=== PATIENT | female | born 1940 | race Caucasian/White ===

== ENCOUNTER 2018-05-29 12:13 | Inpatient (IN) | payer MEDICARE, BC ==
[2018-05-29] MEDS ORDERED: Zofran 4 MG/2 ML VIAL IV ONE (12:59)
[2018-05-29] MEDS ORDERED: Sodium Chloride 0.9% 1000 ML 1,000 ML IV SCH (13:00)
--- NOTE | 2018-05-29 13:06 | ERPHSYRPT ---
- History of Present Illness Time Seen by Provider: 05/29/18 12:59 Historian: patient Exam Limitations: no limitations Patient Subjective Stated Complaint: left lower abdominal pain x 1 1/2 weeks. hx diverticulitis vomiting x 2 yesterday. has had constipation but did have a small amount of stool today. Triage Nursing Assessment: alert and oriented. to BR prior to placemnt in room.. states pain in LLQ x 1 1/2 weeks../ seen at [facility] saturday and was told she had constipation and diverticulitis. abd tender on palpation to left lower abd. + BS but hypo. denies fever or urinary sx. Physician History: 77-year-old white female with history of diverticulitis, high blood pressure, back surgery and sciatica She arrives with complaint of pain in the left lower quadrant of her abdomen going on for 1-1/2 weeks. She was seen by a local nurse practitioner 2 days ago KUB was obtained and a CBC was obtained. Patient was apparently placed on Flagyl, amoxicillin, lactulose for constipation and apparent diverticulitis. Patient states she continues to have left lower quadrant pain she states she is now vomiting. She denies any fevers she does state she has had some frequent urination. Past medical history includes high blood pressure, diverticulitis, back surgery , sciatica, skin cancer Past surgical history includes back surgery, hysterectomy, appendectomy, bilateral ankle ORIF, left knee arthroscopically Social history patient denies tobacco alcohol or illicit drug use. Timing/Duration: week(s) (pain for 1-1/2 weeks vomiting for 2 days) Activities at Onset: none Quality: cramping Abdominal Pain Onset Location: LLQ Pain Radiation: no radiation Severity of Pain-Max: moderate Severity of Pain-Current: moderate Modifying Factors: Improves With: nothing Associated Symptoms: nausea, vomiting, No back, No chest pain, No diaphoresis, No diarrhea, No fever/chills, No fatigue, No headache, No heartburn, No loss of appetite, No neck pain, No rash, No shortness of breath, No syncope Previous symptoms: no prior history, recently seen (patient seen by local nurse practicioner 2 days ago) Allergies/Adverse Reactions: No Known Drug Allergies Allergy (Unverified 05/29/18 12:51) - Review of Systems Constitutional: No Fever, No Chills Eyes: No Symptoms Ears, Nose, & Throat: No Symptoms Respiratory: No Cough, No Dyspnea Cardiac: No Chest Pain, No Edema, No Syncope Abdominal/Gastrointestinal: Abdominal Pain (llq abdominal pain), Nausea, Vomiting Genitourinary Symptoms: Frequency, No Dysuria, No Hematuria, No Hesitancy, No Incontinence, No Urgency, No Urinary Retention, No Flank Pain, No Menorrhagia, No , No Vaginal Bleeding, No Vaginal Discharge, No Vaginal Itching Musculoskeletal: No Back Pain, No Neck Pain Skin: No Rash Neurological: No Dizziness, No Focal Weakness, No Sensory Changes Psychological: No Symptoms Endocrine: No Symptoms All Other Systems: Reviewed and Negative - Past Medical History Pertinent Past Medical History: Yes Neurological History: No Pertinent History Cardiac History: No Pertinent History Respiratory History: No Pertinent History Endocrine Medical History: No Pertinent History Musculoskeletal History: Arthritis, Degenerative Disk Disease GI Medical History: Diverticulitis, Diverticulosis - Past Surgical History Past Surgical History: No - Social History Smoking Status: Never smoker Exposure to second hand smoke: No Drug Use: none Patient Lives Alone: No - Female History Hx Now: No - Nursing Vital Signs Nursing Vital Signs: Initial Vital Signs Temperature 98.2 F 05/29/18 12:41 Pulse Rate 94 H 05/29/18 12:41 Respiratory Rate 18 05/29/18 12:41 Blood Pressure 171/95 05/29/18 12:41 O2 Sat by Pulse Oximetry 97 05/29/18 12:41 Pain Scale Pain Intensity 2 - Physical Exam General Appearance: mild distress Eye Exam: PERRL/EOMI, eyes nml inspection Ears, Nose, Throat Exam: normal ENT inspection, pharynx normal, moist mucous membranes Neck Exam: normal inspection, non-tender, supple, full range of motion Respiratory Exam: normal breath sounds, lungs clear, No respiratory distress Cardiovascular Exam: regular rate/rhythm, normal heart sounds, normal peripheral pulses Gastrointestinal/Abdomen Exam: soft, normal bowel sounds, tenderness (left lower quadrant tenderness), No distention, No mass, No guarding, No ecchymosis, No pulsatile mass, No rebound, No hernia, No hepatomegaly, No organomegaly Back Exam: normal inspection, normal range of motion, No CVA tenderness, No vertebral tenderness Extremity Exam: normal inspection, normal range of motion, pelvis stable Neurologic Exam: alert, oriented x 3, cooperative, preventive medicine officer II-XII nml as tested, normal mood/affect, nml cerebellar function, sensation nml, No motor deficits Skin Exam: normal color, warm, dry SpO2 Interpretation: normal (97%) SpO2: 97 Oxygen Delivery: Room Air - Course Nursing assessment & vital signs reviewed: Yes - CT Exams Abdomen/Pelvis CT Interpretation: Discussed w/radiologist (CT abdomen and pelvis: Impression: 1. Sigmoid diverticulitis. No free fluid/air. 2. Moderate fecal stasis. 3. Distended gallbladder without gallstones. Ultrasound may yield further information if clinically warranted. 4. Incidental hepatic cysts, benign appearing pelvic macro calcification, moderate hiatal hernia, multilevel degenerative spondylosis and grade 1-2 L4 spondylolisthesis with posterior fixation.) Ordered Tests: Active Orders 24 hr Category Date Time Status IV Insertion STAT Care 05/29/18 12:59 Active ABDOMEN AND PELVIS W/0 CONTRAS [CT] Stat Exams 05/29/18 14:03 Completed AMYLASE Stat Lab 05/29/18 13:25 Completed CBC W DIFF Stat Lab 05/29/18 13:25 Completed CMP Stat Lab 05/29/18 13:25 Completed CULTURE,URINE Stat Lab 05/29/18 13:26 Received LIPASE Stat Lab 05/29/18 13:25 Completed UA W/RFX UR CULTURE Stat Lab 05/29/18 13:26 Completed Medication Summary Generic Name Dose Route Start Last Admin Trade Name Freq PRN Reason Stop Dose Admin Sodium Chloride 1,000 mls @ 100 mls/hr 05/29/18 13:00 05/29/18 13:32 Sodium Chloride 0.9% 1000 Ml IV 06/28/18 12:59 100 mls/hr .Q10H JHON Administration Levofloxacin/Dextrose 500 mg in 100 mls @ 100 mls/hr 05/29/18 15:48 Levofloxacin 500mg/100ml D5w IV 05/29/18 16:47 STAT STA Discontinued Medications Generic Name Dose Route Start Last Admin Trade Name Freq PRN Reason Stop Dose Admin Morphine Sulfate 2 mg 05/29/18 14:57 05/29/18 15:11 Morphine Sulfate 2 Mg Inj IV 05/29/18 14:58 2 mg STAT ONE Administration Morphine Sulfate Confirm 05/29/18 15:08 Morphine Sulfate 2 Mg Inj Administered 05/29/18 15:09 Dose 2 mg .ROUTE .STK-MED ONE Ondansetron HCl 4 mg 05/29/18 12:59 05/29/18 13:32 Zofran 4 Mg/2 Ml Vial IV 05/29/18 13:00 4 mg STAT ONE Administration Ondansetron HCl Confirm 05/29/18 13:29 Zofran 4 Mg/2 Ml Vial Administered 05/29/18 13:30 Dose 4 mg .ROUTE .STK-MED ONE Lab/Rad Data: Laboratory Result Diagrams 05/29/18 13:25 05/29/18 13:25 Laboratory Results 05/29/18 05/29/18 05/29/18 Range/Units 13:26 13:25 13:25 WBC 10.7 H (4.0-10.5) K/mm3 RBC 3.75 L (4.1-5.4) M/mm3 Hgb 11.5 L (12.0-16.0) gm/dl Hct 36.0 (35-47) % MCV 96.0 (78-100) fl MCH 30.6 (26-32) pg MCHC 31.9 L (32-36) g/dl RDW 12.4 (11.5-14.0) % Plt Count 396 (150-450) K/mm3 MPV 9.1 (6-9.5) fl Gran % 80.5 H (36.0-66.0) % Eos # (Auto) 0.08 (0-0.5) Absolute Lymphs (auto) 1.00 (1.0-4.6) Absolute Monos (auto) 0.97 (0.0-1.3) Lymphocytes % 9.4 L (24.0-44.0) % Monocytes % 9.1 (0.0-12.0) % Eosinophils % 0.7 (0.00-5.0) % Basophils % 0.3 (0.0-0.4) % Absolute Granulocytes 8.60 H (1.4-6.9) Basophils # 0.03 (0-0.4) Sodium 140 (137-145) mmol/L Potassium 4.2 (3.5-5.1) mmol/L Chloride 103 (98-107) mmol/L Carbon Dioxide 24 (22-30) mmol/L Anion Gap 17.7 H (5-15) MEQ/L BUN 22 H (7-17) mg/dL Creatinine 1.03 (0.52-1.04) mg/dL Estimated GFR 55.1 ML/MIN Glucose 112 H (74-106) mg/dL Calcium 10.0 (8.4-10.2) mg/dL Total Bilirubin 0.70 (0.2-1.3) mg/dL AST 15 (14-36) U/L ALT 15 (0-35) U/L Alkaline Phosphatase 173 H (38-126) U/L Serum Total Protein 7.5 (6.3-8.2) g/dL Albumin 4.1 (3.5-5.0) g/dL Amylase 50 (30-110) U/L Lipase 58 (23-300) U/L Urine Color JEAN (YELLOW) Urine Appearance SLIGHTLY CLOUDY (CLEAR) Urine pH 5.0 (5-6) Ur Specific [place] 1.031 (1.005-1.025) Urine Protein NEGATIVE (Negative) Urine Ketones TRACE (NEGATIVE) Urine Blood NEGATIVE (0-5) Danilo/ul Urine Nitrite NEGATIVE (NEGATIVE) Urine Bilirubin NEGATIVE (NEGATIVE) Urine Urobilinogen NEGATIVE (0-1) mg/dL Ur Leukocyte Esterase TRACE (NEGATIVE) Urine WBC (Auto) 3-5 (0-5) /HPF Urine RBC (Auto) 3-5 (0-2) /HPF U Epithel Cells (Auto) FEW (FEW) /HPF Urine Bacteria (Auto) RARE (NEGATIVE) /HPF Calcium Oxalate Crystal 11-25 (NEGATIVE) /HPF Urine Mucus (Auto) SLIGHT (NEGATIVE) /HPF Urine Culture Reflexed YES (NO) Urine Glucose NEGATIVE (NEGATIVE) mg/dL - Progress Progress: improved Progress Note: 05/29/18 14:59 Patient has diverticulitis on CT abdomen also distended gallbladder. Patient vomiting at home with Flagyl and amoxicillin apparently taking lactulose as well. Will discuss case with Dr. Escalante. 05/29/18 15:[address] Escalante will place patient on observation provide IV Levaquin and Flagyl. We'll write for Phenergan for nausea and vomiting. Provide IV fluids - Departure Time of Disposition: 15:49 Departure Disposition: Observation Clinical Impression: Diverticulitis Abdominal pain Qualifiers: Abdominal location: left lower quadrant Qualified Code(s): R10.32 - Left lower quadrant pain Condition: Fair Critical Care Time: No Referrals: GUILLAUME ESCALANTE MD [Primary Care Provider] -
[2018-05-29 13:28] LABS: BASOPHIL % 0.3 % (0.0-0.4); Basophil (Absolute #) 0.03 (0-0.4); Eosinophil % 0.7 % (0.00-5.0); Eosinophil (Absolute #) 0.08 (0-0.5); Granulocytes % 80.5 % (36.0-66.0); Hemoglobin 11.5 gm/dl (12.0-16.0); Lymphocytes % 9.4 % (24.0-44.0); Mean Corpuscular Hgb Concent. 31.9 g/dl (32-36); Mean Platelet Volume 9.1 fl (6-9.5); Monocyte (Absolute #) 0.97 (0.0-1.3); Monocytes % 9.1 % (0.0-12.0); Platelet Count 396 K/mm3 (150-450); Red Blood Count 3.75 M/mm3 (4.1-5.4); Red Cell Distribution Width 12.4 % (11.5-14.0); White Blood Count 10.7 K/mm3 (4.0-10.5)
[2018-05-29] MEDS ORDERED: Zofran 4 MG/2 ML VIAL ONE (13:29)
[2018-05-29 13:34] LABS: Appearance SLIGHTLY CLOUDY (CLEAR); Bilirubin NEGATIVE (NEGATIVE); Blood NEGATIVE Ery/ul (0-5); Glucose NEGATIVE (NEGATIVE); Ketones TRACE (NEGATIVE); Leukocyte Esterase TRACE (NEGATIVE); Nitrite NEGATIVE (NEGATIVE); Protein,Urine Dip NEGATIVE (Negative); Specific Gravity 1.031 (1.005-1.025); Urobilinogen NEGATIVE mg/dL (0-1)
[2018-05-29 13:39] LABS: ALBUMIN 4.1 g/dL (3.5-5.0); ANION GAP 17.7 MEQ/L (5-15); BILIRUBIN,TOTAL 0.7 mg/dL (0.2-1.3); Creatinine 1 1.03 mg/dL (0.52-1.04); Potassium 4.2 mmol/L (3.5-5.1); Total Protein 7.5 g/dL (6.3-8.2)
[2018-05-29 14:00] LABS: Mean Corpuscular Hemoglobin 30.6 pg (26-32)
--- NOTE | 2018-05-29 14:52 | XRAY ---
Indication: Left lower quadrant pain. Constipation. Multiple contiguous axial images obtained through the abdomen and pelvis without contrast as ordered. Comparison: None Lung bases demonstrates mild fibrosis/scarring. No infiltrate or effusion. Heart is not enlarged. Moderate sized hiatal hernia with partial intrathoracic stomach. Noncontrasted stomach and bowel loops appear nonobstructed. Patient reports appendectomy and hysterectomy. There is moderate diffuse scattered colonic fecal debris throughout. Scattered sigmoid diverticulosis with mild wall thickening and stranding involving the mid to proximal segment favoring acute diverticulitis. No free fluid/air. There are 2 well-circumscribed benign-appearing pelvic macrocalcifications, largest 2.2 cm. Gallbladder is distended without gallstones. Liver demonstrates a few hepatic cysts, largest left lobe measuring 2.4 cm. Mild scattered vascular calcifications including both kidneys. No AAA. Remaining pancreas, spleen, adrenal glands, kidneys, ureters, and bladder appear unremarkable for noncontrast exam. Osseous structures demonstrates moderate multilevel thoracolumbar degenerative spondylosis. 8-9 mm L4 spondylolisthesis with posterior spinous process fixation hardware. No ventral or inguinal hernias. Impression: 1. Sigmoid diverticulitis. No free fluid/air. 2. Moderate fecal stasis. 3. Distended gallbladder without gallstones. Ultrasound may yield further information if clinically warranted. 4. Incidental hepatic cysts, benign appearing pelvic macrocalcifications, moderate hiatal hernia, multilevel degenerative spondylosis, and grade 1-2 L4 spondylolisthesis with posterior fixation hardware. CT DI 32.60
[2018-05-29] MEDS ORDERED: MORPHINE SULFATE 2 MG INJ IV ONE (14:57)
[2018-05-29] MEDS ORDERED: MORPHINE SULFATE 2 MG INJ ONE (15:08)
[2018-05-29] MEDS ORDERED: Levofloxacin 500MG/100ML D5W 500 MG/100 ML BAG IV STA (15:48)
[2018-05-29] MEDS ORDERED: Levofloxacin 500MG/100ML D5W 500 MG/100 ML BAG IV ONE (16:08)
[2018-05-29] MEDS: FLAGYL 500 MG IVPB 500 MG/100 ML BAG IV SCH (17:22)
[2018-05-29] MEDS: Phenergan 25 MG INJ IV PRN (18:58)
[2018-05-29] MEDS ORDERED: LACTULOSE 20 GM/30ML UD CUP ONE (20:44)
[2018-05-29] MEDS ORDERED: MAALOX ES 30 ML UNIT DOSE ONE (21:04)
[2018-05-29] MEDS: NEURONTIN 300 MG PO SCH (21:05)
[2018-05-29] MEDS: LACTULOSE 20 GM/30ML UD CUP PO SCH (21:05)
[2018-05-29] MEDS ORDERED: MAALOX ES 30 ML UNIT DOSE PO PRN (21:48)
[2018-05-29] MEDS: Zofran 4 MG/2 ML VIAL IV PRN (22:56)
[2018-05-29] MEDS: MORPHINE SULFATE 2 MG INJ IV PRN (22:56)
[2018-05-29] MEDS: Sodium Chloride 0.9% 1000 ML 1,000 ML IV SCH (23:07)
[2018-05-30] MEDS: FLAGYL 500 MG IVPB 500 MG/100 ML BAG IV SCH ×4 (00:52→18:11)
[2018-05-30] MEDS: Sodium Chloride 0.9% 1000 ML 1,000 ML IV SCH ×2 (02:23→14:45)
[2018-05-30 06:49] LABS: BASOPHIL % 0.4 % (0.0-0.4); Basophil (Absolute #) 0.03 (0-0.4); Eosinophil % 0.9 % (0.00-5.0); Eosinophil (Absolute #) 0.08 (0-0.5); Granulocyte Absolute (ANC) 6.54 (1.4-6.9); Granulocytes % 77.2 % (36.0-66.0); Hematocrit 35.5 % (35-47); Hemoglobin 11.1 gm/dl (12.0-16.0); Lymphocyte (Absolute #) 0.93 (1.0-4.6); Mean Cell Volume 97.5 fl (78-100); Mean Corpuscular Hgb Concent. 31.3 g/dl (32-36); Monocyte (Absolute #) 0.89 (0.0-1.3); Monocytes % 10.5 % (0.0-12.0); Platelet Count 413 K/mm3 (150-450); Red Blood Count 3.64 M/mm3 (4.1-5.4); Red Cell Distribution Width 12.7 % (11.5-14.0); White Blood Count 8.5 K/mm3 (4.0-10.5)
[2018-05-30 06:58] LABS: Mean Corpuscular Hemoglobin 30.4 pg (26-32)
[2018-05-30 07:20] LABS: ALBUMIN 3.6 g/dL (3.5-5.0); ALKALINE PHOSPHATASE 149 U/L (38-126); ANION GAP 17.6 MEQ/L (5-15); BLOOD UREA NITROGEN 18 mg/dL (7-17); CHLORIDE 105 mmol/L (98-107); Calcium 8.9 mg/dL (8.4-10.2); Carbon Dioxide 25 mmol/L (22-30); Creatinine 1 0.88 mg/dL (0.52-1.04); Glucose 120 mg/dL (74-106); Potassium 3.6 mmol/L (3.5-5.1); SGOT/AST 15 U/L (14-36); SGPT/ALT 13 U/L (0-35); SODIUM 144 mmol/L (137-145); Total Protein 6.6 g/dL (6.3-8.2)
[2018-05-30] MEDS: MORPHINE SULFATE 2 MG INJ IV PRN ×3 (08:32→20:12)
[2018-05-30] MEDS: Zofran 4 MG/2 ML VIAL IV PRN ×3 (08:32→20:12)
--- NOTE | 2018-05-30 08:45 | PCM.HP ---
History of Present Illness - Chief Complaint Chief Complaint: Diverticulities History of Present Illness: is a 77 year old female normally seen by Dr Paris who [facility] and treated for diverticulitis. She has worsened and been constipated, was put on augmentin. has a history of diverticulitis with microperforation in the past and did not require surgery, was under Dr José's care. she has had no fever, no rectal bleeding. - Review of Systems Constitutional: No Fever, No Chills Respiratory: No Cough, No Short Of Breath Cardiac: No Chest Pain, No Edema, No Syncope Abdominal/Gastrointestinal: Abdominal Pain, Nausea, Vomiting, Constipation Genitourinary Symptoms: No Dysuria Musculoskeletal: No Back Pain, No Neck Pain Skin: No Rash All Other Systems: Reviewed and Negative Medications & Allergies Home Medications: Home Medication List Amoxicillin/Potassium Clav [Augmentin 875-125 Tablet] 1 tablet PO BID 05/29/18 [ History Confirmed 05/29/18] Aspirin EC 81 mg [Ecotrin 81 mg] 81 mg PO DAILY 05/29/18 [History Confirmed 05/29/18] Calcium Carb, Citrate/Vit D3 [Calcium + D3 ER Tablet] 1 each PO DAILY 05/29/18 [ History Confirmed 05/29/18] Doxazosin Mesylate 1 mg PO DAILY 05/29/18 [History Confirmed 05/29/18] Gabapentin 300 mg PO HS 05/29/18 [History Confirmed 05/29/18] Ibuprofen 200 mg [Motrin 200 mg] 600 mg PO TID 05/29/18 [History Confirmed 05/29/18] L.acidoph,Paracasei, B.lactis [Probiotic] 1 each PO DAILY 05/29/18 [History Confirmed 05/29/18] Lactulose [Enulose] 15 gm PO BID 05/29/18 [History Confirmed 05/29/18] Metronidazole 500 mg [Flagyl 500 MG] 500 mg PO Q8H 05/29/18 [History Confirmed 05/29/18] Polyethylene Glycol 3350 17 gm [Miralax Powder 17GM PACKET] 17 gm PO DAILY [History Confirmed 05/29/18] Ranitidine HCl 300 mg PO DAILY 05/29/18 [History Confirmed 05/29/18] Solifenacin Succinate [Vesicare] 5 mg PO 3XW 05/29/18 [History Confirmed ] Spironolactone 25 mg [Aldactone 25 MG] 25 mg PO DAILY 05/29/18 [History Confirmed 05/29/18] Allergies/Adverse Reactions: Allergies Allergy/AdvReac Type Severity Reaction Status Date / Time No Known Drug Allergies Allergy Unverified 05/29/18 12:51 - Past Medical History Past Medical History: Yes Neurological History: No Pertinent History Cardiac History: No Pertinent History Respiratory History: No Pertinent History Endocrine Medical History: No Pertinent History Musculoskelatal History: Arthritis, Degenerative Disk Disease GI Medical History: Diverticulitis, Diverticulosis - Female History Are you now?: No - Past Surgical History Past Surgical History: Yes GI Surgical History: Appendectomy Musculskeletal Surgical Hx: Orthopedic Surgery Female Surgical History: Hysterectomy Other Surgical History: back surgery, bilateral ankle surgeries. left knee surgery. rhinoplasty. - Social History Smoking Status: Never smoker Exposure to second hand smoke: No Alcohol: None Drug Use: none - Physical Exam Vital Signs: Vital Signs - 24 hr Temp Pulse Resp BP Pulse Ox 05/30/18 07:53 98.4 F 110 H 20 136/67 92 L 05/30/18 07:05 93 L 05/30/18 04:00 98.0 F 111 H 16 141/71 92 L 05/30/18 00:00 99.0 F 108 H 19 154/79 95 05/29/18 20:00 97.9 F 103 H 20 138/66 96 05/29/18 17:00 94 L 05/29/18 16:50 97.9 F 100 H 20 156/73 96 05/29/18 16:47 97.9 F 100 H 20 156/73 96 05/29/18 16:07 97 05/29/18 16:01 102 H 16 143/90 98 05/29/18 15:20 80 18 96 05/29/18 14:45 93 H 16 155/93 96 05/29/18 12:41 98.2 F 94 H 18 171/95 97 General Appearance: no apparent distress, alert, obese Neurologic Exam: alert, oriented x 3 Eye Exam: PERRL/EOMI, eyes nml inspection Respiratory Exam: normal breath sounds, lungs clear, No respiratory distress Cardiovascular Exam: regular rate/rhythm, normal heart sounds, normal peripheral pulses Gastrointestinal/Abdomen Exam: tenderness (lower abdomen), No guarding, No rebound Back Exam: normal inspection, normal range of motion, No CVA tenderness, No vertebral tenderness Extremity Exam: normal inspection, normal range of motion, pelvis stable Skin Exam: normal color, warm, dry, No rash Results - Labs Lab/Micro Results: Lab Results-Last 24 Hours 05/29/18 05/29/18 05/29/18 Range/Units 13:25 13:25 13:26 WBC 10.7 H (4.0-10.5) K/mm3 RBC 3.75 L (4.1-5.4) M/mm3 Hgb 11.5 L (12.0-16.0) gm/dl Hct 36.0 (35-47) % MCV 96.0 (78-100) fl MCH 30.6 (26-32) pg MCHC 31.9 L (32-36) g/dl RDW 12.4 (11.5-14.0) % Plt Count 396 (150-450) K/mm3 MPV 9.1 (6-9.5) fl Gran % 80.5 H (36.0-66.0) % Eos # (Auto) 0.08 (0-0.5) Absolute Lymphs (auto) 1.00 (1.0-4.6) Absolute Monos (auto) 0.97 (0.0-1.3) Lymphocytes % 9.4 L (24.0-44.0) % Monocytes % 9.1 (0.0-12.0) % Eosinophils % 0.7 (0.00-5.0) % Basophils % 0.3 (0.0-0.4) % Absolute Granulocytes 8.60 H (1.4-6.9) Basophils # 0.03 (0-0.4) Sodium 140 (137-145) mmol/L Potassium 4.2 (3.5-5.1) mmol/L Chloride 103 (98-107) mmol/L Carbon Dioxide 24 (22-30) mmol/L Anion Gap 17.7 H (5-15) MEQ/L BUN 22 H (7-17) mg/dL Creatinine 1.03 (0.52-1.04) mg/dL Estimated GFR 55.1 ML/MIN Glucose 112 H (74-106) mg/dL Calcium 10.0 (8.4-10.2) mg/dL Total Bilirubin 0.70 (0.2-1.3) mg/dL AST 15 (14-36) U/L ALT 15 (0-35) U/L Alkaline Phosphatase 173 H (38-126) U/L Serum Total Protein 7.5 (6.3-8.2) g/dL Albumin 4.1 (3.5-5.0) g/dL Amylase 50 (30-110) U/L Lipase 58 (23-300) U/L Urine Color JEAN (YELLOW) Urine Appearance SLIGHTLY CLOUDY (CLEAR) Urine pH 5.0 (5-6) Ur Specific [place] 1.031 (1.005-1.025) Urine Protein NEGATIVE (Negative) Urine Ketones TRACE (NEGATIVE) Urine Blood NEGATIVE (0-5) Danilo/ul Urine Nitrite NEGATIVE (NEGATIVE) Urine Bilirubin NEGATIVE (NEGATIVE) Urine Urobilinogen NEGATIVE (0-1) mg/dL Ur Leukocyte Esterase TRACE (NEGATIVE) Urine WBC (Auto) 3-5 (0-5) /HPF Urine RBC (Auto) 3-5 (0-2) /HPF U Epithel Cells (Auto) FEW (FEW) /HPF Urine Bacteria (Auto) RARE (NEGATIVE) /HPF Calcium Oxalate Crystal 11-25 (NEGATIVE) /HPF Urine Mucus (Auto) SLIGHT (NEGATIVE) /HPF Urine Culture Reflexed YES (NO) Urine Glucose NEGATIVE (NEGATIVE) mg/dL 05/30/18 05/30/18 Range/Units 06:30 06:30 WBC 8.5 (4.0-10.5) K/mm3 RBC 3.64 L (4.1-5.4) M/mm3 Hgb 11.1 L (12.0-16.0) gm/dl Hct 35.5 (35-47) % MCV 97.5 (78-100) fl MCH 30.4 (26-32) pg MCHC 31.3 L (32-36) g/dl RDW 12.7 (11.5-14.0) % Plt Count 413 (150-450) K/mm3 MPV 9.0 (6-9.5) fl Gran % 77.2 H (36.0-66.0) % Eos # (Auto) 0.08 (0-0.5) Absolute Lymphs (auto) 0.93 L (1.0-4.6) Absolute Monos (auto) 0.89 (0.0-1.3) Lymphocytes % 11.0 L (24.0-44.0) % Monocytes % 10.5 (0.0-12.0) % Eosinophils % 0.9 (0.00-5.0) % Basophils % 0.4 (0.0-0.4) % Absolute Granulocytes 6.54 (1.4-6.9) Basophils # 0.03 (0-0.4) Sodium 144 (137-145) mmol/L Potassium 3.6 (3.5-5.1) mmol/L Chloride 105 (98-107) mmol/L Carbon Dioxide 25 (22-30) mmol/L Anion Gap 17.6 H (5-15) MEQ/L BUN 18 H (7-17) mg/dL Creatinine 0.88 (0.52-1.04) mg/dL Estimated GFR > 60.0 ML/MIN Glucose 120 H (74-106) mg/dL Calcium 8.9 (8.4-10.2) mg/dL Total Bilirubin 0.50 (0.2-1.3) mg/dL AST 15 (14-36) U/L ALT 13 (0-35) U/L Alkaline Phosphatase 149 H (38-126) U/L Serum Total Protein 6.6 (6.3-8.2) g/dL Albumin 3.6 (3.5-5.0) g/dL Amylase (30-110) U/L Lipase (23-300) U/L Urine Color (YELLOW) Urine Appearance (CLEAR) Urine pH (5-6) Ur Specific [place] (1.005-1.025) Urine Protein (Negative) Urine Ketones (NEGATIVE) Urine Blood (0-5) Danilo/ul Urine Nitrite (NEGATIVE) Urine Bilirubin (NEGATIVE) Urine Urobilinogen (0-1) mg/dL Ur Leukocyte Esterase (NEGATIVE) Urine WBC (Auto) (0-5) /HPF Urine RBC (Auto) (0-2) /HPF U Epithel Cells (Auto) (FEW) /HPF Urine Bacteria (Auto) (NEGATIVE) /HPF Calcium Oxalate Crystal (NEGATIVE) /HPF Urine Mucus (Auto) (NEGATIVE) /HPF Urine Culture Reflexed (NO) Urine Glucose (NEGATIVE) mg/dL Microbiology 05/29/18 13:26 Urine Culture - Preliminary Clean Catch Midstream NO GROWTH TO DATE - Radiology Impressions Radiology Exams & Impressions: Radiology Procedures Category Date Time Status ABDOMEN AND PELVIS W/0 CONTRAS [CT] Stat Exams 05/29/18 14:03 Completed Assessment/Plan (1) Diverticulitis Current Visit: Yes Status: Acute Assessment & Plan: continue levaquin and flagyl, currently on clear liquid diet Code(s): K57.92 - DVTRCLI OF INTEST, PART UNSP, W/O PERF OR ABSCESS W/O BLEED (2) Constipation Current Visit: Yes Status: Acute Assessment & Plan: will order mag citrate and dulcolax suppository Code(s): K59.00 - CONSTIPATION, UNSPECIFIED (3) Enlarged gallbladder Current Visit: Yes Status: Acute Assessment & Plan: order GB ulatrasound, no signs of biliary colic or cholecystitis at this time Code(s): K82.8 - OTHER SPECIFIED DISEASES OF GALLBLADDER
[2018-05-30] MEDS ORDERED: NON-FORMULARY ITEM (Solifenacin Succinate [Vesicare] 5 MG) PO SCH (09:30)
[2018-05-30] MEDS ORDERED: NON-FORMULARY ITEM (Doxazosin Mesylate [Doxazosin Mesylate] 1 MG) PO SCH (10:00)
[2018-05-30] MEDS ORDERED: NON-FORMULARY ITEM (Ranitidine Hcl [Ranitidine Hcl] 300 MG) PO SCH (10:00)
[2018-05-30] MEDS ORDERED: NON-FORMULARY ITEM (L.Acidoph,Paracasei, B.Lactis [Probiotic] 1 EACH) PO SCH (10:00)
[2018-05-30] MEDS: Acidophilus TABLET PO SCH (10:23)
[2018-05-30] MEDS: LACTULOSE 20 GM/30ML UD CUP PO SCH ×2 (10:24→21:16)
[2018-05-30] MEDS: Ditropan 5 MG PO SCH (10:27)
[2018-05-30] MEDS: Aldactone 25 MG PO SCH (10:27)
[2018-05-30] MEDS: Pepcid 20 MG PO SCH (10:28)
[2018-05-30] MEDS: ECOTRIN 81 MG PO SCH (10:30)
[2018-05-30] MEDS: CARDURA 2 MG PO SCH (10:30)
[2018-05-30] MEDS: ENOXAPARIN SODIUM SQ SCH (10:32)
[2018-05-30] MEDS: Levaquin 250MG/50ML D5W 250 MG/50 ML BAG IV SCH (10:32)
[2018-05-30] MEDS: Miralax Powder 17GM PACKET PO SCH (10:32)
--- NOTE | 2018-05-30 10:52 | XRAY ---
Indication: Distended gallbladder on recent CT. Two-dimensional gallbladder sonogram performed. Comparison: None Gallbladder is moderately distended without gallstones, wall thickening, or pericholecystic fluid. Common bile duct measures 4.5 mm. No intrahepatic biliary distention. 2.0 x 1.1 cm right lobe hepatic cyst adjacent to the gallbladder. Remaining visualized portions of the liver homogeneous. No ascites. Visualized pancreas and right kidney sonographically unremarkable. Right kidney measures 9.1 cm in length. Impression: 1. Distended gallbladder without cholelithiasis, cholecystitis, or biliary distention. 2. Incidental right lobe hepatic cyst corresponding to CT finding.
[2018-05-30] MEDS: NEURONTIN 300 MG PO SCH (21:15)
[2018-05-31] MEDS: FLAGYL 500 MG IVPB 500 MG/100 ML BAG IV SCH ×4 (01:11→18:09)
[2018-05-31] MEDS: Sodium Chloride 0.9% 1000 ML 1,000 ML IV SCH ×2 (01:12→15:24)
[2018-05-31] MEDS: Zofran 4 MG/2 ML VIAL IV PRN (03:18)
[2018-05-31] MEDS: MORPHINE SULFATE 2 MG INJ IV PRN ×3 (03:18→14:29)
[2018-05-31 06:20] LABS: BASOPHIL % 0.5 % (0.0-0.4); Basophil (Absolute #) 0.05 (0-0.4); Eosinophil (Absolute #) 0.19 (0-0.5); Granulocyte Absolute (ANC) 7.19 (1.4-6.9); Granulocytes % 75.3 % (36.0-66.0); Hematocrit 34.3 % (35-47); Hemoglobin 10.6 gm/dl (12.0-16.0); Lymphocytes % 11.5 % (24.0-44.0); Mean Cell Volume 97.4 fl (78-100); Mean Corpuscular Hemoglobin 30.1 pg (26-32); Mean Corpuscular Hgb Concent. 30.9 g/dl (32-36); Mean Platelet Volume 8.9 fl (6-9.5); Monocyte (Absolute #) 1.02 (0.0-1.3); Monocytes % 10.7 % (0.0-12.0); Platelet Count 407 K/mm3 (150-450); Red Blood Count 3.52 M/mm3 (4.1-5.4); Red Cell Distribution Width 12.4 % (11.5-14.0); White Blood Count 9.6 K/mm3 (4.0-10.5)
[2018-05-31 06:42] LABS: ALBUMIN 3.4 g/dL (3.5-5.0); ALKALINE PHOSPHATASE 128 U/L (38-126); ANION GAP 12.6 MEQ/L (5-15); BLOOD UREA NITROGEN 16 mg/dL (7-17); CHLORIDE 108 mmol/L (98-107); Calcium 8.7 mg/dL (8.4-10.2); Carbon Dioxide 24 mmol/L (22-30); Creatinine 1 0.77 mg/dL (0.52-1.04); Glucose 111 mg/dL (74-106); Potassium 3.7 mmol/L (3.5-5.1); SGOT/AST 13 U/L (14-36); SGPT/ALT 12 U/L (0-35); SODIUM 142 mmol/L (137-145); Total Protein 6.3 g/dL (6.3-8.2)
[2018-05-31 07:35] LABS: BAND 2 % (0.0-2.0); Basophil 1 % (0.0-1.0); Lymphocytes 11 % (24-44); Monocyte 12 % (0.0-12.0); Neutrophils 74 % (36.0-66.0); Platelet Estimate NORMAL (NORMAL); Total Cells Counted 100
[2018-05-31] MEDS: LACTULOSE 20 GM/30ML UD CUP PO SCH ×2 (08:47→21:47)
[2018-05-31] MEDS: Miralax Powder 17GM PACKET PO SCH (08:47)
[2018-05-31] MEDS: ENOXAPARIN SODIUM SQ SCH (08:48)
[2018-05-31] MEDS: ECOTRIN 81 MG PO SCH (08:48)
[2018-05-31] MEDS: CARDURA 2 MG PO SCH (08:48)
[2018-05-31] MEDS: Acidophilus TABLET PO SCH (08:48)
[2018-05-31] MEDS: Ditropan 5 MG PO SCH (08:49)
[2018-05-31] MEDS: Pepcid 20 MG PO SCH (08:49)
[2018-05-31] MEDS: Aldactone 25 MG PO SCH (08:49)
[2018-05-31] MEDS: Levaquin 250MG/50ML D5W 250 MG/50 ML BAG IV SCH (10:33)
[2018-05-31] MEDS: Colace 100 MG PO SCH ×2 (10:33→21:47)
[2018-05-31] MEDS ORDERED: Dulcolax 10 MG SUPP PR ONE (10:58)
--- NOTE | 2018-05-31 11:04 | PCM.NOTE ---
Date and Time: 05/31/18 1101 Subjective Assessment: she says the left lower quarant pain is improving but she feels like she needs to have a BM it has been 10 days since her last normal Bm she had a small one 3 days ago. She feels contractions of intermittent pain and nausea. She has had chronic difficulty with constipation. She has not had anything yet to help did not get the suppository yesterday. no fevers no chills no shortness of breath she is requesting to have the telemetry removed no chest pain no cardiac history per the patient. Objective Exam General Appearance: no apparent distress, alert, obese Neurologic Exam: alert, oriented x 3, cooperative, normal mood/affect, nml cerebellar function, sensation nml, No motor deficits Skin Exam: normal color, warm, dry Eye Exam: PERRL, EOMI, eyes nml inspection Ears, Nose, Throat Exam: normal ENT inspection, pharynx normal, moist mucous membranes Neck Exam: normal inspection, non-tender, supple, full range of motion Respiratory Exam: normal breath sounds, lungs clear, No respiratory distress Cardiovascular Exam: regular rate/rhythm, normal heart sounds Gastrointestinal/Abdomen Exam: soft, normal bowel sounds, tenderness (diffuse mild), No distention, No mass, No guarding, No rebound Extremity Exam: normal inspection, normal range of motion Back Exam: normal inspection, normal range of motion, No CVA tenderness, No vertebral tenderness Pelvic Exam: deferred Rectal Exam: deferred OBJECTIVE DATA Vital Signs: Vital Signs - 24 hr Temp Pulse Resp BP Pulse Ox 05/31/18 07:18 98 F 90 20 133/63 94 L 05/31/18 04:14 98.4 F 98 H 20 156/71 96 05/31/18 00:10 98.3 F 112 H 22 154/69 95 05/30/18 19:59 98.4 F 101 H 20 134/75 94 L 05/30/18 16:00 98.4 F 100 H 22 162/81 92 L 05/30/18 12:00 98.6 F 95 H 20 125/61 95 Pain Assessment - Last Documented Pain Intensity 8 Pain Scale Used 0-10 Pain Scale Intake and Output: Intake & Output 05/28/18 05/29/18 05/30/18 05/31/18 11:59 11:59 11:59 11:59 Intake Total 3486 4958 Output Total 340 340 Balance 2389 6770 Weight 96.9 kg 96.8 kg Lab Results: Lab Results-Last 24 Hours 05/31/18 05/31/18 Range/Units 05:55 05:55 WBC 9.6 (4.0-10.5) K/mm3 RBC 3.52 L (4.1-5.4) M/mm3 Hgb 10.6 L (12.0-16.0) gm/dl Hct 34.3 L (35-47) % MCV 97.4 (78-100) fl MCH 30.1 (26-32) pg MCHC 30.9 L (32-36) g/dl RDW 12.4 (11.5-14.0) % Plt Count 407 (150-450) K/mm3 MPV 8.9 (6-9.5) fl Gran % 75.3 H (36.0-66.0) % Eos # (Auto) 0.19 (0-0.5) Absolute Lymphs (auto) 1.10 (1.0-4.6) Absolute Monos (auto) 1.02 (0.0-1.3) Lymphocytes % 11.5 L (24.0-44.0) % Monocytes % 10.7 (0.0-12.0) % Eosinophils % 2.0 (0.00-5.0) % Basophils % 0.5 (0.0-0.4) % Absolute Granulocytes 7.19 H (1.4-6.9) Segmented Neutrophils 74 H (36.0-66.0) % Band Neutrophils 2 (0.0-2.0) % Lymphocytes (Manual) 11 L (24-44) % Monocytes (Manual) 12 (0.0-12.0) % Basophils (Manual) 1 (0.0-1.0) % Basophils # 0.05 (0-0.4) Platelet Estimate NORMAL (NORMAL) RBC Morphology NORMAL Sodium 142 (137-145) mmol/L Potassium 3.7 (3.5-5.1) mmol/L Chloride 108 H (98-107) mmol/L Carbon Dioxide 24 (22-30) mmol/L Anion Gap 12.6 (5-15) MEQ/L BUN 16 (7-17) mg/dL Creatinine 0.77 (0.52-1.04) mg/dL Estimated GFR > 60.0 ML/MIN Glucose 111 H (74-106) mg/dL Calcium 8.7 (8.4-10.2) mg/dL Total Bilirubin 0.40 (0.2-1.3) mg/dL AST 13 L (14-36) U/L ALT 12 (0-35) U/L Alkaline Phosphatase 128 H (38-126) U/L Serum Total Protein 6.3 (6.3-8.2) g/dL Albumin 3.4 L (3.5-5.0) g/dL Radiology Exams: Radiology Procedures Category Date Time Status ABDOMEN AND PELVIS W/0 CONTRAS [CT] Stat Exams 05/29/18 14:03 Completed GALLBLADDER [US] Routine Exams 05/30/18 10:17 Completed Assessment/Plan (1) Diverticulitis Current Visit: Yes Status: Acute Onset Date: ~05/29/18 Assessment & Plan: improving on flagyl + levaquin no BM will trial suppository continue miralax check repeat abdominal series if not improving no peritoneal signs on exam currently. ct without evidence of obstruction Code(s): K57.92 - DVTRCLI OF INTEST, PART UNSP, W/O PERF OR ABSCESS W/O BLEED (2) Constipation Current Visit: Yes Status: Acute Onset Date: ~05/29/18 Code(s): K59.00 - CONSTIPATION, UNSPECIFIED
[2018-05-31] MEDS: Phenergan 25 MG INJ IV PRN (13:58)
[2018-05-31] MEDS ORDERED: CITROMA 296 ML PO ONE (16:04)
[2018-05-31] MEDS: TYLENOL 325 MG PO PRN ×2 (16:26→20:38)
[2018-05-31] MEDS: NEURONTIN 300 MG PO SCH (21:47)
[2018-06-01] MEDS: FLAGYL 500 MG IVPB 500 MG/100 ML BAG IV SCH ×4 (00:03→17:09)
[2018-06-01] MEDS: TYLENOL 325 MG PO PRN (02:33)
[2018-06-01 06:08] LABS: BASOPHIL % 0.7 % (0.0-0.4); Basophil (Absolute #) 0.06 (0-0.4); Eosinophil % 3.7 % (0.00-5.0); Eosinophil (Absolute #) 0.32 (0-0.5); Granulocyte Absolute (ANC) 6.07 (1.4-6.9); Granulocytes % 69.4 % (36.0-66.0); Hematocrit 33.6 % (35-47); Hemoglobin 10.5 gm/dl (12.0-16.0); Lymphocyte (Absolute #) 1.34 (1.0-4.6); Lymphocytes % 15.3 % (24.0-44.0); Mean Cell Volume 97.7 fl (78-100); Mean Corpuscular Hemoglobin 30.5 pg (26-32); Mean Corpuscular Hgb Concent. 31.3 g/dl (32-36); Mean Platelet Volume 8.8 fl (6-9.5); Monocyte (Absolute #) 0.95 (0.0-1.3); Monocytes % 10.9 % (0.0-12.0); Platelet Count 427 K/mm3 (150-450); Red Blood Count 3.44 M/mm3 (4.1-5.4); Red Cell Distribution Width 12.5 % (11.5-14.0); White Blood Count 8.7 K/mm3 (4.0-10.5)
[2018-06-01 06:31] LABS: ALBUMIN 3.1 g/dL (3.5-5.0); ALKALINE PHOSPHATASE 131 U/L (38-126); ANION GAP 10.7 MEQ/L (5-15); BLOOD UREA NITROGEN 13 mg/dL (7-17); CHLORIDE 107 mmol/L (98-107); Calcium 8.8 mg/dL (8.4-10.2); Carbon Dioxide 25 mmol/L (22-30); Creatinine 1 0.75 mg/dL (0.52-1.04); Glucose 108 mg/dL (74-106); Potassium 3.5 mmol/L (3.5-5.1); SGOT/AST 14 U/L (14-36); SGPT/ALT 13 U/L (0-35); SODIUM 139 mmol/L (137-145); Total Protein 5.9 g/dL (6.3-8.2)
[2018-06-01] MEDS: ECOTRIN 81 MG PO SCH (10:26)
[2018-06-01] MEDS: CARDURA 2 MG PO SCH (10:26)
[2018-06-01] MEDS: Acidophilus TABLET PO SCH (10:26)
[2018-06-01] MEDS: Colace 100 MG PO SCH ×2 (10:26→21:40)
[2018-06-01] MEDS: Pepcid 20 MG PO SCH (10:26)
[2018-06-01] MEDS: Aldactone 25 MG PO SCH (10:27)
[2018-06-01] MEDS: Miralax Powder 17GM PACKET PO SCH (10:28)
[2018-06-01] MEDS: LACTULOSE 20 GM/30ML UD CUP PO SCH ×2 (10:29→21:41)
[2018-06-01] MEDS: ENOXAPARIN SODIUM SQ SCH (10:31)
[2018-06-01] MEDS: Levaquin 250MG/50ML D5W 250 MG/50 ML BAG IV SCH (10:33)
--- NOTE | 2018-06-01 12:09 | PCM.NOTE ---
Date and Time: 06/01/18 1206 Subjective Assessment: she had small regular bm yesterday she still feels overall uncomfortable and is weak. no specific pain she just describes and aching in her abdomen. some nausea has not eaten much no vomiting. Objective Exam General Appearance: no apparent distress, obese Neurologic Exam: alert, oriented x 3, cooperative Skin Exam: warm, dry Eye Exam: No scleral icterus, No pale conjunctivae Ears, Nose, Throat Exam: moist mucous membranes Neck Exam: non-tender, supple Respiratory Exam: normal breath sounds, rhonchi Cardiovascular Exam: regular rate/rhythm, normal heart sounds Gastrointestinal/Abdomen Exam: soft, normal bowel sounds, tenderness (minimal in the bilateral lower quadrants), No distention, No guarding, No rebound Extremity Exam: normal inspection, No calf tenderness, No pedal edema OBJECTIVE DATA Vital Signs: Vital Signs - 24 hr Temp Pulse Resp BP Pulse Ox 06/01/18 07:09 97.7 F 86 20 140/65 97 06/01/18 04:00 98.2 F 100 H 22 156/74 96 05/31/18 23:58 98.0 F 100 H 20 122/64 93 L 05/31/18 20:00 98.4 F 95 H 20 136/67 95 05/31/18 16:19 97.5 F 92 H 20 125/70 97 05/31/18 12:31 98.1 F 86 20 124/70 95 Pain Assessment - Last Documented Pain Intensity 2 Pain Scale Used 0-10 Pain Scale Intake and Output: Intake & Output 05/30/18 05/31/18 06/01/18 06/02/18 11:59 11:59 11:59 11:59 Intake Total 3486 4958 3405 Output Total 510 942 9150 Balance 3146 4618 2205 Weight 96.9 kg 96.8 kg 95.4 kg Lab Results: Lab Results-Last 24 Hours 06/01/18 06/01/18 Range/Units 05:45 05:45 WBC 8.7 (4.0-10.5) K/mm3 RBC 3.44 L (4.1-5.4) M/mm3 Hgb 10.5 L (12.0-16.0) gm/dl Hct 33.6 L (35-47) % MCV 97.7 (78-100) fl MCH 30.5 (26-32) pg MCHC 31.3 L (32-36) g/dl RDW 12.5 (11.5-14.0) % Plt Count 427 (150-450) K/mm3 MPV 8.8 (6-9.5) fl Gran % 69.4 H (36.0-66.0) % Eos # (Auto) 0.32 (0-0.5) Absolute Lymphs (auto) 1.34 (1.0-4.6) Absolute Monos (auto) 0.95 (0.0-1.3) Lymphocytes % 15.3 L (24.0-44.0) % Monocytes % 10.9 (0.0-12.0) % Eosinophils % 3.7 (0.00-5.0) % Basophils % 0.7 (0.0-0.4) % Absolute Granulocytes 6.07 (1.4-6.9) Basophils # 0.06 (0-0.4) Sodium 139 (137-145) mmol/L Potassium 3.5 (3.5-5.1) mmol/L Chloride 107 (98-107) mmol/L Carbon Dioxide 25 (22-30) mmol/L Anion Gap 10.7 (5-15) MEQ/L BUN 13 (7-17) mg/dL Creatinine 0.75 (0.52-1.04) mg/dL Estimated GFR > 60.0 ML/MIN Glucose 108 H (74-106) mg/dL Calcium 8.8 (8.4-10.2) mg/dL Total Bilirubin 0.40 (0.2-1.3) mg/dL AST 14 (14-36) U/L ALT 13 (0-35) U/L Alkaline Phosphatase 131 H (38-126) U/L Serum Total Protein 5.9 L (6.3-8.2) g/dL Albumin 3.1 L (3.5-5.0) g/dL Multi-Disciplinary Progress Notes: Multi-Disciplinary Progress Notes 06/01/18 11:00 (created 06/01/18 11:19) Case Management Note by Nissa Banks VISITED WITH PT AND REVIEWED DISCHARGE PLAN, CONTINUES TO PLAN TO RETURN HOME WITH ON DISCHARGE. DENIES NEEDS. INDEPENDENT WITH ALL ADL'S. WILL FOLLOW. Initialized on 06/01/18 11:19 - END OF NOTE Assessment/Plan (1) Diverticulitis Current Visit: Yes Status: Acute Onset Date: ~05/29/18 Assessment & Plan: she is improving from an infection stand point but very weak appearing still and unstable gait it is her and her at home she is still very nauseated as well and not eating or drinking well try to improve constipation and ambulation possibly home tomorrow Code(s): K57.92 - DVTRCLI OF INTEST, PART UNSP, W/O PERF OR ABSCESS W/O BLEED (2) Constipation Current Visit: Yes Status: Acute Onset Date: ~05/29/18 Assessment & Plan: at home since her previous episode of diverticulitis treated at [facility] by Dr. José 3 years ago she has taken 3 colace a day with a miralax daily and a senna at night she is currnetly getting laculose and colace she had a responce to the suppository will add senna back now as she uses this at home. Code(s): K59.00 - CONSTIPATION, UNSPECIFIED
[2018-06-01] MEDS: NEURONTIN 300 MG PO SCH (21:41)
[2018-06-01] MEDS: SENOKOT 8.6 MG PO SCH (21:41)
[2018-06-02] MEDS: FLAGYL 500 MG IVPB 500 MG/100 ML BAG IV SCH ×2 (01:03→06:01)
[2018-06-02 08:33] VITALS: O2SAT 92
[2018-06-02] MEDS: CARDURA 2 MG PO SCH (09:23)
[2018-06-02] MEDS: SENOKOT 8.6 MG PO SCH (09:24)
[2018-06-02] MEDS: Acidophilus TABLET PO SCH (09:25)
[2018-06-02] MEDS: ECOTRIN 81 MG PO SCH (09:25)
[2018-06-02] MEDS: Colace 100 MG PO SCH (09:26)
[2018-06-02] MEDS: Pepcid 20 MG PO SCH (09:26)
[2018-06-02] MEDS: Aldactone 25 MG PO SCH (09:26)
[2018-06-02] MEDS: LACTULOSE 20 GM/30ML UD CUP PO SCH (09:27)
[2018-06-02] MEDS: Miralax Powder 17GM PACKET PO SCH (09:28)
[2018-06-02] MEDS: ENOXAPARIN SODIUM SQ SCH (09:28)
[2018-06-02] MEDS: Levaquin 250MG/50ML D5W 250 MG/50 ML BAG IV SCH (09:32)
--- NOTE | 2018-06-02 11:07 | PCM.DS ---
Discharge Summary Date of Admission: 05/30/18 08:39 Admitting Physician: GUILLAUME ESCALANTE Primary Care Provider: GUILLAUME ESCALANTE Allergies Allergies No Known Drug Allergies Allergy (Unverified 05/29/18 12:51) Hospital Summary - Hospital Course Hospital Course: Pt is [address] Paris, transferring to Dr. Escalante, who was admitted through ER with abd pain and found to have diverticulitis. She had been seen by [facility] 2d prior to admission. She has been on levaquin 250mg IV daily and flagyl 500mg IV q6h (day #5 today). She was feeling better yesterday but was still quite weak. Has been up to the bathroom and done some walking since then and is doing quite well. Charbel increasing amounts of po without issues. Would like to d/c home today. On admission, CT abd/pelvis wiht sigmoid diverticulitis, mod fecal stasis, distended GB without cholelithiasis. Also had incidental hepatic cysts, mod hiatal hernia, benign looking pelvic microcalcifications, and degen disease of the spine. F/u with gb u/s showed distended gallbladder, no cholelithiasis or cholecystitis, no biliary distension. incidental R lobe hepatic cyst. - Vitals & Intake/Output Vital Signs: Vital Signs Temperature 98.5 F 06/02/18 08:00 Pulse Rate 90 06/02/18 08:00 Respiratory Rate 20 06/02/18 08:00 Blood Pressure 138/71 06/02/18 08:00 O2 Sat by Pulse Oximetry 92 L 06/02/18 08:00 Intake & Output: Intake & Output 05/30/18 05/31/18 06/01/18 06/02/18 11:59 11:59 11:59 11:59 Intake Total 3486 4958 3405 2462 Output Total 575 189 2232 700 Balance 3146 4618 2205 1762 Weight 96.9 kg 96.8 kg 95.4 kg 100.1 kg - Lab Result Diagrams: 06/01/18 05:45 06/01/18 05:45 Micro Results-Entire Visit: Microbiology 05/29/18 13:26 Urine Culture - Final Clean Catch Midstream NO GROWTH Discharge Exam General Appearance: no apparent distress, alert Neurologic Exam: oriented x 3, cooperative Skin Exam: normal color, warm, dry, No rash Respiratory Exam: normal breath sounds, lungs clear, No crackles/rales, No rhonchi, No wheezing Cardiovascular Exam: regular rate/rhythm, normal heart sounds, No murmur Gastrointestinal/Abdomen Exam: soft, normal bowel sounds, No tenderness, No distention, No mass, No guarding, No rebound Extremity Exam: normal inspection, No pedal edema, No swelling Back Exam: normal inspection, No rash Final Diagnosis/Problem List - Final Discharge Diagnosis/Problem (1) Diverticulitis Current Visit: Yes Status: Acute Onset Date: ~05/29/18 Assessment & Plan: Doing much better, home on po levaquin and flagyl to finish 10d today (today is day #5). F/u op with Dr. Escalante. (2) Enlarged gallbladder Current Visit: Yes Status: Acute Onset Date: ~05/29/18 Assessment & Plan: F/u outpatient as needed. - Discharge Disposition: Home, Self-Care Condition: Good Prescriptions: New Docusate Sodium 100 mg [Colace 100 MG] 100 mg PO BID PRN #30 capsule PRN Reason: Constipation Levofloxacin [Levaquin] 250 mg PO DAILY #5 tablet Continue Aspirin EC 81 mg [Ecotrin 81 mg] 81 mg PO DAILY Polyethylene Glycol 3350 17 gm [Miralax Powder 17GM PACKET] 17 gm PO DAILY Spironolactone 25 mg [Aldactone 25 MG] 25 mg PO DAILY Solifenacin Succinate [Vesicare] 5 mg PO 3XW Ranitidine HCl 300 mg PO DAILY Metronidazole 500 mg [Flagyl 500 MG] 500 mg PO Q8H Lactulose [Enulose] 15 gm PO BID L.acidoph,Paracasei, B.lactis [Probiotic] 1 each PO DAILY Gabapentin 300 mg PO HS Doxazosin Mesylate 1 mg PO DAILY Calcium Carb, Citrate/Vit D3 [Calcium + D3 ER Tablet] 1 each PO DAILY Discontinued Ibuprofen 200 mg [Motrin 200 mg] 600 mg PO TID Amoxicillin/Potassium Clav [Augmentin 875-125 Tablet] 1 tablet PO BID Additional Instructions: Hold ibuprofen until discussed with Dr. Escalante in office. Always take ibuprofen with food. Follow up with: GUILLAUME ESCALANTE MD [Primary Care Provider] - 1 Week
[2018-06-02 13:47] VITALS: BP 146/80; PULSE 100
== END 2018-06-02 13:30 | disposition home or self-care (01) | DRG 392 ==
LOC: ED 12:13 → MED SURG 16:23 → OBSVTOIN 05-30 08:39
PROVIDERS: ADMIT Family Medicine; ATTEND Family Medicine
DX: K57.92 Diverticulitis of intestine, part unspecified, without perforation or abscess without bleeding (principal); K82.8 Other specified diseases of gallbladder; M19.90 Unspecified osteoarthritis, unspecified site; K59.00 Constipation, unspecified; R10.31 Right lower quadrant pain; Z85.828 Personal history of other malignant neoplasm of skin
CPT/HCPCS: 36000; 36415; 74176; 76705; 80053; 81001; 82150; 83690; 85025; 87086; 93268; 94760; 96360; 96361; 96365; 96374; 96375; 99285; G0378; J1650; J1956; J2270; J2405; J2550; A9270-GY

== ENCOUNTER 2018-06-27 19:51 | Inpatient (IN) | payer MEDICARE, BC ==
--- NOTE | 2018-06-27 20:32 | ERPHSYRPT ---
- History of Present Illness Time Seen by Provider: 06/27/18 20:20 Historian: patient, family, japanese interpreter Patient Subjective Stated Complaint: pt is alert and oriented. pt is ambulatory with a steady gait. pt comes in with c/o n/v and abd pain. pt went to [facility] and was put on Levaquin today and then later began vomiting. pt states she has vomited 3x since 1600. pt denies diarrhea. bowel sounds present x4. pt states her last bm was today at 1800. Triage Nursing Assessment: see above Physician History: The patient is a 77-year-old female with her complaining of lower abdominal pain and vomiting that began today. She was seen in [facility] today. She has a recent history of diverticulitis and was hospitalized for this ailment. She was discharged from this hospital on [facility]. [facility] prescribed Levaquin today. Says the Levaquin, she has vomited. She is lightheaded. She denies diarrhea. Her past medical history is significant for HTN, GERD, and diverticulitis. Timing/Duration: today Activities at Onset: none Quality: aching Abdominal Pain Onset Location: LLQ Pain Radiation: no radiation Severity of Pain-Max: moderate Severity of Pain-Current: moderate Modifying Factors: Improves With: other (levaquin) Associated Symptoms: nausea, vomiting, No diarrhea Previous symptoms: same symptoms as today, recently seen, recent hospitalization , recently treated Allergies/Adverse Reactions: No Known Drug Allergies Allergy (Unverified 05/29/18 12:51) Home Medications: Aspirin EC 81 mg [Ecotrin 81 mg] 81 mg PO DAILY 05/29/18 [History] Calcium Carb, Citrate/Vit D3 [Calcium + D3 ER Tablet] 1 each PO DAILY 05/29/18 [ History] Doxazosin Mesylate 1 mg PO DAILY 05/29/18 [History] Gabapentin 300 mg PO HS 05/29/18 [History] L.acidoph,Paracasei, B.lactis [Probiotic] 1 each PO DAILY 05/29/18 [History] Lactulose [Enulose] 15 gm PO BID 05/29/18 [History] Metronidazole 500 mg [Flagyl 500 MG] 500 mg PO Q8H 05/29/18 [History] Polyethylene Glycol 3350 17 gm [Miralax Powder 17GM PACKET] 17 gm PO DAILY [History] Ranitidine HCl 300 mg PO DAILY 05/29/18 [History] Solifenacin Succinate [Vesicare] 5 mg PO 3XW 05/29/18 [History] Spironolactone 25 mg [Aldactone 25 MG] 25 mg PO DAILY 05/29/18 [History] Hx Influenza Vaccination/Date Given: No Immunizations Up to Date: Yes - Review of Systems Constitutional: No Fever, No Chills Eyes: No Symptoms Ears, Nose, & Throat: No Symptoms Respiratory: No Cough, No Dyspnea Cardiac: No Chest Pain, No Edema, No Syncope Abdominal/Gastrointestinal: Abdominal Pain, Nausea, Vomiting, No Diarrhea Genitourinary Symptoms: No Dysuria Musculoskeletal: No Back Pain, No Neck Pain Skin: No Rash Neurological: No Dizziness, No Focal Weakness, No Sensory Changes Psychological: No Symptoms Endocrine: No Symptoms Hematologic/Lymphatic: No Symptoms Immunological/Allergic: No Symptoms All Other Systems: Reviewed and Negative - Past Medical History Pertinent Past Medical History: Yes Neurological History: No Pertinent History ENT History: No Pertinent History Cardiac History: No Pertinent History Respiratory History: No Pertinent History Endocrine Medical History: No Pertinent History Musculoskeletal History: Arthritis, Degenerative Disk Disease GI Medical History: Diverticulitis, Diverticulosis History: No Pertinent History Psycho-Social History: No Pertinent History Female Reproductive Disorders: No Pertinent History - Past Surgical History Past Surgical History: Yes Gastrointestinal: Appendectomy Musculoskeletal: Orthopedic Surgery Female Surgical History: Hysterectomy Other Surgical History: back surgery, bilateral ankle surgeries. left knee surgery. rhinoplasty. - Social History Smoking Status: Never smoker Exposure to second hand smoke: No Drug Use: none Patient Lives Alone: No - Female History Hx Now: No - Nursing Vital Signs Nursing Vital Signs: Initial Vital Signs Pulse Rate 131 H 06/27/18 20:00 Respiratory Rate 18 06/27/18 20:00 Blood Pressure 143/102 06/27/18 20:00 O2 Sat by Pulse Oximetry 96 06/27/18 20:00 Pain Scale Pain Intensity 4 - Physical Exam General Appearance: no apparent distress, alert Eye Exam: PERRL/EOMI, eyes nml inspection Ears, Nose, Throat Exam: normal ENT inspection, pharynx normal, moist mucous membranes Neck Exam: normal inspection, non-tender, supple, full range of motion Respiratory Exam: normal breath sounds, lungs clear, No respiratory distress Cardiovascular Exam: normal heart sounds, tachycardia Gastrointestinal/Abdomen Exam: tenderness (LLQ) Pelvic Exam: not done Rectal Exam: not done Back Exam: normal inspection, normal range of motion, No CVA tenderness, No vertebral tenderness Extremity Exam: normal inspection, normal range of motion, pelvis stable Neurologic Exam: alert, oriented x 3, cooperative, normal mood/affect, nml cerebellar function, sensation nml, No motor deficits Skin Exam: normal color, warm, dry SpO2 Interpretation: normal SpO2: 96 O2 Delivery: Room Air - CT Exams Abdomen/Pelvis CT Interpretation: Tele-radiologist Report (per Dr Chacon), diverticulitis, Other ( sigmoid mass cannot be excluded. ) Ordered Tests: Active Orders 24 hr Category Date Time Status IV Insertion STAT Care 06/27/18 20:12 Active Oxygen-ED Only Nasal Cannula 2 lpm Care 06/27/18 21:25 Active ABDOMEN AND PELVIS W/0 CONTRAS [CT] Stat Exams 06/27/18 20:36 Taken AMYLASE Stat Lab 06/27/18 20:00 Completed CBC W DIFF Stat Lab 06/27/18 20:00 Completed CMP Stat Lab 06/27/18 20:00 Completed LIPASE Stat Lab 06/27/18 20:00 Completed Lactic Acid Stat Lab 06/27/18 20:35 Results Manual Differential NC Stat Lab 06/27/18 20:00 Completed UA W/RFX UR CULTURE Stat Lab 06/27/18 20:52 Completed Medication Summary Discontinued Medications Generic Name Dose Route Start Last Admin Trade Name Freq PRN Reason Stop Dose Admin Sodium Chloride 1,000 mls @ 999 mls/hr 06/27/18 20:35 06/27/18 21:46 Sodium Chloride 0.9% 1000 Ml IV 06/27/18 21:35 Infused .Q1H1M STA Infusion Sodium Chloride Confirm 06/27/18 20:39 Sodium Chloride 0.9% 1000 Ml Administered 06/27/18 20:40 Dose 1,000 mls @ ud .ROUTE .STK-MED ONE Morphine Sulfate 4 mg 06/27/18 20:35 06/27/18 20:44 Morphine Sulfate 4 Mg Inj IV 06/27/18 20:36 4 mg STAT ONE Administration Morphine Sulfate Confirm 06/27/18 20:39 Morphine Sulfate 4 Mg Inj Administered 06/27/18 20:40 Dose 4 mg .ROUTE .STK-MED ONE Ondansetron HCl 4 mg 06/27/18 20:35 06/27/18 20:44 Zofran 4 Mg/2 Ml Vial IV 06/27/18 20:36 4 mg STAT ONE Administration Ondansetron HCl Confirm 06/27/18 20:39 Zofran 4 Mg/2 Ml Vial Administered 06/27/18 20:40 Dose 4 mg .ROUTE .STK-MED ONE Lab/Rad Data: Laboratory Result Diagrams 06/27/18 20:00 06/27/18 20:00 Laboratory Results 06/27/18 06/27/18 06/27/18 Range/Units 20:52 20:35 20:00 WBC (4.0-10.5) K/mm3 RBC (4.1-5.4) M/mm3 Hgb (12.0-16.0) gm/dl Hct (35-47) % MCV (78-100) fl MCH (26-32) pg MCHC (32-36) g/dl RDW (11.5-14.0) % Plt Count (150-450) K/mm3 MPV (6-9.5) fl Absolute Granulocytes (1.4-6.9) Sodium 137 (137-145) mmol/L Potassium 4.3 (3.5-5.1) mmol/L Chloride 101 (98-107) mmol/L Carbon Dioxide 22 (22-30) mmol/L Anion Gap 17.6 H (5-15) MEQ/L BUN 25 H (7-17) mg/dL Creatinine 1.10 H (0.52-1.04) mg/dL Estimated GFR 51.1 ML/MIN Glucose 125 H (74-106) mg/dL Lactic Acid 2.1 H (0.4-2.0) Calcium 10.4 H (8.4-10.2) mg/dL Total Bilirubin 1.30 (0.2-1.3) mg/dL AST 15 (14-36) U/L ALT 14 (0-35) U/L Alkaline Phosphatase 222 H (38-126) U/L Serum Total Protein 7.6 (6.3-8.2) g/dL Albumin 4.0 (3.5-5.0) g/dL Amylase 50 (30-110) U/L Lipase 105 (23-300) U/L Urine Color JEAN (YELLOW) Urine Appearance SLIGHTLY CLOUDY (CLEAR) Urine pH 5.0 (5-6) Ur Specific [place] 1.036 (1.005-1.025) Urine Protein 100 (Negative) Urine Ketones TRACE (NEGATIVE) Urine Blood NEGATIVE (0-5) Danilo/ul Urine Nitrite NEGATIVE (NEGATIVE) Urine Bilirubin SMALL (NEGATIVE) Urine Urobilinogen 2 (0-1) mg/dL Ur Leukocyte Esterase NEGATIVE (NEGATIVE) Urine WBC (Auto) 3-5 (0-5) /HPF Urine RBC (Auto) 3-5 (0-2) /HPF U Epithel Cells (Auto) NONE (FEW) /HPF Urine Bacteria (Auto) NONE (NEGATIVE) /HPF Urine Culture Reflexed NO (NO) Urine Glucose NEGATIVE (NEGATIVE) mg/dL 06/27/18 Range/Units 20:00 WBC 8.4 (4.0-10.5) K/mm3 RBC 3.67 L (4.1-5.4) M/mm3 Hgb 10.9 L (12.0-16.0) gm/dl Hct 34.7 L (35-47) % MCV 94.6 (78-100) fl MCH 29.7 (26-32) pg MCHC 31.4 L (32-36) g/dl RDW 13.4 (11.5-14.0) % Plt Count 340 (150-450) K/mm3 MPV 9.9 H (6-9.5) fl Absolute Granulocytes 6.17 (1.4-6.9) Sodium (137-145) mmol/L Potassium (3.5-5.1) mmol/L Chloride (98-107) mmol/L Carbon Dioxide (22-30) mmol/L Anion Gap (5-15) MEQ/L BUN (7-17) mg/dL Creatinine (0.52-1.04) mg/dL Estimated GFR ML/MIN Glucose (74-106) mg/dL Lactic Acid (0.4-2.0) Calcium (8.4-10.2) mg/dL Total Bilirubin (0.2-1.3) mg/dL AST (14-36) U/L ALT (0-35) U/L Alkaline Phosphatase (38-126) U/L Serum Total Protein (6.3-8.2) g/dL Albumin (3.5-5.0) g/dL Amylase (30-110) U/L Lipase (23-300) U/L Urine Color (YELLOW) Urine Appearance (CLEAR) Urine pH (5-6) Ur Specific [place] (1.005-1.025) Urine Protein (Negative) Urine Ketones (NEGATIVE) Urine Blood (0-5) Danilo/ul Urine Nitrite (NEGATIVE) Urine Bilirubin (NEGATIVE) Urine Urobilinogen (0-1) mg/dL Ur Leukocyte Esterase (NEGATIVE) Urine WBC (Auto) (0-5) /HPF Urine RBC (Auto) (0-2) /HPF U Epithel Cells (Auto) (FEW) /HPF Urine Bacteria (Auto) (NEGATIVE) /HPF Urine Culture Reflexed (NO) Urine Glucose (NEGATIVE) mg/dL - Progress Progress: improved Progress Note: 06/27/18 21:25 A neighbor of the patient arrives. She confronts me stating that she wants to patient admitted. She states that the Patient has an IV so therefore she can be admitted. She states that she can be admitted for 72 hours. I politely told her that I just started the examination. I told her I would be back and talked with her when I have more information. Discussed with : Pradeep Will see patient in: hospital (full admit) Counseled pt/family regarding: lab results, diagnosis, rad results - Departure Time of Disposition: 22:32 Departure Disposition: In-patient Admission (pe Dr Escalante) Clinical Impression: Diverticulitis large intestine Condition: Stable Critical Care Time: No Referrals: GUILLAUME ESCALANTE MD [Primary Care Provider] -
[2018-06-27] MEDS ORDERED: Sodium Chloride 0.9% 1000 ML 1,000 ML IV STA (20:35)
[2018-06-27] MEDS ORDERED: MORPHINE SULFATE 4 MG INJ IV ONE (20:35)
[2018-06-27] MEDS ORDERED: Zofran 4 MG/2 ML VIAL IV ONE (20:35)
[2018-06-27] MEDS ORDERED: Sodium Chloride 0.9% 1000 ML 1,000 ML ONE (20:39)
[2018-06-27] MEDS ORDERED: MORPHINE SULFATE 4 MG INJ ONE (20:39)
[2018-06-27] MEDS ORDERED: Zofran 4 MG/2 ML VIAL ONE (20:39)
[2018-06-27 20:43] LABS: Lactic Acid 2.1 (0.4-2.0)
[2018-06-27 20:46] LABS: ANION GAP 17.6 MEQ/L (5-15); BILIRUBIN,TOTAL 1.3 mg/dL (0.2-1.3); Calcium 10.4 mg/dL (8.4-10.2); Creatinine 1 1.1 mg/dL (0.52-1.04); Potassium 4.3 mmol/L (3.5-5.1); Total Protein 7.6 g/dL (6.3-8.2)
[2018-06-27 20:51] LABS: Hematocrit 34.7 % (35-47); Hemoglobin 10.9 gm/dl (12.0-16.0); Mean Cell Volume 94.6 fl (78-100); Mean Corpuscular Hemoglobin 29.7 pg (26-32); Mean Corpuscular Hgb Concent. 31.4 g/dl (32-36); Mean Platelet Volume 9.9 fl (6-9.5); Platelet Count 340 K/mm3 (150-450); Red Blood Count 3.67 M/mm3 (4.1-5.4); Red Cell Distribution Width 13.4 % (11.5-14.0); White Blood Count 8.4 K/mm3 (4.0-10.5)
[2018-06-27 21:09] LABS: Appearance SLIGHTLY CLOUDY (CLEAR); Bilirubin SMALL (NEGATIVE); Blood NEGATIVE Ery/ul (0-5); Glucose NEGATIVE (NEGATIVE); Ketones TRACE (NEGATIVE); Leukocyte Esterase NEGATIVE (NEGATIVE); Nitrite NEGATIVE (NEGATIVE); Protein,Urine Dip 100 (Negative); Specific Gravity 1.036 (1.005-1.025); Urobilinogen 2 mg/dL (0-1)
[2018-06-27] MEDS ORDERED: ROCEPHIN 1 Gm-D5w 50 ml Bag** 1 G/50 ML IVPB IV STA (22:32)
[2018-06-27] MEDS ORDERED: ROCEPHIN 1 Gm-D5w 50 ml Bag** 0 G/0 ML IVPB IV ONE (22:33)
[2018-06-27] MEDS ORDERED: LEVOFLOXACIN 750MG/150ML D5W 750 MG/150 ML BAG IV STA (22:40)
[2018-06-27] MEDS ORDERED: LEVOFLOXACIN 750MG/150ML D5W 750 MG/150 ML BAG IV ONE (22:42)
[2018-06-27] MEDS ORDERED: TYLENOL 325 MG PO PRN (23:16)
[2018-06-27] MEDS ORDERED: MORPHINE SULFATE 4 MG INJ IV PRN (23:16)
[2018-06-28 00:52] LABS: BAND 6 % (0.0-2.0); Eosinophil 2 % (0.00-3.0); Lymphocytes 12 % (24-44); Monocyte 17 % (0.0-12.0); Neutrophils 63 % (36.0-66.0); Platelet Estimate NORMAL (NORMAL); Total Cells Counted 100
[2018-06-28] MEDS: FLAGYL 500 MG IVPB 500 MG/100 ML BAG IV SCH ×5 (00:56→23:09)
[2018-06-28] MEDS: Sodium Chloride 0.9% 1000 ML 1,000 ML IV SCH ×3 (00:57→22:02)
[2018-06-28 05:54] LABS: Hematocrit 29.6 % (35-47); Hemoglobin 9.1 gm/dl (12.0-16.0); Mean Cell Volume 95.5 fl (78-100); Mean Corpuscular Hgb Concent. 30.7 g/dl (32-36); Mean Platelet Volume 9.1 fl (6-9.5); Platelet Count 309 K/mm3 (150-450); Red Cell Distribution Width 13.3 % (11.5-14.0)
[2018-06-28 05:55] LABS: Mean Corpuscular Hemoglobin 29.3 pg (26-32)
[2018-06-28 06:16] LABS: ANION GAP 14.8 MEQ/L (5-15); BLOOD UREA NITROGEN 18 mg/dL (7-17); CHLORIDE 103 mmol/L (98-107); Calcium 9.3 mg/dL (8.4-10.2); Carbon Dioxide 23 mmol/L (22-30); Creatinine 1 0.87 mg/dL (0.52-1.04); Glucose 96 mg/dL (74-106); Potassium 4.2 mmol/L (3.5-5.1); SODIUM 136 mmol/L (137-145)
[2018-06-28 07:04] LABS: BAND 8 % (0.0-2.0); Basophil 1 % (0.0-1.0); Lymphocytes 15 % (24-44); Monocyte 15 % (0.0-12.0); Neutrophils 61 % (36.0-66.0); Total Cells Counted 100
[2018-06-28 07:05] LABS: Platelet Estimate NORMAL (NORMAL)
--- NOTE | 2018-06-28 09:10 | XRAY ---
Indication: Lower abdominal pain. Emesis. History diverticulitis. Multiple contiguous axial images obtained through the abdomen and pelvis without contrast as ordered. Comparison: May 29, 2018. Lung bases again demonstrates scattered fibrosis/scarring. No infiltrate or effusion. Heart is not enlarged. Stable moderate-sized hiatal hernia with partial intrathoracic stomach. Noncontrasted stomach and bowel loops appear nonobstructed. Stable small descending duodenal diverticulum. Again previous reported appendectomy and hysterectomy. Sigmoid colon again demonstrates diverticulosis with wall thickening and stranding favoring diverticulitis. Small free fluid but no walled off fluid collection or free air. Sigmoid mass not completely excluded. Stable pelvic macrocalcifications. Elsewhere stable hepatic cysts and nonobstructing bilateral renal micro-calculus. Remaining liver, gallbladder, pancreas, spleen, adrenal glands, kidneys, ureters, and bladder appear unremarkable for noncontrast exam. Again scattered aortoiliac calcifications without AAA. Bone windows again demonstrates moderate multilevel degenerative spondylosis, grade 1-2 L4 spondylolisthesis, and posterior L4-L5 spinous process fixation hardware. Impression: 1. Again abnormal sigmoid colon as detailed favoring diverticulitis with tiny free fluid. Underlying mass not completely excluded. 2. Stable hiatal hernia, duodenal diverticulum, hepatic cysts, nonobstructing bilateral renal micro-calculus, pelvic macrocalcifications, multilevel degenerative spondylosis, and L4 spondylolisthesis. CTDI 23.31
--- NOTE | 2018-06-28 09:56 | PCM.HP ---
History of Present Illness - Chief Complaint Chief Complaint: diverticulitis History of Present Illness: is a 77 year old female who presented to the ER with recurrent LLQ pain, had diverticulitis last month, symptoms returned and was seen at [facility] but pain worsened and has had nausea and vomiting. - Review of Systems Constitutional: No Fever, No Chills Abdominal/Gastrointestinal: Abdominal Pain, Nausea, Vomiting Genitourinary Symptoms: No Dysuria Skin: No Rash All Other Systems: Reviewed and Negative Medications & Allergies Home Medications: Home Medication List Aspirin EC 81 mg [Ecotrin 81 mg] 81 mg PO DAILY 05/29/18 [History Confirmed 06/27/18] Calcium Carb, Citrate/Vit D3 [Calcium + D3 ER Tablet] 1 each PO DAILY 05/29/18 [ History Confirmed 06/27/18] Doxazosin Mesylate 1 mg PO DAILY 05/29/18 [History Confirmed 06/27/18] Gabapentin 300 mg PO HS 05/29/18 [History Confirmed 06/27/18] L.acidoph,Paracasei, B.lactis [Probiotic] 1 each PO DAILY 05/29/18 [History Confirmed 06/27/18] Lactulose [Enulose] 15 gm PO BID 05/29/18 [History Confirmed 06/27/18] Metronidazole 500 mg [Flagyl 500 MG] 500 mg PO Q8H 05/29/18 [History Confirmed 06/27/18] Polyethylene Glycol 3350 17 gm [Miralax Powder 17GM PACKET] 17 gm PO DAILY [History Confirmed 06/27/18] Ranitidine HCl 300 mg PO DAILY 05/29/18 [History Confirmed 06/27/18] Solifenacin Succinate [Vesicare] 5 mg PO 3XW 05/29/18 [History Confirmed ] Spironolactone 25 mg [Aldactone 25 MG] 25 mg PO DAILY 05/29/18 [History Confirmed 06/27/18] Docusate Sodium 100 mg [Colace 100 MG] 100 mg PO BID PRN #30 capsule 06/02 [Rx Confirmed 06/27/18] Levofloxacin [Levaquin] 250 mg PO DAILY #5 tablet 06/02/18 [Rx Confirmed ] Allergies/Adverse Reactions: Allergies Allergy/AdvReac Type Severity Reaction Status Date / Time No Known Drug Allergies Allergy Unverified 05/29/18 12:51 - Past Medical History Past Medical History: Yes Neurological History: No Pertinent History, TIA ENT History: No Pertinent History, Cataracts Cardiac History: High Cholesterol, Hypertension Respiratory History: No Pertinent History Endocrine Medical History: No Pertinent History Musculoskelatal History: Arthritis, Degenerative Disk Disease GI Medical History: Diverticulitis, Diverticulosis History: No Pertinent History Pyscho-Social History: No Pertinent History Reproductive Disorders: No Pertinent History Comment: skin cancer face - Female History Are you now?: No - Past Surgical History Past Surgical History: Yes Neuro Surgical History: No Pertinent History Cardiac History: No Pertinent History Respiratory Surgery: No Pertinent History GI Surgical History: Appendectomy Genitourinary Surgical Hx: No Pertinent History Musculskeletal Surgical Hx: Orthopedic Surgery Female Surgical History: Hysterectomy Other Surgical History: back surgery, bilateral ankle surgeries. left knee surgery. rhinoplasty. - Social History Smoking Status: Never smoker Exposure to second hand smoke: No Alcohol: None Drug Use: none - Physical Exam Vital Signs: Vital Signs - 24 hr Temp Pulse Resp BP Pulse Ox 06/28/18 08:04 112 H 18 92 L 06/28/18 07:20 98.8 F 108 H 18 123/67 94 L 06/28/18 03:53 99.3 F 108 H 22 134/68 96 06/28/18 00:00 99.6 F 111 H 21 134/72 96 06/27/18 23:58 99.6 F 111 H 22 134/72 96 06/27/18 23:46 96 06/27/18 22:44 96 06/27/18 22:11 116 H 16 125/76 96 06/27/18 21:24 108 H 16 145/77 97 06/27/18 20:47 116 H 18 149/82 95 06/27/18 20:00 131 H 18 143/102 96 Oxygen-Last 24 hours O2 Percentage 2 Liters = 28% O2 Percentage 2 Liters = 28% General Appearance: no apparent distress, alert, obese Respiratory Exam: normal breath sounds, lungs clear, No respiratory distress Cardiovascular Exam: regular rate/rhythm, normal heart sounds, normal peripheral pulses Gastrointestinal/Abdomen Exam: soft, normal bowel sounds, tenderness (mild LLQ) , No mass Extremity Exam: normal inspection, normal range of motion, pelvis stable Results - Labs Lab/Micro Results: Lab Results-Last 24 Hours 06/27/18 06/27/18 06/27/18 Range/Units 20:00 20:00 20:35 WBC 8.4 (4.0-10.5) K/mm3 RBC 3.67 L (4.1-5.4) M/mm3 Hgb 10.9 L (12.0-16.0) gm/dl Hct 34.7 L (35-47) % MCV 94.6 (78-100) fl MCH 29.7 (26-32) pg MCHC 31.4 L (32-36) g/dl RDW 13.4 (11.5-14.0) % Plt Count 340 (150-450) K/mm3 MPV 9.9 H (6-9.5) fl Absolute Granulocytes 6.17 (1.4-6.9) Segmented Neutrophils 63 (36.0-66.0) % Band Neutrophils 6 H (0.0-2.0) % Lymphocytes (Manual) 12 L (24-44) % Monocytes (Manual) 17 H (0.0-12.0) % Eosinophils (Manual) 2 (0.00-3.0) % Basophils (Manual) (0.0-1.0) % Platelet Estimate NORMAL (NORMAL) RBC Morphology NORMAL Sodium 137 (137-145) mmol/L Potassium 4.3 (3.5-5.1) mmol/L Chloride 101 (98-107) mmol/L Carbon Dioxide 22 (22-30) mmol/L Anion Gap 17.6 H (5-15) MEQ/L BUN 25 H (7-17) mg/dL Creatinine 1.10 H (0.52-1.04) mg/dL Estimated GFR 51.1 ML/MIN Glucose 125 H (74-106) mg/dL Lactic Acid 2.1 H (0.4-2.0) Calcium 10.4 H (8.4-10.2) mg/dL Total Bilirubin 1.30 (0.2-1.3) mg/dL AST 15 (14-36) U/L ALT 14 (0-35) U/L Alkaline Phosphatase 222 H (38-126) U/L Serum Total Protein 7.6 (6.3-8.2) g/dL Albumin 4.0 (3.5-5.0) g/dL Amylase 50 (30-110) U/L Lipase 105 (23-300) U/L Urine Color (YELLOW) Urine Appearance (CLEAR) Urine pH (5-6) Ur Specific [place] (1.005-1.025) Urine Protein (Negative) Urine Ketones (NEGATIVE) Urine Blood (0-5) Danilo/ul Urine Nitrite (NEGATIVE) Urine Bilirubin (NEGATIVE) Urine Urobilinogen (0-1) mg/dL Ur Leukocyte Esterase (NEGATIVE) Urine WBC (Auto) (0-5) /HPF Urine RBC (Auto) (0-2) /HPF U Epithel Cells (Auto) (FEW) /HPF Urine Bacteria (Auto) (NEGATIVE) /HPF Urine Culture Reflexed (NO) Urine Glucose (NEGATIVE) mg/dL 06/27/18 06/27/18 06/28/18 Range/Units 20:52 22:51 05:20 WBC 8.0 (4.0-10.5) K/mm3 RBC 3.10 L (4.1-5.4) M/mm3 Hgb 9.1 L (12.0-16.0) gm/dl Hct 29.6 L (35-47) % MCV 95.5 (78-100) fl MCH 29.3 (26-32) pg MCHC 30.7 L (32-36) g/dl RDW 13.3 (11.5-14.0) % Plt Count 309 (150-450) K/mm3 MPV 9.1 (6-9.5) fl Absolute Granulocytes 5.39 (1.4-6.9) Segmented Neutrophils 61 (36.0-66.0) % Band Neutrophils 8 H (0.0-2.0) % Lymphocytes (Manual) 15 L (24-44) % Monocytes (Manual) 15 H (0.0-12.0) % Eosinophils (Manual) (0.00-3.0) % Basophils (Manual) 1 (0.0-1.0) % Platelet Estimate NORMAL (NORMAL) RBC Morphology NORMAL Sodium (137-145) mmol/L Potassium (3.5-5.1) mmol/L Chloride (98-107) mmol/L Carbon Dioxide (22-30) mmol/L Anion Gap (5-15) MEQ/L BUN (7-17) mg/dL Creatinine (0.52-1.04) mg/dL Estimated GFR ML/MIN Glucose (74-106) mg/dL Lactic Acid 0.6 (0.4-2.0) Calcium (8.4-10.2) mg/dL Total Bilirubin (0.2-1.3) mg/dL AST (14-36) U/L ALT (0-35) U/L Alkaline Phosphatase (38-126) U/L Serum Total Protein (6.3-8.2) g/dL Albumin (3.5-5.0) g/dL Amylase (30-110) U/L Lipase (23-300) U/L Urine Color JEAN (YELLOW) Urine Appearance SLIGHTLY CLOUDY (CLEAR) Urine pH 5.0 (5-6) Ur Specific [place] 1.036 (1.005-1.025) Urine Protein 100 (Negative) Urine Ketones TRACE (NEGATIVE) Urine Blood NEGATIVE (0-5) Danilo/ul Urine Nitrite NEGATIVE (NEGATIVE) Urine Bilirubin SMALL (NEGATIVE) Urine Urobilinogen 2 (0-1) mg/dL Ur Leukocyte Esterase NEGATIVE (NEGATIVE) Urine WBC (Auto) 3-5 (0-5) /HPF Urine RBC (Auto) 3-5 (0-2) /HPF U Epithel Cells (Auto) NONE (FEW) /HPF Urine Bacteria (Auto) NONE (NEGATIVE) /HPF Urine Culture Reflexed NO (NO) Urine Glucose NEGATIVE (NEGATIVE) mg/dL 06/28/18 Range/Units 05:20 WBC (4.0-10.5) K/mm3 RBC (4.1-5.4) M/mm3 Hgb (12.0-16.0) gm/dl Hct (35-47) % MCV (78-100) fl MCH (26-32) pg MCHC (32-36) g/dl RDW (11.5-14.0) % Plt Count (150-450) K/mm3 MPV (6-9.5) fl Absolute Granulocytes (1.4-6.9) Segmented Neutrophils (36.0-66.0) % Band Neutrophils (0.0-2.0) % Lymphocytes (Manual) (24-44) % Monocytes (Manual) (0.0-12.0) % Eosinophils (Manual) (0.00-3.0) % Basophils (Manual) (0.0-1.0) % Platelet Estimate (NORMAL) RBC Morphology Sodium 136 L (137-145) mmol/L Potassium 4.2 (3.5-5.1) mmol/L Chloride 103 (98-107) mmol/L Carbon Dioxide 23 (22-30) mmol/L Anion Gap 14.8 (5-15) MEQ/L BUN 18 H (7-17) mg/dL Creatinine 0.87 (0.52-1.04) mg/dL Estimated GFR > 60.0 ML/MIN Glucose 96 (74-106) mg/dL Lactic Acid (0.4-2.0) Calcium 9.3 (8.4-10.2) mg/dL Total Bilirubin (0.2-1.3) mg/dL AST (14-36) U/L ALT (0-35) U/L Alkaline Phosphatase (38-126) U/L Serum Total Protein (6.3-8.2) g/dL Albumin (3.5-5.0) g/dL Amylase (30-110) U/L Lipase (23-300) U/L Urine Color (YELLOW) Urine Appearance (CLEAR) Urine pH (5-6) Ur Specific [place] (1.005-1.025) Urine Protein (Negative) Urine Ketones (NEGATIVE) Urine Blood (0-5) Danilo/ul Urine Nitrite (NEGATIVE) Urine Bilirubin (NEGATIVE) Urine Urobilinogen (0-1) mg/dL Ur Leukocyte Esterase (NEGATIVE) Urine WBC (Auto) (0-5) /HPF Urine RBC (Auto) (0-2) /HPF U Epithel Cells (Auto) (FEW) /HPF Urine Bacteria (Auto) (NEGATIVE) /HPF Urine Culture Reflexed (NO) Urine Glucose (NEGATIVE) mg/dL - Radiology Impressions Radiology Exams & Impressions: Radiology Procedures Category Date Time Status ABDOMEN AND PELVIS W/0 CONTRAS [CT] Stat Exams 06/27/18 20:36 Completed - Other Procedures and Tests Respiratory Therapy 06/27/18 23:16 Oxygen Nasal Cannula 2 lpm 06/27/18 23:45 Respiratory Therapy Assessment DAILY Assessment/Plan (1) Diverticulitis large intestine Current Visit: Yes Status: Acute Assessment & Plan: recurrent, failed outpatient therapy. discussed will treat and will need colonoscopy when resolved to r/o mass or underlying pathology. continue levaquin and flagyl at this time. Code(s): K57.32 - DVTRCLI OF LG INT W/O PERFORATION OR ABSCESS W/O BLEEDING (2) Abdominal pain Current Visit: No Status: Acute Onset Date: ~05/29/18 Code(s): R10.9 - UNSPECIFIED ABDOMINAL PAIN
[2018-06-28] MEDS: Zofran 4 MG/2 ML VIAL IV PRN ×2 (10:13→23:09)
[2018-06-28] MEDS ORDERED: Colace 100 MG PO PRN (11:18)
[2018-06-28] MEDS: Aldactone 25 MG PO SCH (11:33)
[2018-06-28] MEDS: CARDURA 2 MG PO SCH (11:33)
[2018-06-28] MEDS: Miralax Powder 17GM PACKET PO SCH (11:41)
[2018-06-28] MEDS: LACTULOSE 20 GM/30ML UD CUP PO SCH ×2 (11:41→22:00)
[2018-06-28] MEDS: Pepcid 20 MG PO SCH (11:43)
[2018-06-28] MEDS ORDERED: LEVOFLOXACIN 750MG/150ML D5W 750 MG/150 ML BAG IV SCH (22:00)
[2018-06-28] MEDS ORDERED: Enulose 10 GM/15 ML PO SCH (22:00)
[2018-06-28] MEDS ORDERED: NEURONTIN 300 MG PO SCH (22:00)
[2018-06-29] MEDS: FLAGYL 500 MG IVPB 500 MG/100 ML BAG IV SCH (06:17)
[2018-06-29 06:19] LABS: Hematocrit 30.8 % (35-47); Hemoglobin 9.5 gm/dl (12.0-16.0); Mean Cell Volume 95.4 fl (78-100); Mean Corpuscular Hemoglobin 29.4 pg (26-32); Mean Corpuscular Hgb Concent. 30.8 g/dl (32-36); Mean Platelet Volume 9.3 fl (6-9.5); Platelet Count 348 K/mm3 (150-450); Red Blood Count 3.23 M/mm3 (4.1-5.4); Red Cell Distribution Width 13.6 % (11.5-14.0); White Blood Count 9.1 K/mm3 (4.0-10.5)
[2018-06-29 06:40] LABS: ALBUMIN 3.4 g/dL (3.5-5.0); ALKALINE PHOSPHATASE 185 U/L (38-126); ANION GAP 14.6 MEQ/L (5-15); BLOOD UREA NITROGEN 13 mg/dL (7-17); CHLORIDE 102 mmol/L (98-107); Carbon Dioxide 23 mmol/L (22-30); Creatinine 1 0.83 mg/dL (0.52-1.04); Glucose 107 mg/dL (74-106); Potassium 3.6 mmol/L (3.5-5.1); SGOT/AST 12 U/L (14-36); SGPT/ALT 11 U/L (0-35); SODIUM 136 mmol/L (137-145); Total Protein 6.7 g/dL (6.3-8.2)
[2018-06-29] MEDS: Aldactone 25 MG PO SCH (09:49)
[2018-06-29] MEDS: Miralax Powder 17GM PACKET PO SCH (09:50)
[2018-06-29] MEDS: CARDURA 2 MG PO SCH (09:50)
[2018-06-29] MEDS: LACTULOSE 20 GM/30ML UD CUP PO SCH (09:50)
[2018-06-29] MEDS: Pepcid 20 MG PO SCH (09:51)
--- NOTE | 2018-06-29 09:56 | PCM.DS ---
Discharge Summary Date of Admission: 06/27/18 23:13 Admitting Physician: GUILLAUME ESCALANTE Primary Care Provider: GUILLAUME ESCALANTE Allergies Allergies No Known Drug Allergies Allergy (Unverified 05/29/18 12:51) Hospital Summary - Hospital Course Hospital Course: patient was admitted with recurrent diverticulitis, LLQ pain and nausea/ vomiting. she is tolerating regular diet and pain has resolved. she feels well at the time of discharge. - Vitals & Intake/Output Vital Signs: Vital Signs Temperature 98.2 F 06/29/18 07:08 Pulse Rate 105 H 06/29/18 08:35 Respiratory Rate 18 06/29/18 08:35 Blood Pressure 135/63 06/29/18 07:08 O2 Sat by Pulse Oximetry 93 L 06/29/18 08:35 Oxygen-Last Documented O2 Percentage 2 Liters = 28% Intake & Output: Intake & Output 06/26/18 06/27/18 06/28/18 06/29/18 11:59 11:59 11:59 11:59 Intake Total 545 3572 Output Total 1050 1050 Balance -505 2522 Weight 91.6 kg - Lab Result Diagrams: 06/29/18 05:35 06/29/18 05:35 Lab Results-Last 24 Hrs: Lab Results-Last 24 Hours 06/29/18 06/29/18 Range/Units 05:35 05:35 WBC 9.1 (4.0-10.5) K/mm3 RBC 3.23 L (4.1-5.4) M/mm3 Hgb 9.5 L (12.0-16.0) gm/dl Hct 30.8 L (35-47) % MCV 95.4 (78-100) fl MCH 29.4 (26-32) pg MCHC 30.8 L (32-36) g/dl RDW 13.6 (11.5-14.0) % Plt Count 348 (150-450) K/mm3 MPV 9.3 (6-9.5) fl Sodium 136 L (137-145) mmol/L Potassium 3.6 (3.5-5.1) mmol/L Chloride 102 (98-107) mmol/L Carbon Dioxide 23 (22-30) mmol/L Anion Gap 14.6 (5-15) MEQ/L BUN 13 (7-17) mg/dL Creatinine 0.83 (0.52-1.04) mg/dL Estimated GFR > 60.0 ML/MIN Glucose 107 H (74-106) mg/dL Calcium 9.0 (8.4-10.2) mg/dL Total Bilirubin 1.00 (0.2-1.3) mg/dL AST 12 L (14-36) U/L ALT 11 (0-35) U/L Alkaline Phosphatase 185 H (38-126) U/L Serum Total Protein 6.7 (6.3-8.2) g/dL Albumin 3.4 L (3.5-5.0) g/dL - Radiology Exams Ordered Rad Exams-Entire Visit: Radiology Procedures Category Date Time Status ABDOMEN AND PELVIS W/0 CONTRAS [CT] Stat Exams 06/27/18 20:36 Completed - Procedures and Test Procedures and Tests throughout Hospitalization: Therapy Orders & Screens 06/27/18 23:16 Oxygen Nasal Cannula 2 lpm Comment: 06/27/18 23:45 Respiratory Therapy Assessment DAILY Comment: Diagnosis: diverticvulitis Discharge Exam General Appearance: no apparent distress, alert, obese Skin Exam: normal color, warm, dry Respiratory Exam: normal breath sounds, lungs clear, No respiratory distress Cardiovascular Exam: regular rate/rhythm, normal heart sounds Gastrointestinal/Abdomen Exam: soft, No tenderness, No mass Extremity Exam: normal inspection, normal range of motion Final Diagnosis/Problem List - Final Discharge Diagnosis/Problem (1) Diverticulitis large intestine Current Visit: Yes Status: Acute Assessment & Plan: home on po levaquin and flagyl, needs colonoscopy in 4-6 weeks as outpatient (2) Abdominal pain Current Visit: No Status: Acute Onset Date: ~05/29/18 - Discharge Disposition: Home, Self-Care Condition: Stable Prescriptions: Continue Aspirin EC 81 mg [Ecotrin 81 mg] 81 mg PO DAILY Polyethylene Glycol 3350 17 gm [Miralax Powder 17GM PACKET] 17 gm PO DAILY Spironolactone 25 mg [Aldactone 25 MG] 25 mg PO DAILY Solifenacin Succinate [Vesicare] 5 mg PO 3XW Ranitidine HCl 300 mg PO DAILY Lactulose [Enulose] 15 gm PO BID L.acidoph,Paracasei, B.lactis [Probiotic] 1 each PO DAILY Gabapentin 300 mg PO HS Doxazosin Mesylate 1 mg PO DAILY Calcium Carb, Citrate/Vit D3 [Calcium + D3 ER Tablet] 1 each PO DAILY Docusate Sodium 100 mg [Colace 100 MG] 100 mg PO BID PRN #30 capsule PRN Reason: Constipation Metronidazole 500 mg [Flagyl 500 MG] 500 mg PO Q8H #21 tablet Levofloxacin [Levaquin] 250 mg PO DAILY #7 tablet Follow up with: GUILLAUME ESCALANTE MD [Primary Care Provider] - 1 Week
[2018-06-29] MEDS ORDERED: NON-FORMULARY ITEM (Ranitidine Hcl [Ranitidine Hcl] 300 MG) PO SCH (10:00)
[2018-06-29] MEDS ORDERED: NON-FORMULARY ITEM (Doxazosin Mesylate [Doxazosin Mesylate] 1 MG) PO SCH (10:00)
[2018-06-29 10:49] LABS: BAND 3 % (0.0-2.0); Basophil 1 % (0.0-1.0); Lymphocytes 25 % (24-44); Monocyte 16 % (0.0-12.0); Neutrophils 55 % (36.0-66.0); Platelet Estimate NORMAL (NORMAL); Total Cells Counted 100
[2018-06-29 11:04] VITALS: BP 140/74; PULSE 90; O2SAT 96
[2018-06-29] MEDS ORDERED: LEVOFLOXACIN 750MG/150ML D5W 750 MG/150 ML BAG IV SCH (22:00)
== END 2018-06-29 12:45 | disposition home or self-care (01) | DRG 392 ==
LOC: ED 19:51 → MED SURG 23:13
PROVIDERS: ADMIT Family Medicine; ATTEND Family Medicine
DX: K57.32 Diverticulitis of large intestine without perforation or abscess without bleeding (principal); R42 Dizziness and giddiness; I10 Essential (primary) hypertension; R10.32 Left lower quadrant pain; R11.2 Nausea with vomiting, unspecified; Z79.899 Other long term (current) drug therapy
CPT/HCPCS: 36000; 36415; 74176; 80048; 80053; 81001; 82150; 83605; 83690; 85025; 94762; 96360; 96365; 96374; 96375; 99285; G0008; 90662; J0696; J1956; J2270; J2405; A9270-GY

== ENCOUNTER 2018-06-30 07:57 | Inpatient (IN) | payer MEDICARE, BC ==
[2018-06-30] MEDS ORDERED: Zofran 4 MG/2 ML VIAL IV ONE (08:19)
[2018-06-30] MEDS ORDERED: MORPHINE SULFATE 2 MG INJ IV ONE (08:19)
[2018-06-30] MEDS ORDERED: FLAGYL 500 MG IVPB 500 MG/100 ML BAG IV STA (08:22)
[2018-06-30] MEDS ORDERED: LEVOFLOXACIN 750MG/150ML D5W 750 MG/150 ML BAG IV ONE ×2 (08:23→09:38)
--- NOTE | 2018-06-30 08:29 | ERPHSYRPT ---
- History of Present Illness Time Seen by Provider: 06/30/18 08:00 Historian: patient, family, old records Exam Limitations: no limitations Physician History: patient presents with lower abdominal pain 8/10 since 4 pm yesterday; she was released from the hospital yesterday am after being admitted Saturday with same complaints and diagnosed with acute exacerbation of diverticulitis. She denies any fever but woke up after a nap yesterday soaked and with chills. She has no appetite and has n&V and unable to keep popcycles or water down since being home. Pain and n&V getting worse; had 6-7 loose soft BMs without blood or melena after getting home yesterday and took an Immodium. No other complaints or changes. went to pharmacy and was given rx for Flagyl - tried taking and pain, N&V worse. Didnt get rx for levoquin filled. will give IV now. Patient with past hx of colon perforation from diverticulitis per family. Timing/Duration: today (increased pain and N&V), yesterday (onset 4pm), constant (pain and nausea), intermittent (emesis) Activities at Onset: rest Quality: cramping Abdominal Pain Onset Location: RLQ, LLQ, suprapubic Pain Radiation: no radiation Severity of Pain-Max: severe (8/10) Severity of Pain-Current: severe (8/10) Modifying Factors: Improves With: eating (exacerbates), palpation, vomiting Associated Symptoms: diarrhea (multiple frequent soft loose stools when got home yesterday), fever/chills (chills), loss of appetite, nausea, vomiting Previous symptoms: same symptoms as today, recently seen, recent hospitalization , recently treated Allergies/Adverse Reactions: No Known Drug Allergies Allergy (Verified 06/30/18 08:29) Home Medications: Aspirin EC 81 mg [Ecotrin 81 mg] 81 mg PO DAILY 05/29/18 [History] Calcium Carb, Citrate/Vit D3 [Calcium + D3 ER Tablet] 1 each PO DAILY 05/29/18 [ History] Doxazosin Mesylate 1 mg PO DAILY 05/29/18 [History] Gabapentin 300 mg PO HS 05/29/18 [History] L.acidoph,Paracasei, B.lactis [Probiotic] 1 each PO DAILY 05/29/18 [History] Lactulose [Enulose] 15 gm PO BID 05/29/18 [History] Polyethylene Glycol 3350 17 gm [Miralax Powder 17GM PACKET] 17 gm PO DAILY [History] Ranitidine HCl 300 mg PO DAILY 05/29/18 [History] Solifenacin Succinate [Vesicare] 5 mg PO 3XW 05/29/18 [History] Spironolactone 25 mg [Aldactone 25 MG] 25 mg PO DAILY 05/29/18 [History] Hx Influenza Vaccination/Date Given: No - Review of Systems Constitutional: Chills, Night Sweats Eyes: No Symptoms Ears, Nose, & Throat: No Symptoms Respiratory: No Cough, No Dyspnea, No Wheezing Cardiac: No Chest Pain, No Palpitations, No Syncope Abdominal/Gastrointestinal: Abdominal Pain, Nausea, Vomiting, Diarrhea ( multiple soft loose stools), No Constipation, No Hematemesis, No Hematochezia, No Melena Genitourinary Symptoms: No Symptoms Musculoskeletal: No Symptoms Skin: No Symptoms Neurological: No Symptoms Psychological: Depression, No Alcohol Abuse, No Drug Abuse, No Suicidal Ideations, No Homicidal Ideations Endocrine: No Symptoms Hematologic/Lymphatic: No Symptoms Immunological/Allergic: No Symptoms - Past Medical History Pertinent Past Medical History: Yes Neurological History: No Pertinent History, TIA ENT History: No Pertinent History, Cataracts Cardiac History: High Cholesterol, Hypertension Respiratory History: No Pertinent History Endocrine Medical History: No Pertinent History Musculoskeletal History: Arthritis, Degenerative Disk Disease GI Medical History: Diverticulitis, Diverticulosis History: No Pertinent History Psycho-Social History: No Pertinent History Female Reproductive Disorders: No Pertinent History Other Medical History: skin cancer face - Past Surgical History Past Surgical History: Yes Neuro Surgical History: No Pertinent History Cardiac: No Pertinent History Respiratory: No Pertinent History Gastrointestinal: Appendectomy Genitourinary: No Pertinent History Musculoskeletal: Orthopedic Surgery Female Surgical History: Hysterectomy Other Surgical History: back surgery, bilateral ankle surgeries. left knee surgery. rhinoplasty. - Social History Smoking Status: Never smoker Exposure to second hand smoke: No Alcohol Use: None Drug Use: none Patient Lives Alone: No Significant Family History: no pertinent family hx - Nursing Vital Signs Nursing Vital Signs: Initial Vital Signs Temperature 100.0 F 06/30/18 08:07 Pulse Rate 102 H 06/30/18 08:07 Blood Pressure 113/60 06/30/18 08:07 O2 Sat by Pulse Oximetry 96 06/30/18 08:07 Pain Scale Pain Intensity 3 - Physical Exam General Appearance: severe distress, alert, anxiety, obese (mild) Eye Exam: PERRL/EOMI, eyes nml inspection Ears, Nose, Throat Exam: normal ENT inspection, TMs normal, pharynx normal, dry mucous membranes, No pharyngeal erythema, No tonsillar exudate Neck Exam: normal inspection, non-tender, supple, full range of motion, No meningismus, No carotid bruit, No JVD Respiratory Exam: normal breath sounds, lungs clear, airway intact, No chest tenderness, No respiratory distress, No crackles/rales, No rhonchi, No wheezing Cardiovascular Exam: regular rate/rhythm, normal heart sounds, normal peripheral pulses, tachycardia (104), capillary refill 2-3 sec, edema (trace non -pitting), No murmur Gastrointestinal/Abdomen Exam: soft, tenderness (diffuse lower abdomen), guarding (minimal active - no passive), No normal bowel sounds (deminished), No distention, No mass, No pulsatile mass, No rebound, No hernia, No organomegaly Pelvic Exam: deferred Rectal Exam: normal exam, normal rectal tone, hemorrhoids (external not bleeding ), other (small amount light brown stool; no shelf sign; no mass detected), No mass, No black stool, No blood Back Exam: normal inspection, normal range of motion, No CVA tenderness, No vertebral tenderness, No rash Extremity Exam: normal inspection, normal range of motion, pedal edema (trace non-pitting), No tammy's sign Neurologic Exam: alert, oriented x 3, cooperative, chief program officer II-XII nml as tested, sensation nml Skin Exam: normal color, warm, dry, No rash, No petechiae, No jaundice, No cyanosis Lymphatic Exam: No adenopathy SpO2 Interpretation: normal SpO2: 97 O2 Delivery: Room Air - Course Nursing assessment & vital signs reviewed: Yes - CT Exams Abdomen/Pelvis CT Interpretation: Discussed w/radiologist, Tele-radiologist Report, diverticulitis, Other (underlying sigmoid mass not excluded; no change from 06/27) Ordered Tests: Active Orders 24 hr Category Date Time Status Bedrest with BRP/BSC ROUTINE Activity 06/30/18 11:53 Ordered Call Admit Doctor for Orders ON ADMISSION Care 06/30/18 11:52 Ordered Code Status Order ROUTINE Care 06/30/18 11:51 Ordered Fall Protocol ROUTINE Care 06/30/18 11:53 Ordered IV Care Q6H Care 06/30/18 11:51 Ordered IV Insertion STAT Care 06/30/18 08:19 Active NPO (ED) STAT Care 06/30/18 08:[address] in Observation ROUTINE Care 06/30/18 11:51 Ordered Re-Check Vital Signs STAT Care 06/30/18 08:19 Active Jacky Bradshaw, Apply ROUTINE Care 06/30/18 11:51 Ordered Weight,Daily 0600 Care 06/30/18 11:51 Ordered Clear Liquid Diet 06/30/18 Dinner Ordered ABDOMEN AND PELVIS W/0 CONTRAS [CT] Stat Exams 06/30/18 08:52 Completed AMYLASE Stat Lab 06/30/18 08:52 Completed BLOOD CULTURE Stat Lab 06/30/18 08:52 Received CBC W DIFF Stat Lab 06/30/18 08:52 Completed CMP Stat Lab 06/30/18 08:52 Completed CULTURE,URINE Stat Lab 06/30/18 08:30 Received LIPASE Stat Lab 06/30/18 08:52 Completed Lactic Acid Stat Lab 06/30/18 08:33 Completed Lactic Acid Stat Lab 06/30/18 10:37 Completed Manual Differential NC Stat Lab 06/30/18 08:52 Completed Occult Blood,Stool Other Stat Lab 06/30/18 08:30 Completed UA W/RFX UR CULTURE Stat Lab 06/30/18 08:30 Completed Transfer Order Routine Transfer 06/30/18 Ordered Medication Summary Generic Name Dose Route Start Last Admin Trade Name Freq PRN Reason Stop Dose Admin Sodium Chloride 1,000 mls @ 100 mls/hr 06/30/18 08:30 06/30/18 09:46 Sodium Chloride 0.9% 1000 Ml IV 07/30/18 08:29 100 mls/hr .Q10H JHON Infusion Sodium Chloride 1,000 mls @ 250 mls/hr 06/30/18 08:43 06/30/18 10:03 Sodium Chloride 0.9% 1000 Ml IV 06/30/18 12:42 Not Given .Q4H STA Discontinued Medications Generic Name Dose Route Start Last Admin Trade Name Freq PRN Reason Stop Dose Admin Metronidazole 500 mg in 100 mls @ 200 mls/hr 06/30/18 08:22 06/30/18 09:46 Flagyl 500 Mg Ivpb IV 06/30/18 08:51 Infused STAT STA Infusion Levofloxacin/Dextrose 750 mg in 150 mls @ 100 mls/hr 06/30/18 08:23 06/30/18 09:42 Levofloxacin 750mg/150ml D5w IV 06/30/18 09:52 100 mls/hr STAT ONE Administration Metronidazole Confirm 06/30/18 08:33 Flagyl 500 Mg Ivpb Administered 06/30/18 08:34 Dose 500 mg in 100 mls @ ud IV .STK-MED ONE Levofloxacin/Dextrose Confirm 06/30/18 09:38 Levofloxacin 750mg/150ml D5w Administered 06/30/18 09:39 Dose 750 mg in 150 mls @ ud IV .STK-MED ONE Morphine Sulfate 2 mg 06/30/18 08:19 06/30/18 08:37 Morphine Sulfate 2 Mg Inj IV 06/30/18 08:20 2 mg STAT ONE Administration Morphine Sulfate Confirm 06/30/18 08:32 Morphine Sulfate 2 Mg Inj Administered 06/30/18 08:33 Dose 2 mg .ROUTE .STK-MED ONE Ondansetron HCl 4 mg 06/30/18 08:19 06/30/18 08:36 Zofran 4 Mg/2 Ml Vial IV 06/30/18 08:20 4 mg STAT ONE Administration Ondansetron HCl Confirm 06/30/18 08:32 Zofran 4 Mg/2 Ml Vial Administered 06/30/18 08:33 Dose 4 mg .ROUTE .STK-MED ONE Promethazine HCl 12.5 mg 06/30/18 10:26 06/30/18 10:32 Phenergan 25 Mg Inj IV 06/30/18 10:27 12.5 mg STAT ONE Administration Promethazine HCl Confirm 06/30/18 10:30 Phenergan 25 Mg Inj Administered 06/30/18 10:31 Dose 25 mg .ROUTE .STK-MED ONE Lab/Rad Data: Laboratory Result Diagrams 06/30/18 08:52 06/30/18 08:52 Laboratory Results 06/30/18 06/30/18 06/30/18 Range/Units 10:37 08:52 08:52 WBC 12.2 H (4.0-10.5) K/mm3 RBC 3.37 L (4.1-5.4) M/mm3 Hgb 9.9 L (12.0-16.0) gm/dl Hct 31.6 L (35-47) % MCV 93.8 (78-100) fl MCH 29.3 (26-32) pg MCHC 31.3 L (32-36) g/dl RDW 13.5 (11.5-14.0) % Plt Count 400 (150-450) K/mm3 MPV 9.0 (6-9.5) fl Segmented Neutrophils 82 H (36.0-66.0) % Band Neutrophils 3 H (0.0-2.0) % Lymphocytes (Manual) 6 L (24-44) % Monocytes (Manual) 9 (0.0-12.0) % Platelet Estimate NORMAL (NORMAL) RBC Morphology NORMAL Sodium 139 (137-145) mmol/L Potassium 3.4 L (3.5-5.1) mmol/L Chloride 104 (98-107) mmol/L Carbon Dioxide 23 (22-30) mmol/L Anion Gap 15.5 H (5-15) MEQ/L BUN 12 (7-17) mg/dL Creatinine 0.85 (0.52-1.04) mg/dL Estimated GFR > 60.0 ML/MIN Glucose 121 H (74-106) mg/dL Lactic Acid 0.9 (0.4-2.0) Calcium 9.7 (8.4-10.2) mg/dL Total Bilirubin 1.30 (0.2-1.3) mg/dL AST 13 L (14-36) U/L ALT 15 (0-35) U/L Alkaline Phosphatase 177 H (38-126) U/L Serum Total Protein 7.1 (6.3-8.2) g/dL Albumin 3.5 (3.5-5.0) g/dL Amylase 34 (30-110) U/L Lipase 45 (23-300) U/L Urine Color (YELLOW) Urine Appearance (CLEAR) Urine pH (5-6) Ur Specific [place] (1.005-1.025) Urine Protein (Negative) Urine Ketones (NEGATIVE) Urine Blood (0-5) Danilo/ul Urine Nitrite (NEGATIVE) Urine Bilirubin (NEGATIVE) Urine Urobilinogen (0-1) mg/dL Ur Leukocyte Esterase (NEGATIVE) Urine WBC (Auto) (0-5) /HPF Urine RBC (Auto) (0-2) /HPF U Epithel Cells (Auto) (FEW) /HPF Urine Bacteria (Auto) (NEGATIVE) /HPF Urine Culture Reflexed (NO) Urine Glucose (NEGATIVE) mg/dL Stool Occult Blood (Negative) 06/30/18 06/30/18 06/30/18 Range/Units 08:33 08:30 08:30 WBC (4.0-10.5) K/mm3 RBC (4.1-5.4) M/mm3 Hgb (12.0-16.0) gm/dl Hct (35-47) % MCV (78-100) fl MCH (26-32) pg MCHC (32-36) g/dl RDW (11.5-14.0) % Plt Count (150-450) K/mm3 MPV (6-9.5) fl Segmented Neutrophils (36.0-66.0) % Band Neutrophils (0.0-2.0) % Lymphocytes (Manual) (24-44) % Monocytes (Manual) (0.0-12.0) % Platelet Estimate (NORMAL) RBC Morphology Sodium (137-145) mmol/L Potassium (3.5-5.1) mmol/L Chloride (98-107) mmol/L Carbon Dioxide (22-30) mmol/L Anion Gap (5-15) MEQ/L BUN (7-17) mg/dL Creatinine (0.52-1.04) mg/dL Estimated GFR ML/MIN Glucose (74-106) mg/dL Lactic Acid 2.2 H (0.4-2.0) Calcium (8.4-10.2) mg/dL Total Bilirubin (0.2-1.3) mg/dL AST (14-36) U/L ALT (0-35) U/L Alkaline Phosphatase (38-126) U/L Serum Total Protein (6.3-8.2) g/dL Albumin (3.5-5.0) g/dL Amylase (30-110) U/L Lipase (23-300) U/L Urine Color JEAN (YELLOW) Urine Appearance CLEAR (CLEAR) Urine pH 5.0 (5-6) Ur Specific [place] 1.021 (1.005-1.025) Urine Protein 100 (Negative) Urine Ketones SMALL (NEGATIVE) Urine Blood SMALL (0-5) Danilo/ul Urine Nitrite NEGATIVE (NEGATIVE) Urine Bilirubin NEGATIVE (NEGATIVE) Urine Urobilinogen NEGATIVE (0-1) mg/dL Ur Leukocyte Esterase TRACE (NEGATIVE) Urine WBC (Auto) 16-25 (0-5) /HPF Urine RBC (Auto) 26-50 (0-2) /HPF U Epithel Cells (Auto) RARE (FEW) /HPF Urine Bacteria (Auto) FEW (NEGATIVE) /HPF Urine Culture Reflexed NO (NO) Urine Glucose NEGATIVE (NEGATIVE) mg/dL Stool Occult Blood NEGATIVE (Negative) reviewed - Progress Progress: improved (after meds), pain not gone completely, re-examined (after meds amd IV fluids) Progress Note: 06/30/18 08:39 family at bedside; patient restless and uncomfortable with N&V and lower abd pain 8/10; rectal temp 100; will get labs and cultures; start an IV and give bolus of fluid with pain meds and anti-emetics; will review recent admission and monitor and recheck 06/30/18 08:44 lactate was 2.2; fluid bolus running; will review CT with Radiologist 06/30/18 08:53 rechecked patient ; N&V resolving; pain reduced to 5/10; discussed recent CT with Radiologist and clinical findings and recommended repeat cT for mass andor possible perforation which she has a past hx of; will repeat CT 06/30/18 09:[address]; pain improved now 4/10; no N&V; results pending; family placed at bedside; CMP show glu and renal fx ok; lytes ok slight low K+ 3.4; and mild elevation lever enz; ua pending; will monitor and recheck 06/30/18 09:56 cT results back and diverticulitis changes; still can't r/o mass sigmoid; small amount free fluid; ; ua pending; family at bedside 06/30/18 10:11 cbc elevated wbc 12.2 ; left shift; anemia h/h = 9.9/31.6; ua pending pain now 3 /10 and family at bedside 06/30/18 10:58 recheck and pain still 3/10 but nausea returning; stool neg for blood; ua sows trace leuk, sm ket; ms blood and 16-25 wbc and few bact on cath ua; ATBs were given; family at bedside; will consult LMD for disposition 06/30/18 11:46 Dr Escalante consulted and will admit; patient and family informed; bed requested Discussed with .: Pradeep (consulted and will admit) Will see patient in: hospital (observation) Counseled pt/family regarding: lab results, diagnosis, need for follow-up, rad results - Departure Time of Disposition: 11:47 Departure Disposition: Observation Clinical Impression: exacerbation diverticulitis, Hypokalemia, UTI (urinary tract infection), elevted lactic 2.2, Diverticulitis large intestine Condition: Fair Critical Care Time: No Referrals: GUILLAUME ESCALANTE MD [Primary Care Provider] -
[2018-06-30] MEDS ORDERED: Sodium Chloride 0.9% 1000 ML 1,000 ML IV SCH (08:30)
[2018-06-30] MEDS ORDERED: MORPHINE SULFATE 2 MG INJ ONE (08:32)
[2018-06-30] MEDS ORDERED: Zofran 4 MG/2 ML VIAL ONE (08:32)
[2018-06-30] MEDS ORDERED: FLAGYL 500 MG IVPB 500 MG/100 ML BAG IV ONE (08:33)
[2018-06-30] MEDS ORDERED: Sodium Chloride 0.9% 1000 ML 1,000 ML ONE (08:33)
[2018-06-30 08:38] LABS: Lactic Acid 2.2 (0.4-2.0)
[2018-06-30 09:02] LABS: Hematocrit 31.6 % (35-47); Hemoglobin 9.9 gm/dl (12.0-16.0); Mean Cell Volume 93.8 fl (78-100); Mean Corpuscular Hgb Concent. 31.3 g/dl (32-36); Platelet Count 400 K/mm3 (150-450); Red Blood Count 3.37 M/mm3 (4.1-5.4); Red Cell Distribution Width 13.5 % (11.5-14.0); White Blood Count 12.2 K/mm3 (4.0-10.5)
[2018-06-30 09:07] LABS: Mean Corpuscular Hemoglobin 29.3 pg (26-32)
[2018-06-30 09:20] LABS: ALBUMIN 3.5 g/dL (3.5-5.0); ALKALINE PHOSPHATASE 177 U/L (38-126); AMYLASE 34 U/L (30-110); ANION GAP 15.5 MEQ/L (5-15); BLOOD UREA NITROGEN 12 mg/dL (7-17); CHLORIDE 104 mmol/L (98-107); Calcium 9.7 mg/dL (8.4-10.2); Carbon Dioxide 23 mmol/L (22-30); Creatinine 1 0.85 mg/dL (0.52-1.04); Glucose 121 mg/dL (74-106); LIPASE 45 U/L (23-300); Potassium 3.4 mmol/L (3.5-5.1); SGOT/AST 13 U/L (14-36); SGPT/ALT 15 U/L (0-35); SODIUM 139 mmol/L (137-145); Total Protein 7.1 g/dL (6.3-8.2)
--- NOTE | 2018-06-30 09:49 | XRAY ---
Indication: Continued lower abdomen/pelvic pain with nausea and vomiting. Diverticulitis. Multiple contiguous axial images obtained through the abdomen and pelvis without contrast. Comparison: June 27, 2018. Lung bases demonstrates stable scattered fibrosis/scarring and moderate size hiatal hernia. Heart is not enlarged. Noncontrasted stomach and bowel loops remain nonobstructed with stable small descending duodenal diverticulum. Stable appearing mid sigmoid bowel wall thickening and stranding with tiny free fluid again favoring diverticulitis. Again a underlying sigmoid mass not completely excluded. No walled off fluid collection or free air. Stable appendectomy, hysterectomy, hepatic cysts, nonobstructing bilateral renal micro-calculus, pelvic macrocalcifications, and aortoiliac calcifications. Remaining liver, gallbladder, pancreas, spleen, adrenal glands, kidneys, ureters, and bladder are unremarkable for noncontrast exam. Osseous structures again demonstrates multilevel degenerative spondylosis, grade 1-2 L4 spondylolisthesis, and posterior L4-L5 spinous process fixation hardware. Impression: 1. Essentially stable CT findings favoring sigmoid diverticulitis with tiny free fluid. Once again a underlying sigmoid mass not completely excluded. 2. Stable hiatal hernia, duodenal diverticulum, hepatic cysts, nonobstructing bilateral renal micro-calculus, pelvic macrocalcifications, and chronic bony spinal findings. CTDI 23.13
[2018-06-30 09:57] LABS: BAND 3 % (0.0-2.0); Lymphocytes 6 % (24-44); Monocyte 9 % (0.0-12.0); Neutrophils 82 % (36.0-66.0); Total Cells Counted 100
[2018-06-30 09:58] LABS: Platelet Estimate NORMAL (NORMAL)
[2018-06-30] MEDS: Sodium Chloride 0.9% 1000 ML 1,000 ML IV STA ×2 (10:03→12:39)
[2018-06-30 10:20] LABS: Appearance CLEAR (CLEAR); Bacteria FEW /HPF (NEGATIVE); Bilirubin NEGATIVE (NEGATIVE); Blood SMALL Ery/ul (0-5); Epithelial Cells RARE /HPF (FEW); Glucose NEGATIVE (NEGATIVE); Ketones SMALL (NEGATIVE); Leukocyte Esterase TRACE (NEGATIVE); Nitrite NEGATIVE (NEGATIVE); Protein,Urine Dip 100 (Negative); RBC 26-50 /HPF (0-2); Specific Gravity 1.021 (1.005-1.025); Urobilinogen NEGATIVE mg/dL (0-1)
[2018-06-30] MEDS ORDERED: Phenergan 25 MG INJ IV ONE (10:26)
[2018-06-30] MEDS ORDERED: Phenergan 25 MG INJ ONE (10:30)
[2018-06-30] MEDS ORDERED: Colace 100 MG PO PRN (14:12)
[2018-06-30] MEDS ORDERED: NON-FORMULARY ITEM (Solifenacin Succinate [Vesicare] 5 MG) PO SCH (14:15)
[2018-06-30] MEDS: CARDURA 2 MG PO SCH (15:05)
[2018-06-30] MEDS: Ditropan 5 MG PO SCH (15:05)
[2018-06-30] MEDS: Aldactone 25 MG PO SCH (15:05)
[2018-06-30] MEDS: Pepcid 20 MG PO SCH (15:06)
[2018-06-30] MEDS: Miralax Powder 17GM PACKET PO SCH (15:06)
[2018-06-30] MEDS ORDERED: MORPHINE SULFATE 4 MG INJ IV PRN (17:23)
[2018-06-30] MEDS ORDERED: Zofran 4 MG/2 ML VIAL IV PRN (17:23)
[2018-06-30] MEDS: FLAGYL 500 MG IVPB 500 MG/100 ML BAG IV SCH ×2 (17:54→23:35)
[2018-06-30] MEDS: NEURONTIN 300 MG PO SCH (21:32)
[2018-06-30] MEDS: LACTULOSE 20 GM/30ML UD CUP PO SCH (21:32)
[2018-07-01] MEDS: FLAGYL 500 MG IVPB 500 MG/100 ML BAG IV SCH ×4 (05:25→23:39)
--- NOTE | 2018-07-01 08:54 | PCM.HP ---
History of Present Illness - Chief Complaint Chief Complaint: Diverticulitis History of Present Illness: is a 77 year old female pt of Dr. 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 She was discharged to home 2d ago and could not tolerate po. She had recurrent abdominal pain to 8/10 in suprapubic area and LLQ. Woke up in a sweat. She had a CT of the abd pelvis with diverticulitis, mass not completely excluded. She was restarted on IV flagyl and levaquin. This morning she is denying abd pain and would like her diet advanced as she is hungry. She has had 3 liquid stools that she could not control this morning. - Review of Systems Constitutional: Fever Abdominal/Gastrointestinal: Abdominal Pain, Nausea, Vomiting, Diarrhea Musculoskeletal: Arthralgias All Other Systems: Reviewed and Negative Medications & Allergies Home Medications: Home Medication List Aspirin EC 81 mg [Ecotrin 81 mg] 81 mg PO DAILY 05/29/18 [History Confirmed 06/30/18] Calcium Carb, Citrate/Vit D3 [Calcium + D3 ER Tablet] 1 each PO DAILY 05/29/18 [ History Confirmed 06/30/18] Doxazosin Mesylate 1 mg PO DAILY 05/29/18 [History Confirmed 06/30/18] Gabapentin 300 mg PO HS 05/29/18 [History Confirmed 06/30/18] L.acidoph,Paracasei, B.lactis [Probiotic] 1 each PO DAILY 05/29/18 [History Confirmed 06/30/18] Lactulose [Enulose] 15 gm PO BID 05/29/18 [History Confirmed 06/30/18] Polyethylene Glycol 3350 17 gm [Miralax Powder 17GM PACKET] 17 gm PO DAILY [History Confirmed 06/30/18] Ranitidine HCl 300 mg PO DAILY 05/29/18 [History Confirmed 06/30/18] Solifenacin Succinate [Vesicare] 5 mg PO 3XW 05/29/18 [History Confirmed ] Spironolactone 25 mg [Aldactone 25 MG] 25 mg PO DAILY 12/20/18 [History Confirmed 06/30/18] Docusate Sodium 100 mg [Colace 100 MG] 100 mg PO BID PRN #30 capsule 06/02 [Rx Confirmed 06/30/18] Levofloxacin [Levaquin] 250 mg PO DAILY #7 tablet 06/29/18 [Rx Confirmed ] Metronidazole 500 mg [Flagyl 500 MG] 500 mg PO Q8H #21 tablet 06/29/18 [ Rx Confirmed 06/30/18] Allergies/Adverse Reactions: Allergies Allergy/AdvReac Type Severity Reaction Status Date / Time No Known Drug Allergies Allergy Verified 06/30/18 12:21 - Past Medical History Past Medical History: Yes Neurological History: No Pertinent History, TIA ENT History: No Pertinent History, Cataracts Cardiac History: High Cholesterol, Hypertension Respiratory History: No Pertinent History Endocrine Medical History: No Pertinent History Musculoskelatal History: Arthritis, Degenerative Disk Disease GI Medical History: Diverticulitis, Diverticulosis History: No Pertinent History Pyscho-Social History: No Pertinent History Reproductive Disorders: No Pertinent History Comment: skin cancer face - Female History Are you now?: No - Past Surgical History Past Surgical History: Yes Neuro Surgical History: No Pertinent History Cardiac History: No Pertinent History Respiratory Surgery: No Pertinent History GI Surgical History: Appendectomy Genitourinary Surgical Hx: No Pertinent History Musculskeletal Surgical Hx: Orthopedic Surgery Female Surgical History: Hysterectomy Other Surgical History: back surgery, bilateral ankle surgeries. left knee surgery. rhinoplasty. - Social History Smoking Status: Never smoker Exposure to second hand smoke: No Alcohol: None Drug Use: none Significant Family History: no pertinent family hx - Physical Exam Vital Signs: Vital Signs - 24 hr Temp Pulse Resp BP Pulse Ox 07/01/18 07:12 98.2 F 88 20 144/69 96 07/01/18 04:00 100 F 89 24 140/70 94 L 06/30/18 23:56 98.6 F 98 H 20 169/79 95 06/30/18 20:00 99.2 F 100 H 20 144/66 94 L 06/30/18 16:00 98.7 F 98 H 18 133/61 96 06/30/18 12:24 99.7 F 108 H 18 159/70 96 06/30/18 12:20 99.3 F 98 H 20 150/77 97 06/30/18 11:53 97 06/30/18 11:26 112 H 16 163/83 99 06/30/18 10:12 101 H 16 141/83 96 Oxygen-Last 24 hours O2 Percentage 4 Liters = 36% General Appearance: no apparent distress, alert, obese Neurologic Exam: oriented x 3, cooperative Eye Exam: eyes nml inspection Ears, Nose, Throat Exam: moist mucous membranes Neck Exam: normal inspection Respiratory Exam: normal breath sounds, lungs clear, No crackles/rales, No rhonchi, No wheezing Cardiovascular Exam: regular rate/rhythm, normal heart sounds, No murmur Gastrointestinal/Abdomen Exam: soft, normal bowel sounds, No tenderness, No distention, No mass, No guarding, No rebound Back Exam: normal inspection, No rash Extremity Exam: normal inspection, No pedal edema, No swelling Skin Exam: normal color, warm, dry, No rash Results - Labs Lab/Micro Results: Lab Results-Last 24 Hours 06/30/18 06/30/18 06/30/18 Range/Units 08:30 08:30 08:52 WBC 12.2 H (4.0-10.5) K/mm3 RBC 3.37 L (4.1-5.4) M/mm3 Hgb 9.9 L (12.0-16.0) gm/dl Hct 31.6 L (35-47) % MCV 93.8 (78-100) fl MCH 29.3 (26-32) pg MCHC 31.3 L (32-36) g/dl RDW 13.5 (11.5-14.0) % Plt Count 400 (150-450) K/mm3 MPV 9.0 (6-9.5) fl Segmented Neutrophils 82 H (36.0-66.0) % Band Neutrophils 3 H (0.0-2.0) % Lymphocytes (Manual) 6 L (24-44) % Monocytes (Manual) 9 (0.0-12.0) % Platelet Estimate NORMAL (NORMAL) RBC Morphology NORMAL Sodium (137-145) mmol/L Potassium (3.5-5.1) mmol/L Chloride (98-107) mmol/L Carbon Dioxide (22-30) mmol/L Anion Gap (5-15) MEQ/L BUN (7-17) mg/dL Creatinine (0.52-1.04) mg/dL Estimated GFR ML/MIN Glucose (74-106) mg/dL Lactic Acid (0.4-2.0) Calcium (8.4-10.2) mg/dL Total Bilirubin (0.2-1.3) mg/dL AST (14-36) U/L ALT (0-35) U/L Alkaline Phosphatase (38-126) U/L Serum Total Protein (6.3-8.2) g/dL Albumin (3.5-5.0) g/dL Amylase (30-110) U/L Lipase (23-300) U/L Urine Color JEAN (YELLOW) Urine Appearance CLEAR (CLEAR) Urine pH 5.0 (5-6) Ur Specific [place] 1.021 (1.005-1.025) Urine Protein 100 (Negative) Urine Ketones SMALL (NEGATIVE) Urine Blood SMALL (0-5) Danilo/ul Urine Nitrite NEGATIVE (NEGATIVE) Urine Bilirubin NEGATIVE (NEGATIVE) Urine Urobilinogen NEGATIVE (0-1) mg/dL Ur Leukocyte Esterase TRACE (NEGATIVE) Urine WBC (Auto) 16-25 (0-5) /HPF Urine RBC (Auto) 26-50 (0-2) /HPF U Epithel Cells (Auto) RARE (FEW) /HPF Urine Bacteria (Auto) FEW (NEGATIVE) /HPF Urine Culture Reflexed NO (NO) Urine Glucose NEGATIVE (NEGATIVE) mg/dL Stool Occult Blood NEGATIVE (Negative) 06/30/18 06/30/18 Range/Units 08:52 10:37 WBC (4.0-10.5) K/mm3 RBC (4.1-5.4) M/mm3 Hgb (12.0-16.0) gm/dl Hct (35-47) % MCV (78-100) fl MCH (26-32) pg MCHC (32-36) g/dl RDW (11.5-14.0) % Plt Count (150-450) K/mm3 MPV (6-9.5) fl Segmented Neutrophils (36.0-66.0) % Band Neutrophils (0.0-2.0) % Lymphocytes (Manual) (24-44) % Monocytes (Manual) (0.0-12.0) % Platelet Estimate (NORMAL) RBC Morphology Sodium 139 (137-145) mmol/L Potassium 3.4 L (3.5-5.1) mmol/L Chloride 104 (98-107) mmol/L Carbon Dioxide 23 (22-30) mmol/L Anion Gap 15.5 H (5-15) MEQ/L BUN 12 (7-17) mg/dL Creatinine 0.85 (0.52-1.04) mg/dL Estimated GFR > 60.0 ML/MIN Glucose 121 H (74-106) mg/dL Lactic Acid 0.9 (0.4-2.0) Calcium 9.7 (8.4-10.2) mg/dL Total Bilirubin 1.30 (0.2-1.3) mg/dL AST 13 L (14-36) U/L ALT 15 (0-35) U/L Alkaline Phosphatase 177 H (38-126) U/L Serum Total Protein 7.1 (6.3-8.2) g/dL Albumin 3.5 (3.5-5.0) g/dL Amylase 34 (30-110) U/L Lipase 45 (23-300) U/L Urine Color (YELLOW) Urine Appearance (CLEAR) Urine pH (5-6) Ur Specific [place] (1.005-1.025) Urine Protein (Negative) Urine Ketones (NEGATIVE) Urine Blood (0-5) Danilo/ul Urine Nitrite (NEGATIVE) Urine Bilirubin (NEGATIVE) Urine Urobilinogen (0-1) mg/dL Ur Leukocyte Esterase (NEGATIVE) Urine WBC (Auto) (0-5) /HPF Urine RBC (Auto) (0-2) /HPF U Epithel Cells (Auto) (FEW) /HPF Urine Bacteria (Auto) (NEGATIVE) /HPF Urine Culture Reflexed (NO) Urine Glucose (NEGATIVE) mg/dL Stool Occult Blood (Negative) Microbiology 06/30/18 08:30 Urine Culture - Preliminary Catherized NO GROWTH TO DATE - Radiology Impressions Radiology Exams & Impressions: Radiology Procedures Category Date Time Status ABDOMEN AND PELVIS W/0 CONTRAS [CT] Stat Exams 06/30/18 08:52 Completed Assessment/Plan (1) Diverticulitis large intestine Current Visit: Yes Status: Acute Qualifiers: Diverticulitis bleeding: without bleeding Diverticulitis complication: without perforation or abscess Qualified Code(s): K57.32 - Diverticulitis of large intestine without perforation or abscess without bleeding Assessment & Plan: Continue IV flagly and levaquin. Advance diet. If tolerating well, may be able to d/c to home in the next day or two. Will need to f/u with colonoscopy after recovery due to question of mass; discussed with pt, she was already aware and had discussed with Dr. Fernández. Code(s): K57.32 - DVTRCLI OF LG INT W/O PERFORATION OR ABSCESS W/O BLEEDING (2) Hypokalemia Current Visit: Yes Status: Acute Assessment & Plan: will advance diet and I expect it will resolve (K+ 3.4 today). Code(s): E87.6 - HYPOKALEMIA
[2018-07-01] MEDS: Levofloxacin 500MG/100ML D5W 500 MG/100 ML BAG IV SCH (09:54)
[2018-07-01] MEDS ORDERED: NON-FORMULARY ITEM (Doxazosin Mesylate [Doxazosin Mesylate] 1 MG) PO SCH (10:00)
[2018-07-01] MEDS ORDERED: NON-FORMULARY ITEM (Ranitidine Hcl [Ranitidine Hcl] 300 MG) PO SCH (10:00)
[2018-07-01] MEDS: CARDURA 2 MG PO SCH (10:03)
[2018-07-01] MEDS: Aldactone 25 MG PO SCH (10:05)
[2018-07-01] MEDS: Pepcid 20 MG PO SCH (10:05)
[2018-07-01] MEDS: LACTULOSE 20 GM/30ML UD CUP PO SCH ×2 (10:06→21:05)
[2018-07-01] MEDS: Miralax Powder 17GM PACKET PO SCH ×2 (10:07→10:44)
[2018-07-01] MEDS: ENOXAPARIN SODIUM SQ SCH (10:44)
[2018-07-01] MEDS: TYLENOL 325 MG PO PRN (18:43)
[2018-07-01] MEDS: NEURONTIN 300 MG PO SCH (21:02)
[2018-07-02] MEDS: FLAGYL 500 MG IVPB 500 MG/100 ML BAG IV SCH ×4 (07:01→23:06)
--- NOTE | 2018-07-02 07:53 | PCM.NOTE ---
Date and Time: 07/02/18 0751 Subjective Assessment: patient reports her abdominal pain has completely resolved and she has no more nausea or vomiting, she is requesting a regular diet. sounds as though she couldn't tolerate her po flagyl at home so stopped her po antibiotics Objective Exam General Appearance: no apparent distress, obese Neurologic Exam: alert, oriented x 3 Skin Exam: normal color, warm, dry Respiratory Exam: normal breath sounds, lungs clear, No respiratory distress Cardiovascular Exam: regular rate/rhythm, normal heart sounds Gastrointestinal/Abdomen Exam: soft, normal bowel sounds, No tenderness, No mass Extremity Exam: normal inspection, normal range of motion OBJECTIVE DATA Vital Signs: Vital Signs - 24 hr Temp Pulse Resp BP Pulse Ox 07/02/18 04:20 98.0 F 86 20 140/65 96 07/02/18 00:21 98.9 F 85 20 115/59 96 07/01/18 19:24 98.5 F 103 H 20 149/74 96 07/01/18 16:36 98.1 F 80 20 126/66 98 07/01/18 11:21 98.1 F 80 20 133/63 96 Pain Assessment - Last Documented Pain Intensity 1 Pain Scale Used 0-10 Pain Scale Intake and Output: Intake & Output 06/29/18 06/30/18 07/01/18 07/02/18 11:59 11:59 11:59 11:59 Intake Total 2265 1400 Output Total 1600 650 Balance 665 750 Weight 90.718 kg 93.5 kg Radiology Exams: Radiology Procedures Category Date Time Status ABDOMEN AND PELVIS W/0 CONTRAS [CT] Stat Exams 06/30/18 08:52 Completed Assessment/Plan (1) Diverticulitis large intestine Current Visit: Yes Status: Acute Qualifiers: Diverticulitis bleeding: without bleeding Diverticulitis complication: without perforation or abscess Qualified Code(s): K57.32 - Diverticulitis of large intestine without perforation or abscess without bleeding Assessment & Plan: continue levaquin and flagyl, failed outpatient therapy, intolerance of po abx seems to be the issue. will advance diet. want resolution of symptoms, normal wbc etc prior to discharge due to readmission. Code(s): K57.32 - DVTRCLI OF LG INT W/O PERFORATION OR ABSCESS W/O BLEEDING
[2018-07-02] MEDS: Miralax Powder 17GM PACKET PO SCH (09:07)
[2018-07-02] MEDS: Levofloxacin 500MG/100ML D5W 500 MG/100 ML BAG IV SCH (09:07)
[2018-07-02] MEDS: Pepcid 20 MG PO SCH (09:08)
[2018-07-02] MEDS: Aldactone 25 MG PO SCH (09:08)
[2018-07-02] MEDS: Ditropan 5 MG PO SCH (09:08)
[2018-07-02] MEDS: CARDURA 2 MG PO SCH (09:08)
[2018-07-02] MEDS: ENOXAPARIN SODIUM SQ SCH (09:10)
[2018-07-02] MEDS: LACTULOSE 20 GM/30ML UD CUP PO SCH ×2 (09:15→21:55)
[2018-07-02] MEDS: NEURONTIN 300 MG PO SCH (21:53)
[2018-07-03] MEDS: TYLENOL 325 MG PO PRN (02:10)
[2018-07-03] MEDS: FLAGYL 500 MG IVPB 500 MG/100 ML BAG IV SCH (05:30)
[2018-07-03 05:32] LABS: Granulocyte Absolute (ANC) 5.01 (1.4-6.9); Hematocrit 28.5 % (35-47); Hemoglobin 8.6 gm/dl (12.0-16.0); Mean Cell Volume 95.6 fl (78-100); Mean Corpuscular Hgb Concent. 30.2 g/dl (32-36); Mean Platelet Volume 8.6 fl (6-9.5); Platelet Count 436 K/mm3 (150-450); Red Blood Count 2.98 M/mm3 (4.1-5.4); White Blood Count 7.9 K/mm3 (4.0-10.5)
[2018-07-03 05:41] LABS: Mean Corpuscular Hemoglobin 28.8 pg (26-32)
[2018-07-03 06:02] LABS: ANION GAP 8.9 MEQ/L (5-15); BLOOD UREA NITROGEN 18 mg/dL (7-17); CHLORIDE 106 mmol/L (98-107); Calcium 8.7 mg/dL (8.4-10.2); Carbon Dioxide 28 mmol/L (22-30); Creatinine 1 0.84 mg/dL (0.52-1.04); Glucose 103 mg/dL (74-106); Potassium 3.7 mmol/L (3.5-5.1); SODIUM 139 mmol/L (137-145)
--- NOTE | 2018-07-03 08:27 | PCM.DS ---
Discharge Summary Date of Admission: 06/30/18 14:30 Admitting Physician: GUILLAUME ESCALANTE Primary Care Provider: GUILLAUME ESCALANTE Allergies Allergies No Known Drug Allergies Allergy (Verified 06/30/18 12:21) Hospital Summary - Hospital Course Hospital Course: patient was readmitted with LLQ pain and nausea/vomiting, has had multiple CT scans with acute diverticulitis, last colonoscopy was with Dr José at [facility] 2 years ago following perforation from diverticulitis. she is tolerating po, pain and vomiting have resolved. - Vitals & Intake/Output Vital Signs: Vital Signs Temperature 97.8 F 07/03/18 07:27 Pulse Rate 82 07/03/18 07:27 Respiratory Rate 20 07/03/18 07:27 Blood Pressure 138/71 07/03/18 07:27 O2 Sat by Pulse Oximetry 97 07/03/18 07:27 Oxygen-Last Documented O2 Percentage 4 Liters = 36% Intake & Output: Intake & Output 06/30/18 07/01/18 07/02/18 07/03/18 11:59 11:59 11:59 11:59 Intake Total 2265 1900 2019 Output Total 1600 650 Balance 665 1250 2020 Weight 90.718 kg 93.5 kg 92.9 kg 93 kg - Lab Result Diagrams: 07/03/18 05:15 07/03/18 05:15 Lab Results-Last 24 Hrs: Lab Results-Last 24 Hours 07/03/18 07/03/18 Range/Units 05:15 05:15 WBC 7.9 (4.0-10.5) K/mm3 RBC 2.98 L (4.1-5.4) M/mm3 Hgb 8.6 L (12.0-16.0) gm/dl Hct 28.5 L (35-47) % MCV 95.6 (78-100) fl MCH 28.8 (26-32) pg MCHC 30.2 L (32-36) g/dl RDW 14.0 (11.5-14.0) % Plt Count 436 (150-450) K/mm3 MPV 8.6 (6-9.5) fl Absolute Granulocytes 5.01 (1.4-6.9) Sodium 139 (137-145) mmol/L Potassium 3.7 (3.5-5.1) mmol/L Chloride 106 (98-107) mmol/L Carbon Dioxide 28 (22-30) mmol/L Anion Gap 8.9 (5-15) MEQ/L BUN 18 H (7-17) mg/dL Creatinine 0.84 (0.52-1.04) mg/dL Estimated GFR > 60.0 ML/MIN Glucose 103 (74-106) mg/dL Calcium 8.7 (8.4-10.2) mg/dL Micro Results-Entire Visit: Microbiology 06/30/18 08:30 Urine Culture - Final Catherized NO GROWTH 06/30/18 08:52 Blood Culture - Preliminary Blood NO GROWTH TO DATE Discharge Exam General Appearance: no apparent distress, alert, obese Neurologic Exam: alert, oriented x 3 Skin Exam: normal color, warm, dry Respiratory Exam: normal breath sounds, lungs clear, No respiratory distress Cardiovascular Exam: regular rate/rhythm, normal heart sounds Gastrointestinal/Abdomen Exam: soft, normal bowel sounds, No tenderness, No distention, No guarding, No rebound Extremity Exam: normal inspection, normal range of motion Final Diagnosis/Problem List - Final Discharge Diagnosis/Problem (1) Diverticulitis large intestine Current Visit: Yes Status: Acute Assessment & Plan: doing well now, unable to tolerate flagyl at home. will send home on cirpo and give zofran and ultram prn - Discharge Disposition: Home, Self-Care Condition: Good Prescriptions: New Ciprofloxacin [Cipro 500 MG] 500 mg PO BID #14 tablet Tramadol HCl [Ultram] 50 mg PO Q6H PRN PRN #20 tablet PRN Reason: Pain Ondansetron ODT 4 MG [Zofran Odt 4 mg] 4 mg PO Q6H PRN PRN #10 tab.rapdis PRN Reason: Nausea Continue Aspirin EC 81 mg [Ecotrin 81 mg] 81 mg PO DAILY Polyethylene Glycol 3350 17 gm [Miralax Powder 17GM PACKET] 17 gm PO DAILY Spironolactone 25 mg [Aldactone 25 MG] 25 mg PO DAILY Solifenacin Succinate [Vesicare] 5 mg PO 3XW Ranitidine HCl 300 mg PO DAILY Lactulose [Enulose] 15 gm PO BID L.acidoph,Paracasei, B.lactis [Probiotic] 1 each PO DAILY Gabapentin 300 mg PO HS Doxazosin Mesylate 1 mg PO DAILY Calcium Carb, Citrate/Vit D3 [Calcium + D3 ER Tablet] 1 each PO DAILY Docusate Sodium 100 mg [Colace 100 MG] 100 mg PO BID PRN #30 capsule PRN Reason: Constipation Discontinued Metronidazole 500 mg [Flagyl 500 MG] 500 mg PO Q8H #21 tablet Levofloxacin [Levaquin] 250 mg PO DAILY #7 tablet Follow up with: GUILLAUME ESCALANTE MD [Primary Care Provider] - 1 Week
[2018-07-03] MEDS: Pepcid 20 MG PO SCH (09:58)
[2018-07-03] MEDS: Aldactone 25 MG PO SCH (09:58)
[2018-07-03] MEDS: CARDURA 2 MG PO SCH (09:58)
[2018-07-03] MEDS: Levofloxacin 500MG/100ML D5W 500 MG/100 ML BAG IV SCH (09:59)
[2018-07-03] MEDS: Miralax Powder 17GM PACKET PO SCH (09:59)
[2018-07-03] MEDS: ENOXAPARIN SODIUM SQ SCH (09:59)
[2018-07-03] MEDS: LACTULOSE 20 GM/30ML UD CUP PO SCH (09:59)
[2018-07-03 10:28] LABS: ANISOCYTOSIS 1+; Eosinophil 3 % (0.00-3.0); Lymphocytes 27 % (24-44); Monocyte 7 % (0.0-12.0); Neutrophils 63 % (36.0-66.0); Platelet Estimate NORMAL (NORMAL); Total Cells Counted 100
[2018-07-03 12:20] VITALS: BP 132/63; PULSE 80; O2SAT 96
== END 2018-07-03 12:15 | disposition home or self-care (01) | DRG 392 ==
LOC: ED 07:57 → MED SURG 12:04 → OBSVTOIN 14:30
PROVIDERS: ADMIT Family Medicine; ATTEND Family Medicine
DX: K57.32 Diverticulitis of large intestine without perforation or abscess without bleeding (principal); E87.6 Hypokalemia; R11.2 Nausea with vomiting, unspecified; N39.0 Urinary tract infection, site not specified; R19.7 Diarrhea, unspecified; R10.31 Right lower quadrant pain; R10.32 Left lower quadrant pain; R74.0 Nonspecific elevation of levels of transaminase and lactic acid dehydrogenase [LDH]; I10 Essential (primary) hypertension; Z79.899 Other long term (current) drug therapy
CPT/HCPCS: 36000; 36415; 74176; 80048; 80053; 81001; 82150; 82272; 83605; 83690; 85025; 87040; 87086; 96360; 96365; 96367; 96374; 96375; 99285; P9612; J1650; J1956; J2270; J2405; J2550; A9270-GY

== ENCOUNTER 2020-12-23 12:54 | Observation (INO) | payer MEDICARE, BC ==
[2020-12-23 13:25] LABS: Absolute Neutrophil Ct (ANC) 6.04 (1.4-6.9); BASOPHIL % 0.5 % (0.0-0.4); Basophil (Absolute #) 0.04 (0-0.4); Eosinophil % 1.2 % (0.00-5.0); Hemoglobin 13.3 gm/dl (12.0-16.0); Lymphocyte (Absolute #) 1.14 (1.0-4.6); Lymphocytes % 13.3 % (24.0-44.0); Mean Cell Volume 94.2 fl (78-100); Mean Corpuscular Hemoglobin 29.8 pg (26-32); Mean Corpuscular Hgb Concent. 31.7 g/dl (32-36); Monocyte (Absolute #) 1.22 (0.0-1.3); Monocytes % 14.3 % (0.0-12.0); Neutrophil % 70.7 % (36.0-66.0); Platelet Count 397 K/mm3 (150-450); Red Blood Count 4.46 M/mm3 (4.1-5.4); Red Cell Distribution Width 12.9 % (11.5-14.0); White Blood Count 8.5 K/mm3 (4.0-10.5)
[2020-12-23 13:32] LABS: ALKALINE PHOSPHATASE 128 U/L (38-126); AMYLASE 45 U/L (30-110); ANION GAP 18.6 MEQ/L (5-15); BLOOD UREA NITROGEN 18 mg/dL (7-17); CHLORIDE 101 mmol/L (98-107); Calcium 9.8 mg/dL (8.4-10.2); Carbon Dioxide 21 mmol/L (22-30); Creatinine 1 0.92 mg/dL (0.52-1.04); EST GLOMERULAR FILTRATION RATE > 60.0 ML/MIN; Glucose 115 mg/dL (74-106); LIPASE 75 U/L (23-300); Potassium 3.8 mmol/L (3.5-5.1); SGOT/AST 20 U/L (14-36); SGPT/ALT 12 U/L (0-35); SODIUM 137 mmol/L (137-145); Total Protein 7.3 g/dL (6.3-8.2)
[2020-12-23] MEDS ORDERED: SUBLIMAZE 100 MCG/2 ML IV ONE (13:54)
[2020-12-23] MEDS ORDERED: Zofran 4 MG/2 ML VIAL IV ONE (13:55)
[2020-12-23] MEDS ORDERED: Zofran 4 MG/2 ML VIAL ONE (13:59)
[2020-12-23] MEDS ORDERED: SUBLIMAZE 100 MCG/2 ML ONE (13:59)
--- NOTE | 2020-12-23 14:00 | ERPHSYRPT ---
- History of Present Illness Historian: patient Patient Subjective Stated Complaint: Pt has a hx of diverticulitis and has been hurting for approx 1 week and she went to [facility] care on 12/19 and was told that it was dicerticulitis and also has some infection and was given antibiotics, pt continues to have pain and is getting weaker Triage Nursing Assessment: Pt was brought to the ER by her , hypertensive, rates abdominal pain as 8/10, tender to palpate LLQ, pulses normal, last BM today, last intake at 1830 yesterday Physician History: 80 yo wf w LLQ pain x 1wk. Pt has had multiple episodes of diverticulitis and is currently taking Flagyl/Cipro per urgent care visit on 12/19/20. Pain is 7/10 on scale and better w lying flat. She has had diarrhea since 12/06/20 wo melena/hematochezia. She denies fever/dysuria/hematuria/chest pain/cough/dyspnea. Timing/Duration: other (1wk) Activities at Onset: rest Quality: other (Just pain) Pain Radiation: LLQ Severity of Pain-Max: severe Severity of Pain-Current: severe Modifying Factors: Improves With: lying down (Better lying down) Associated Symptoms: diarrhea, loss of appetite, nausea, weakness, No back, No chest pain, No diaphoresis, No fever/chills, No fatigue, No headache, No heartburn, No neck pain, No rash, No shortness of breath, No syncope, No vomiting Previous symptoms: same symptoms as today Allergies/Adverse Reactions: No Known Drug Allergies Allergy (Verified 12/23/20 13:13) Home Medications: Aspirin EC 81 mg [Ecotrin 81 mg] 81 mg PO DAILY 05/29/18 [History] Calcium Carb, Citrate/Vit D3 [Calcium + D3 ER Tablet] 1 each PO DAILY 05/29/18 [History] Doxazosin Mesylate 1 mg PO DAILY 05/29/18 [History] Gabapentin 300 mg PO HS 05/29/18 [History] Polyethylene Glycol 3350 17 gm [Miralax Powder 17GM PACKET] 17 gm PO DAILY 05/29/18 [History] Solifenacin Succinate [Vesicare] 5 mg PO HS 05/29/18 [History] Spironolactone 25 mg [Aldactone 25 MG] 25 mg PO DAILY 05/29/18 [History] Diphenhydramine HCl 25 mg [Benadryl 25 mg Capsule] 25 mg PO BID 12/23/20 [History] Famotidine [Pepcid] 40 mg PO DAILY 12/23/20 [History] Ibuprofen 200 mg [Motrin 200 mg] 200 mg PO DAILY 12/23/20 [History] Mecobalamin [B12 Active] 500 mcg PO DAILY 12/23/20 [History] Metronidazole 500 mg [Flagyl 500 MG] 500 mg PO QID 12/23/20 [History] Hx Influenza Vaccination/Date Given: No Travel Risk - International Travel Have you traveled outside of the country in past 3 weeks: No - Coronavirus Screening Are you exhibiting any of the following symptoms?: No Close contact with a COVID-19 positive Pt in past 14-21 Days: No - Vaccine Status Have you recieved a Covid-19 vaccination: Yes [employer]: [employer] - Vaccination Dates Date of 2cond Vaccination (if applicable): 09/16/2020 - Review of Systems Constitutional: No Symptoms Eyes: No Symptoms Ears, Nose, & Throat: No Symptoms Respiratory: No Symptoms Cardiac: No Symptoms Abdominal/Gastrointestinal: Abdominal Pain, Nausea, Diarrhea, Appetite Changes, No Vomiting, No Constipation, No Hematemesis, No Hematochezia, No Melena, No Dysphagia Genitourinary Symptoms: No Symptoms Musculoskeletal: No Symptoms Skin: No Symptoms Neurological: No Symptoms Psychological: No Symptoms Endocrine: No Symptoms Hematologic/Lymphatic: No Symptoms Immunological/Allergic: No Symptoms - Past Medical History Pertinent Past Medical History: Yes Neurological History: No Pertinent History, TIA ENT History: No Pertinent History, Cataracts Cardiac History: High Cholesterol, Hypertension Respiratory History: No Pertinent History Endocrine Medical History: No Pertinent History Musculoskeletal History: Arthritis, Degenerative Disk Disease GI Medical History: Diverticulitis, Diverticulosis History: No Pertinent History Psycho-Social History: No Pertinent History Female Reproductive Disorders: No Pertinent History Other Medical History: skin cancer face - Past Surgical History Past Surgical History: Yes Neuro Surgical History: No Pertinent History Cardiac: No Pertinent History Respiratory: No Pertinent History Gastrointestinal: Appendectomy Genitourinary: No Pertinent History Musculoskeletal: Orthopedic Surgery Female Surgical History: Hysterectomy Other Surgical History: back surgery, bilateral ankle surgeries. left knee surgery. rhinoplasty. - Social History Smoking Status: Never smoker Exposure to second hand smoke: No Alcohol Use: None Drug Use: none Patient Lives Alone: No Significant Family History: no pertinent family hx - Female History Hx Now: No - Nursing Vital Signs Nursing Vital Signs: Initial Vital Signs Temperature 97.2 F 12/23/20 13:02 Pulse Rate 91 H 12/23/20 13:02 Blood Pressure 172/98 12/23/20 13:02 O2 Sat by Pulse Oximetry 99 12/23/20 13:02 Pain Scale Pain Intensity [Left Lower 8 Abdomen] Pain Intensity 6 Hypertensive - Physical Exam General Appearance: no apparent distress Eye Exam: PERRL/EOMI, eyes nml inspection Ears, Nose, Throat Exam: normal ENT inspection, TMs normal, pharynx normal, moist mucous membranes Neck Exam: normal inspection, non-tender, supple, No meningismus, No mass, No Brudzinski, No Kernig's Respiratory Exam: normal breath sounds, lungs clear, airway intact, No respiratory distress Cardiovascular Exam: regular rate/rhythm, normal heart sounds, normal peripheral pulses, No murmur Gastrointestinal/Abdomen Exam: soft, tenderness (LLQ w guarding/No rebound) Back Exam: normal inspection, normal range of motion, No CVA tenderness Extremity Exam: normal inspection, normal range of motion Neurologic Exam: alert, oriented x 3, cooperative, roof tiler II-XII nml as tested, normal mood/affect, sensation nml Skin Exam: normal color, warm, dry Lymphatic Exam: No adenopathy SpO2 Interpretation: normal SpO2: 99 O2 Delivery: Room Air - Course Nursing assessment & vital signs reviewed: Yes - CT Exams Abdomen/Pelvis CT Interpretation: Discussed w/radiologist (Fecal stasis/urinary bladder intraluminal air/Distended gallbladder) Ordered Tests: Active Orders 24 hr Category Date Time Status EKG-ER Only STAT Care 12/23/20 13:08 Completed IV Insertion STAT Care 12/23/20 13:08 Completed Clear Liquid Diet 12/24/20 Breakfast Active ABDOMEN AND PELVIS W CONTRAST [CT] Stat Exams 12/23/20 14:43 Completed AMYLASE Stat Lab 12/23/20 13:19 Completed CBC W DIFF AM.LAB Lab 12/24/20 04:00 Ordered CBC W DIFF Stat Lab 12/23/20 13:19 Completed CMP AM.LAB Lab 12/24/20 04:00 Ordered CMP Stat Lab 12/23/20 13:19 Completed CULTURE,URINE Stat Lab 12/23/20 15:03 Received LIPASE Stat Lab 12/23/20 13:19 Completed Lactic Acid Stat Lab 12/23/20 13:19 Completed TROPONIN Q3H Lab 12/23/20 13:19 Completed TROPONIN Q3H Lab 12/23/20 16:20 Completed TROPONIN Q3H Lab 12/24/20 01:15 Ordered UA W/RFX UR CULTURE Stat Lab 12/23/20 15:03 Completed Transfer Order Routine Transfer 12/23/20 Completed Medication Summary Generic Name Dose Route Start Last Admin Trade Name Freq PRN Reason Stop Dose Admin Sodium Chloride 1,000 mls @ 100 mls/hr 12/23/20 17:45 12/23/20 17:54 Sodium Chloride 0.9% 1000 Ml IV 01/22/21 17:44 100 mls/hr .Q10H JHON Administration Ceftriaxone Sodium/Dextrose 1 g in 50 mls @ 100 mls/hr 12/24/20 10:00 Rocephin 1 Gm-D5w 50 Ml Bag IV 12/27/20 09:59 Q24H10 JHON Discontinued Medications Generic Name Dose Route Start Last Admin Trade Name Freq PRN Reason Stop Dose Admin Fentanyl Citrate 25 mcg 12/23/20 13:54 12/23/20 14:05 Sublimaze 100 Mcg/2 Ml IV 12/23/20 13:55 25 mcg STAT ONE Administration Fentanyl Citrate Confirm 12/23/20 13:59 Sublimaze 100 Mcg/2 Ml Administered 12/23/20 14:00 Dose 100 mcg .ROUTE .STK-MED ONE Ceftriaxone Sodium/Dextrose 1 g in 50 mls @ 100 mls/hr 12/23/20 17:50 12/23/20 18:26 Rocephin 1 Gm-D5w 50 Ml Bag IV 12/23/20 18:19 Infused STAT STA Infusion Ceftriaxone Sodium/Dextrose Confirm 12/23/20 17:52 Rocephin 1 Gm-D5w 50 Ml Bag Administered 12/23/20 17:53 Dose 1 g in 50 mls @ ud IV .STK-MED ONE Ondansetron HCl 4 mg 12/23/20 13:55 12/23/20 14:05 Zofran 4 Mg/2 Ml Vial IV 12/23/20 13:56 4 mg STAT ONE Administration Ondansetron HCl Confirm 12/23/20 13:59 Zofran 4 Mg/2 Ml Vial Administered 12/23/20 14:00 Dose 4 mg .ROUTE .STK-MED ONE Lab/Rad Data: Laboratory Result Diagrams 12/23/20 13:19 12/23/20 13:19 Laboratory Results 12/23/20 12/23/20 12/23/20 Range/Units 18:23 16:20 15:03 WBC (4.0-10.5) K/mm3 RBC (4.1-5.4) M/mm3 Hgb (12.0-16.0) gm/dl Hct (35-47) % MCV (78-100) fl MCH (26-32) pg MCHC (32-36) g/dl RDW (11.5-14.0) % Plt Count (150-450) K/mm3 MPV (7.5-11.0) fl Gran % (36.0-66.0) % Eos # (Auto) (0-0.5) Absolute Lymphs (auto) (1.0-4.6) Absolute Monos (auto) (0.0-1.3) Lymphocytes % (24.0-44.0) % Monocytes % (0.0-12.0) % Eosinophils % (0.00-5.0) % Basophils % (0.0-0.4) % Absolute Granulocytes (1.4-6.9) Basophils # (0-0.4) Sodium (137-145) mmol/L Potassium (3.5-5.1) mmol/L Chloride (98-107) mmol/L Carbon Dioxide (22-30) mmol/L Anion Gap (5-15) MEQ/L BUN (7-17) mg/dL Creatinine (0.52-1.04) mg/dL Estimated GFR ML/MIN Glucose (74-106) mg/dL Lactic Acid (0.4-2.0) Calcium (8.4-10.2) mg/dL Total Bilirubin (0.2-1.3) mg/dL AST (14-36) U/L ALT (0-35) U/L Alkaline Phosphatase (38-126) U/L Troponin I < 0.012 (0.000-0.034) ng/mL Serum Total Protein (6.3-8.2) g/dL Albumin (3.5-5.0) g/dL Amylase (30-110) U/L Lipase (23-300) U/L Urine Color JEAN (YELLOW) Urine Appearance CLOUDY (CLEAR) Urine pH 6.0 (5-6) Ur Specific Everly 1.020 (1.005-1.025) Urine Protein 100 (Negative) Urine Ketones MODERATE (NEGATIVE) Urine Blood MODERATE (0-5) Danilo/ul Urine Nitrite NEGATIVE (NEGATIVE) Urine Bilirubin NEGATIVE (NEGATIVE) Urine Urobilinogen 2 (0-1) mg/dL Ur Leukocyte Esterase MODERATE (NEGATIVE) Urine WBC (Auto) >100 (0-5) /HPF Urine RBC (Auto) 26-50 (0-2) /HPF U Epithel Cells (Auto) RARE (FEW) /HPF Urine Bacteria (Auto) MODERATE (NEGATIVE) /HPF Urine Mucus (Auto) SLIGHT (NEGATIVE) /HPF Urine Culture Reflexed YES (NO) Urine Glucose NEGATIVE (NEGATIVE) mg/dL SARS-CoV-2 (PCR) NEGATIVE (NEGATIVE) 12/23/20 12/23/20 12/23/20 Range/Units 13:19 13:19 13:19 WBC (4.0-10.5) K/mm3 RBC (4.1-5.4) M/mm3 Hgb (12.0-16.0) gm/dl Hct (35-47) % MCV (78-100) fl MCH (26-32) pg MCHC (32-36) g/dl RDW (11.5-14.0) % Plt Count (150-450) K/mm3 MPV (7.5-11.0) fl Gran % (36.0-66.0) % Eos # (Auto) (0-0.5) Absolute Lymphs (auto) (1.0-4.6) Absolute Monos (auto) (0.0-1.3) Lymphocytes % (24.0-44.0) % Monocytes % (0.0-12.0) % Eosinophils % (0.00-5.0) % Basophils % (0.0-0.4) % Absolute Granulocytes (1.4-6.9) Basophils # (0-0.4) Sodium 137 (137-145) mmol/L Potassium 3.8 (3.5-5.1) mmol/L Chloride 101 (98-107) mmol/L Carbon Dioxide 21 L (22-30) mmol/L Anion Gap 18.6 H (5-15) MEQ/L BUN 18 H (7-17) mg/dL Creatinine 0.92 (0.52-1.04) mg/dL Estimated GFR > 60.0 ML/MIN Glucose 115 H (74-106) mg/dL Lactic Acid 1.4 (0.4-2.0) Calcium 9.8 (8.4-10.2) mg/dL Total Bilirubin 0.40 (0.2-1.3) mg/dL AST 20 (14-36) U/L ALT 12 (0-35) U/L Alkaline Phosphatase 128 H (38-126) U/L Troponin I < 0.012 (0.000-0.034) ng/mL Serum Total Protein 7.3 (6.3-8.2) g/dL Albumin 4.0 (3.5-5.0) g/dL Amylase 45 (30-110) U/L Lipase 75 (23-300) U/L Urine Color (YELLOW) Urine Appearance (CLEAR) Urine pH (5-6) Ur Specific Everly (1.005-1.025) Urine Protein (Negative) Urine Ketones (NEGATIVE) Urine Blood (0-5) Danilo/ul Urine Nitrite (NEGATIVE) Urine Bilirubin (NEGATIVE) Urine Urobilinogen (0-1) mg/dL Ur Leukocyte Esterase (NEGATIVE) Urine WBC (Auto) (0-5) /HPF Urine RBC (Auto) (0-2) /HPF U Epithel Cells (Auto) (FEW) /HPF Urine Bacteria (Auto) (NEGATIVE) /HPF Urine Mucus (Auto) (NEGATIVE) /HPF Urine Culture Reflexed (NO) Urine Glucose (NEGATIVE) mg/dL SARS-CoV-2 (PCR) (NEGATIVE) 12/23/20 Range/Units 13:19 WBC 8.5 (4.0-10.5) K/mm3 RBC 4.46 (4.1-5.4) M/mm3 Hgb 13.3 (12.0-16.0) gm/dl Hct 42.0 (35-47) % MCV 94.2 (78-100) fl MCH 29.8 (26-32) pg MCHC 31.7 L (32-36) g/dl RDW 12.9 (11.5-14.0) % Plt Count 397 (150-450) K/mm3 MPV 9.0 (7.5-11.0) fl Gran % 70.7 H (36.0-66.0) % Eos # (Auto) 0.10 (0-0.5) Absolute Lymphs (auto) 1.14 (1.0-4.6) Absolute Monos (auto) 1.22 (0.0-1.3) Lymphocytes % 13.3 L (24.0-44.0) % Monocytes % 14.3 H (0.0-12.0) % Eosinophils % 1.2 (0.00-5.0) % Basophils % 0.5 (0.0-0.4) % Absolute Granulocytes 6.04 (1.4-6.9) Basophils # 0.04 (0-0.4) Sodium (137-145) mmol/L Potassium (3.5-5.1) mmol/L Chloride (98-107) mmol/L Carbon Dioxide (22-30) mmol/L Anion Gap (5-15) MEQ/L BUN (7-17) mg/dL Creatinine (0.52-1.04) mg/dL Estimated GFR ML/MIN Glucose (74-106) mg/dL Lactic Acid (0.4-2.0) Calcium (8.4-10.2) mg/dL Total Bilirubin (0.2-1.3) mg/dL AST (14-36) U/L ALT (0-35) U/L Alkaline Phosphatase (38-126) U/L Troponin I (0.000-0.034) ng/mL Serum Total Protein (6.3-8.2) g/dL Albumin (3.5-5.0) g/dL Amylase (30-110) U/L Lipase (23-300) U/L Urine Color (YELLOW) Urine Appearance (CLEAR) Urine pH (5-6) Ur Specific Everly (1.005-1.025) Urine Protein (Negative) Urine Ketones (NEGATIVE) Urine Blood (0-5) Danilo/ul Urine Nitrite (NEGATIVE) Urine Bilirubin (NEGATIVE) Urine Urobilinogen (0-1) mg/dL Ur Leukocyte Esterase (NEGATIVE) Urine WBC (Auto) (0-5) /HPF Urine RBC (Auto) (0-2) /HPF U Epithel Cells (Auto) (FEW) /HPF Urine Bacteria (Auto) (NEGATIVE) /HPF Urine Mucus (Auto) (NEGATIVE) /HPF Urine Culture Reflexed (NO) Urine Glucose (NEGATIVE) mg/dL SARS-CoV-2 (PCR) (NEGATIVE) - Progress Progress: improved Progress Note: 12/23/20 17:38 25umg IV Fentanyl/4mg IV Zofran w improvement 12/23/20 17:[address] Perera 12/23/20 21:43 1gm IV rocephin Discussed with : Fanny Counseled pt/family regarding: lab results, diagnosis, rad results - Departure Departure Disposition: Observation Clinical Impression: UTI (urinary tract infection), Diarrhea Condition: Stable Critical Care Time: No
[2020-12-23 15:47] LABS: Appearance CLOUDY (CLEAR); Bacteria MODERATE /HPF (NEGATIVE); Bilirubin NEGATIVE (NEGATIVE); Blood MODERATE Ery/ul (0-5); Epithelial Cells RARE /HPF (FEW); Glucose NEGATIVE (NEGATIVE); Ketones MODERATE (NEGATIVE); Leukocyte Esterase MODERATE (NEGATIVE); Mucus SLIGHT /HPF (NEGATIVE); Nitrite NEGATIVE (NEGATIVE); Protein,Urine Dip 100 (Negative); RBC 26-50 /HPF (0-2); Urobilinogen 2 mg/dL (0-1); WBC >100 /HPF (0-5)
--- NOTE | 2020-12-23 16:37 | XRAY ---
Indication: Left lower quadrant pain. Loose stools. History diverticulitis. Multiple contiguous axial images obtained through the abdomen and pelvis using 80 cc Isovue 370 contrast. Comparison: June 30, 2018. Lung bases again demonstrates scattered fibrosis/scarring without infiltrate or effusion. Heart not enlarged. Stable moderate sized hiatal hernia. Noncontrasted stomach and bowel loops remain nonobstructed. There is mild fecal debris predominantly left hemicolon and sigmoid colon with mild rectal impaction. Again scattered sigmoid diverticulosis with now dense radiopacities in diverticuli presumed ingested barium now producing beam artifact. Again appendectomy and hysterectomy. No free fluid/air. Urinary bladder demonstrates new intraluminal air either iatrogenic from recent catheterization versus gas-forming bacterial infection. Stable fatty liver, hepatic cysts, nonobstructing bilateral renal micro-calculus, and pelvic macrocalcification. Gallbladder is now moderately distended without gallstones or biliary distention. Remaining liver, pancreas, spleen, adrenal glands, kidneys, and ureters unremarkable. There remains mild scattered aortoiliac calcifications. No AAA or pathological retroperitoneal lymphadenopathy. Osseous structures again demonstrates osteopenia, multilevel degenerative spondylosis, grade 1-2 L4 spondylolisthesis, and posterior L4-L5 spinous process fixation hardware. Impression: 1. New mild fecal stasis with mild rectal impaction. 2. New urinary bladder intraluminal air either iatrogenic versus gas-forming bacterial infection. 3. Distended gallbladder better evaluated with sonogram if clinically warranted. 4. Again hiatal hernia, sigmoid diverticulosis, hepatic cysts, nonobstructing bilateral renal micro-calculus, pelvic macrocalcification, and chronic bony findings.
[2020-12-23] MEDS: ROCEPHIN 1 Gm-D5w 50 ml Bag** 1 G/50 ML IVPB IV SCH (17:48)
[2020-12-23] MEDS ORDERED: ROCEPHIN 1 Gm-D5w 50 ml Bag** 1 G/50 ML IVPB IV STA (17:50)
[2020-12-23] MEDS ORDERED: ROCEPHIN 1 Gm-D5w 50 ml Bag** 1 G/50 ML IVPB IV ONE (17:52)
[2020-12-23] MEDS: Sodium Chloride 0.9% 1000 ML 1,000 ML IV SCH (17:54)
[2020-12-23] MEDS ORDERED: BABY ASPIRIN 81 MG CHEW PO SCH (22:37)
[2020-12-23] MEDS ORDERED: Zofran 4 MG/2 ML VIAL IV PRN (22:41)
[2020-12-23] MEDS ORDERED: K-LYTE 25 MEQ PO ONE (22:41)
[2020-12-23] MEDS ORDERED: TYLENOL 325 MG PO PRN (22:41)
[2020-12-23] MEDS ORDERED: NORCO 5/325 MG PO PRN (22:41)
[2020-12-23] MEDS ORDERED: ECOTRIN 81 MG PO ONE (23:02)
[2020-12-23] MEDS: Pepcid 20 MG VIAL IV SCH (23:06)
[2020-12-23] MEDS: Aldactone 25 MG PO SCH (23:07)
[2020-12-23] MEDS: NEURONTIN 300 MG PO SCH (23:07)
[2020-12-23] MEDS: Calcium 500MG W/Vit D Tablet PO SCH (23:07)
[2020-12-23] MEDS: BENADRYL 25 MG CAPSULE PO SCH (23:07)
[2020-12-23 23:20] LABS: 027 TOX PROD PRESUMPTIVE NEGATIVE (NEGATIVE); TOXIGENIC C. DIFF ORG NEGATIVE (NEGATIVE)
[2020-12-24 01:52] LABS: Hematocrit 39.9 % (35-47); Hemoglobin 12.5 gm/dl (12.0-16.0); Mean Cell Volume 95.2 fl (78-100); Mean Corpuscular Hemoglobin 29.8 pg (26-32); Mean Corpuscular Hgb Concent. 31.3 g/dl (32-36); Mean Platelet Volume 9.4 fl (7.5-11.0); Platelet Count 428 K/mm3 (150-450); Red Blood Count 4.19 M/mm3 (4.1-5.4); White Blood Count 8.2 K/mm3 (4.0-10.5)
[2020-12-24 02:05] LABS: ALBUMIN 3.9 g/dL (3.5-5.0); ALKALINE PHOSPHATASE 126 U/L (38-126); ANION GAP 15.5 MEQ/L (5-15); BLOOD UREA NITROGEN 17 mg/dL (7-17); CHLORIDE 101 mmol/L (98-107); Calcium 9.6 mg/dL (8.4-10.2); Carbon Dioxide 24 mmol/L (22-30); Creatinine 1 0.88 mg/dL (0.52-1.04); EST GLOMERULAR FILTRATION RATE > 60.0 ML/MIN; Glucose 120 mg/dL (74-106); Potassium 4.6 mmol/L (3.5-5.1); SGOT/AST 30 U/L (14-36); SGPT/ALT 13 U/L (0-35); SODIUM 137 mmol/L (137-145); Total Protein 7.2 g/dL (6.3-8.2)
[2020-12-24 05:33] LABS: BAND 3 % (0.0-2.0); Basophil 1 % (0.0-1.0); Eosinophil 3 % (0.00-3.0); Lymphocytes 22 % (24-44); Monocyte 10 % (0.0-12.0); Neutrophils 61 % (36.0-66.0); Platelet Estimate NORMAL (NORMAL); Total Cells Counted 100
[2020-12-24] MEDS: Sodium Chloride 0.9% 1000 ML 1,000 ML IV SCH ×2 (09:38→19:57)
[2020-12-24] MEDS: ECOTRIN 81 MG PO SCH (09:38)
[2020-12-24] MEDS: BENADRYL 25 MG CAPSULE PO SCH ×2 (09:38→21:07)
[2020-12-24] MEDS: Aldactone 25 MG PO SCH (09:38)
[2020-12-24] MEDS: Calcium 500MG W/Vit D Tablet PO SCH (09:38)
[2020-12-24] MEDS: ROCEPHIN 1 Gm-D5w 50 ml Bag** 1 G/50 ML IVPB IV SCH (09:39)
[2020-12-24] MEDS: Pepcid 20 MG VIAL IV SCH (09:39)
--- NOTE | 2020-12-24 14:05 | PCM.HP ---
History of Present Illness - Chief Complaint Chief Complaint: uti, diarrhea History of Present Illness: is a 80 year old female who presented to ER with generalized weakness following several days of diarrhea and LLQ pain. She is incontinent of stool and urine and wears a depends. PMHx includes perforated divertic Tx by Dr Alexis José with days of bowel rest and did not require surgery. She has had some rectal and urinary blood in her depends and has seen Urology who cauterized an area in the bladde states "not cancer". Dr José did colonoscopy and was unable to pass scope so LGI was done and Dr José will redo colonoscopy joan for this OCT. - Review of Systems Constitutional: Fatigue Eyes: No Symptoms Ears, Nose, & Throat: No Symptoms Respiratory: No Symptoms Cardiac: No Symptoms Abdominal/Gastrointestinal: Abdominal Pain, Nausea, Diarrhea, Constipation Genitourinary Symptoms: Dysuria Musculoskeletal: Arthralgias, Back Pain (DDD) Skin: No Symptoms Medications & Allergies Home Medications: Home Medication List Aspirin EC 81 mg [Ecotrin 81 mg] 81 mg PO DAILY 05/29/18 [History Confirmed 12/23/20] Calcium Carb, Citrate/Vit D3 [Calcium + D3 ER Tablet] 1 each PO DAILY 05/29/18 [History Confirmed 12/23/20] Doxazosin Mesylate 1 mg PO DAILY 05/29/18 [History Confirmed 12/23/20] Gabapentin 300 mg PO HS 05/29/18 [History Confirmed 12/23/20] Polyethylene Glycol 3350 17 gm [Miralax Powder 17GM PACKET] 17 gm PO DAILY 05/29/18 [History Confirmed 12/23/20] Solifenacin Succinate [Vesicare] 5 mg PO HS 05/29/18 [History Confirmed 12/23/20] Spironolactone 25 mg [Aldactone 25 MG] 25 mg PO DAILY 05/29/18 [History Confirmed 12/23/20] Docusate Sodium 100 mg [Colace 100 MG] 100 mg PO BID PRN #30 capsule 06/02/18 [Rx Confirmed 12/23/20] Ciprofloxacin [Cipro 500 MG] 500 mg PO BID #14 tablet 07/03/18 [Rx Confirmed 12/23/20] Diphenhydramine HCl 25 mg [Benadryl 25 mg Capsule] 25 mg PO BID 12/23/20 [History Confirmed 12/23/20] Famotidine [Pepcid] 40 mg PO DAILY 12/23/20 [History Confirmed 12/23/20] Ibuprofen 200 mg [Motrin 200 mg] 200 mg PO DAILY 12/23/20 [History Confirmed 12/23/20] Mecobalamin [B12 Active] 500 mcg PO DAILY 12/23/20 [History Confirmed 12/23/20] Metronidazole 500 mg [Flagyl 500 MG] 500 mg PO QID 12/23/20 [History Confirmed 12/23/20] Allergies/Adverse Reactions: Allergies Allergy/AdvReac Type Severity Reaction Status Date / Time No Known Drug Allergies Allergy Verified 12/23/20 13:13 - Past Medical History Past Medical History: Yes Neurological History: No Pertinent History, TIA ENT History: No Pertinent History, Cataracts Cardiac History: High Cholesterol, Hypertension Respiratory History: No Pertinent History Endocrine Medical History: No Pertinent History Musculoskelatal History: Arthritis, Degenerative Disk Disease GI Medical History: Diverticulitis, Diverticulosis History: No Pertinent History Pyscho-Social History: No Pertinent History Reproductive Disorders: No Pertinent History Comment: skin cancer face - Female History Are you now?: No - Past Surgical History Past Surgical History: Yes Neuro Surgical History: No Pertinent History Cardiac History: No Pertinent History Respiratory Surgery: No Pertinent History GI Surgical History: Appendectomy Genitourinary Surgical Hx: No Pertinent History Musculskeletal Surgical Hx: Orthopedic Surgery Female Surgical History: Hysterectomy Other Surgical History: back surgery, bilateral ankle surgeries. left knee surgery. rhinoplasty. - Social History Smoking Status: Never smoker Exposure to second hand smoke: No Alcohol: None Drug Use: none Significant Family History: no pertinent family hx - Physical Exam Vital Signs: Vital Signs - 24 hr Temp Pulse Resp BP Pulse Ox 12/24/20 12:00 97.3 F 73 18 136/63 96 12/24/20 07:26 98.5 F 73 14 132/63 93 L 12/24/20 04:00 97.9 F 83 18 122/55 97 12/23/20 23:51 99.2 F 96 H 18 124/58 97 12/23/20 21:43 99 12/23/20 21:10 99.4 F 95 H 18 157/73 97 12/23/20 17:42 99 H 20 170/86 96 12/23/20 16:38 91 H 20 170/86 95 12/23/20 15:07 91 H 20 170/86 97 12/23/20 14:41 97.6 F 91 H 20 138/90 94 L General Appearance: no apparent distress Neurologic Exam: alert, oriented x 3, cooperative, normal mood/affect Eye Exam: eyes nml inspection Ears, Nose, Throat Exam: normal ENT inspection Neck Exam: normal inspection Respiratory Exam: normal breath sounds Cardiovascular Exam: regular rate/rhythm Gastrointestinal/Abdomen Exam: soft (BS quiet), tenderness (LLQ), distention Pelvic Exam: not done Rectal Exam: other (fecal impaction per CT abd/pelvis) Extremity Exam: normal inspection Skin Exam: normal color Results - Labs Lab/Micro Results: Lab Results-Last 24 Hours 12/23/20 12/23/20 12/23/20 Range/Units 13:19 15:03 16:20 WBC (4.0-10.5) K/mm3 RBC (4.1-5.4) M/mm3 Hgb (12.0-16.0) gm/dl Hct (35-47) % MCV (78-100) fl MCH (26-32) pg MCHC (32-36) g/dl RDW (11.5-14.0) % Plt Count (150-450) K/mm3 MPV (7.5-11.0) fl Segmented Neutrophils (36.0-66.0) % Band Neutrophils (0.0-2.0) % Lymphocytes (Manual) (24-44) % Monocytes (Manual) (0.0-12.0) % Eosinophils (Manual) (0.00-3.0) % Basophils (Manual) (0.0-1.0) % Platelet Estimate (NORMAL) RBC Morphology Sodium (137-145) mmol/L Potassium (3.5-5.1) mmol/L Chloride (98-107) mmol/L Carbon Dioxide (22-30) mmol/L Anion Gap (5-15) MEQ/L BUN (7-17) mg/dL Creatinine (0.52-1.04) mg/dL Estimated GFR ML/MIN Glucose (74-106) mg/dL Calcium (8.4-10.2) mg/dL Total Bilirubin (0.2-1.3) mg/dL AST (14-36) U/L ALT (0-35) U/L Alkaline Phosphatase (38-126) U/L Troponin I < 0.012 < 0.012 (0.000-0.034) ng/mL Serum Total Protein (6.3-8.2) g/dL Albumin (3.5-5.0) g/dL Urine Color JEAN (YELLOW) Urine Appearance CLOUDY (CLEAR) Urine pH 6.0 (5-6) Ur Specific [place] 1.020 (1.005-1.025) Urine Protein 100 (Negative) Urine Ketones MODERATE (NEGATIVE) Urine Blood MODERATE (0-5) Danilo/ul Urine Nitrite NEGATIVE (NEGATIVE) Urine Bilirubin NEGATIVE (NEGATIVE) Urine Urobilinogen 2 (0-1) mg/dL Ur Leukocyte Esterase MODERATE (NEGATIVE) Urine WBC (Auto) >100 (0-5) /HPF Urine RBC (Auto) 26-50 (0-2) /HPF U Epithel Cells (Auto) RARE (FEW) /HPF Urine Bacteria (Auto) MODERATE (NEGATIVE) /HPF Urine Mucus (Auto) SLIGHT (NEGATIVE) /HPF Urine Culture Reflexed YES (NO) Urine Glucose NEGATIVE (NEGATIVE) mg/dL C. difficile Screen (NEGATIVE) C.difficile 027-NAP1-B1 (NEGATIVE) SARS-CoV-2 (PCR) (NEGATIVE) 12/23/20 12/23/20 12/24/20 Range/Units 18:23 22:15 01:20 WBC (4.0-10.5) K/mm3 RBC (4.1-5.4) M/mm3 Hgb (12.0-16.0) gm/dl Hct (35-47) % MCV (78-100) fl MCH (26-32) pg MCHC (32-36) g/dl RDW (11.5-14.0) % Plt Count (150-450) K/mm3 MPV (7.5-11.0) fl Segmented Neutrophils (36.0-66.0) % Band Neutrophils (0.0-2.0) % Lymphocytes (Manual) (24-44) % Monocytes (Manual) (0.0-12.0) % Eosinophils (Manual) (0.00-3.0) % Basophils (Manual) (0.0-1.0) % Platelet Estimate (NORMAL) RBC Morphology Sodium (137-145) mmol/L Potassium (3.5-5.1) mmol/L Chloride (98-107) mmol/L Carbon Dioxide (22-30) mmol/L Anion Gap (5-15) MEQ/L BUN (7-17) mg/dL Creatinine (0.52-1.04) mg/dL Estimated GFR ML/MIN Glucose (74-106) mg/dL Calcium (8.4-10.2) mg/dL Total Bilirubin (0.2-1.3) mg/dL AST (14-36) U/L ALT (0-35) U/L Alkaline Phosphatase (38-126) U/L Troponin I < 0.012 (0.000-0.034) ng/mL Serum Total Protein (6.3-8.2) g/dL Albumin (3.5-5.0) g/dL Urine Color (YELLOW) Urine Appearance (CLEAR) Urine pH (5-6) Ur Specific [place] (1.005-1.025) Urine Protein (Negative) Urine Ketones (NEGATIVE) Urine Blood (0-5) Danilo/ul Urine Nitrite (NEGATIVE) Urine Bilirubin (NEGATIVE) Urine Urobilinogen (0-1) mg/dL Ur Leukocyte Esterase (NEGATIVE) Urine WBC (Auto) (0-5) /HPF Urine RBC (Auto) (0-2) /HPF U Epithel Cells (Auto) (FEW) /HPF Urine Bacteria (Auto) (NEGATIVE) /HPF Urine Mucus (Auto) (NEGATIVE) /HPF Urine Culture Reflexed (NO) Urine Glucose (NEGATIVE) mg/dL C. difficile Screen NEGATIVE (NEGATIVE) C.difficile 027-NAP1-B1 PRESUMPTIVE NEGATIVE (NEGATIVE) SARS-CoV-2 (PCR) NEGATIVE (NEGATIVE) 12/24/20 12/24/20 Range/Units 01:20 01:20 WBC 8.2 (4.0-10.5) K/mm3 RBC 4.19 (4.1-5.4) M/mm3 Hgb 12.5 (12.0-16.0) gm/dl Hct 39.9 (35-47) % MCV 95.2 (78-100) fl MCH 29.8 (26-32) pg MCHC 31.3 L (32-36) g/dl RDW 13.0 (11.5-14.0) % Plt Count 428 (150-450) K/mm3 MPV 9.4 (7.5-11.0) fl Segmented Neutrophils 61 (36.0-66.0) % Band Neutrophils 3 H (0.0-2.0) % Lymphocytes (Manual) 22 L (24-44) % Monocytes (Manual) 10 (0.0-12.0) % Eosinophils (Manual) 3 (0.00-3.0) % Basophils (Manual) 1 (0.0-1.0) % Platelet Estimate NORMAL (NORMAL) RBC Morphology NORMAL Sodium 137 (137-145) mmol/L Potassium 4.6 D (3.5-5.1) mmol/L Chloride 101 (98-107) mmol/L Carbon Dioxide 24 (22-30) mmol/L Anion Gap 15.5 H (5-15) MEQ/L BUN 17 (7-17) mg/dL Creatinine 0.88 (0.52-1.04) mg/dL Estimated GFR > 60.0 ML/MIN Glucose 120 H (74-106) mg/dL Calcium 9.6 (8.4-10.2) mg/dL Total Bilirubin 0.20 (0.2-1.3) mg/dL AST 30 (14-36) U/L ALT 13 (0-35) U/L Alkaline Phosphatase 126 (38-126) U/L Troponin I (0.000-0.034) ng/mL Serum Total Protein 7.2 (6.3-8.2) g/dL Albumin 3.9 (3.5-5.0) g/dL Urine Color (YELLOW) Urine Appearance (CLEAR) Urine pH (5-6) Ur Specific [place] (1.005-1.025) Urine Protein (Negative) Urine Ketones (NEGATIVE) Urine Blood (0-5) Danilo/ul Urine Nitrite (NEGATIVE) Urine Bilirubin (NEGATIVE) Urine Urobilinogen (0-1) mg/dL Ur Leukocyte Esterase (NEGATIVE) Urine WBC (Auto) (0-5) /HPF Urine RBC (Auto) (0-2) /HPF U Epithel Cells (Auto) (FEW) /HPF Urine Bacteria (Auto) (NEGATIVE) /HPF Urine Mucus (Auto) (NEGATIVE) /HPF Urine Culture Reflexed (NO) Urine Glucose (NEGATIVE) mg/dL C. difficile Screen (NEGATIVE) C.difficile 027-NAP1-B1 (NEGATIVE) SARS-CoV-2 (PCR) (NEGATIVE) - Radiology Impressions Radiology Exams & Impressions: Radiology Procedures Category Date Time Status ABDOMEN AND PELVIS W CONTRAST [CT] Stat Exams 12/23/20 14:43 Completed Assessment/Plan (1) UTI (urinary tract infection) Current Visit: Yes Status: Acute Assessment & Plan: Culture pending Code(s): N39.0 - URINARY TRACT INFECTION, SITE NOT SPECIFIED (2) Diarrhea Current Visit: Yes Status: Chronic Qualifiers: Diarrhea type: unspecified type Qualified Code(s): R19.7 - Diarrhea, unspecified Assessment & Plan: fecal impaction Code(s): R19.7 - DIARRHEA, UNSPECIFIED (3) Fecal impaction in rectum Current Visit: Yes Status: Acute Assessment & Plan: suppository/enema Code(s): K56.41 - FECAL IMPACTION (4) Diverticulosis large intestine w/o perforation or abscess w/o bleeding Current Visit: Yes Status: Chronic Assessment & Plan: Has Hx perforation in the past treated with bowel rest. Code(s): K57.30 - DVRTCLOS OF LG INT W/O PERFORATION OR ABSCESS W/O BLEEDING
[2020-12-24] MEDS ORDERED: GLYCERIN ADULT SUPPOSITORY RC ONE (14:06)
[2020-12-24] MEDS: NEURONTIN 300 MG PO SCH (21:07)
[2020-12-25 00:24] LABS: C. Difficile Organism NEGATIVE (NEGATIVE); Campylobacter NEGATIVE (NEGATIVE); Cryptosporidium NEGATIVE (NEGATIVE); Cyclospora cayentanensis NEGATIVE (NEGATIVE); Enteroaggregative E.coli NEGATIVE (NEGATIVE); Enteropathogenic E.coli NEGATIVE (NEGATIVE); Enterotoxigenic E.coli NEGATIVE (NEGATIVE); Plesiomonas shigelloides NEGATIVE (NEGATIVE); Salmonella NEGATIVE (NEGATIVE); Shiga-like toxin prod.E.coli NEGATIVE (NEGATIVE); Vibrio NEGATIVE (NEGATIVE); Vibrio cholerae NEGATIVE (NEGATIVE); Yersinia enterocolitica NEGATIVE (NEGATIVE)
[2020-12-25 00:25] LABS: Adenovirus F 40/41 NEGATIVE (NEGATIVE); Astrovirus NEGATIVE (NEGATIVE); Entamoeaba histolytica NEGATIVE (NEGATIVE); Giardia lamblia NEGATIVE (NEGATIVE); Norovirus GI/GII NEGATIVE (NEGATIVE); Rotavirus A NEGATIVE (NEGATIVE); Sapovirus NEGATIVE (NEGATIVE)
[2020-12-25] MEDS: Sodium Chloride 0.9% 1000 ML 1,000 ML IV SCH (05:48)
--- NOTE | 2020-12-25 08:16 | XRAY ---
Indication: Post suppository. Fecal impaction. Comparison: December 19, 2020. KUB again demonstrates nonspecific nonobstructed bowel gas pattern with moderate fecal clearing including rectum. Pelvis again demonstrates dense barium in diverticuli. Solid organs unremarkable. Osseous structures intact again with osteopenia, multilevel degenerative spondylosis, scoliosis, and L4 spinous process hardware. Impression: Negative abdomen, improved since the comparison study.
[2020-12-25] MEDS: BENADRYL 25 MG CAPSULE PO SCH (11:59)
[2020-12-25] MEDS: Aldactone 25 MG PO SCH (11:59)
[2020-12-25] MEDS: ECOTRIN 81 MG PO SCH (11:59)
[2020-12-25] MEDS: Calcium 500MG W/Vit D Tablet PO SCH (11:59)
[2020-12-25] MEDS: ROCEPHIN 1 Gm-D5w 50 ml Bag** 1 G/50 ML IVPB IV SCH (11:59)
[2020-12-25] MEDS: Pepcid 20 MG VIAL IV SCH (12:01)
[2020-12-25 12:36] VITALS: BP 123/67; PULSE 78; O2SAT 93
--- NOTE | 2020-12-25 14:19 | PCM.DS ---
Discharge Summary Date of Admission: 12/23/20 20:48 Date of Discharge: 12/25/20 Admitting Physician: GUILLAUME ESCALANTE Primary Care Provider: GUILLAUME ESCALANTE Allergies Allergies No Known Drug Allergies Allergy (Verified 12/23/20 13:13) Hospital Summary - Hospital Course Hospital Course: Patient is an 80 yr old female patient of Dr Escalante admitted through ER with low abd pain and diarrhea. Diarrhea has been for a few weeks. She has chronic bowel and urinary incontinence and wears a depends. CT abd and pelvis showed diverticulosis and fecal impaction. UA moderate ketones,>100 WBCs. Culture grew Enterococcus faecus-see sens. Fecal impaction relieved somewhat after enema and disempaction and patient reported relief of LLQ pain. Note patient has a Hx perforated diverticula in the past and tx with bowel rest. Dr José did a follow up colonoscopy but was unable to pass the scope to complete the exam . She is to have another colonoscopy using a smaller scope but postponed this. Her appt is in MAR 2021 to consult with him. - Vitals & Intake/Output Vital Signs: Vital Signs Temperature 98.1 F 12/25/20 12:00 Pulse Rate 78 12/25/20 12:00 Respiratory Rate 20 12/25/20 12:00 Blood Pressure 123/67 12/25/20 12:00 O2 Sat by Pulse Oximetry 93 L 12/25/20 12:00 Intake & Output: Intake & Output 12/23/20 12/24/20 12/25/20 12/26/20 11:59 11:59 11:59 11:59 Intake Total 1015 3364 Output Total 550 640 Balance 465 2724 Weight 91.3 kg - Lab Result Diagrams: 12/24/20 01:20 12/24/20 01:20 Lab Results-Last 24 Hrs: Lab Results-Last 24 Hours 12/23/20 Range/Units 19:24 Stl C. cayetanensis PCR NEGATIVE (NEGATIVE) Stl Adenov F 40/41 PCR NEGATIVE (NEGATIVE) Stool Astrovirus (PCR) NEGATIVE (NEGATIVE) Stool Cryptosporidium PCR NEGATIVE (NEGATIVE) Stool E coli O157 PCR NEGATIVE (NEGATIVE) Stool EPEC (PCR) NEGATIVE (NEGATIVE) Stool EAEC (PCR) NEGATIVE (NEGATIVE) Stl E. histolytica PCR NEGATIVE (NEGATIVE) Stl P. shigelloides PCR NEGATIVE (NEGATIVE) Stool Sapovirus (PCR) NEGATIVE (NEGATIVE) St Y.enterocolitica PCR NEGATIVE (NEGATIVE) Stool Vibrio (PCR) NEGATIVE (NEGATIVE) Stl Vibrio cholerae PCR NEGATIVE (NEGATIVE) Stl Norovirus GI/GII PCR NEGATIVE (NEGATIVE) Campylobacter (PCR) NEGATIVE (NEGATIVE) C. difficile (PCR) NEGATIVE (NEGATIVE) Enterotoxigenic E. coli NEGATIVE (NEGATIVE) E.coli Shiga Toxins NEGATIVE (NEGATIVE) Giardia lamblia NEGATIVE (NEGATIVE) Rotavirus A (PCR) NEGATIVE (NEGATIVE) Salmonella (PCR) NEGATIVE (NEGATIVE) Shigella (PCR) NEGATIVE (NEGATIVE) Micro Results-Entire Visit: Microbiology 12/23/20 15:03 Urine Culture - Final Urine, Void Enterococcus Faecium - Radiology Exams Ordered Rad Exams-Entire Visit: Radiology Procedures Category Date Time Status ABDOMEN 2 VIEW Routine Exams 12/25/20 06:30 Completed ABDOMEN AND PELVIS W CONTRAST [CT] Stat Exams 12/23/20 14:43 Completed Discharge Exam General Appearance: no apparent distress Neurologic Exam: alert, oriented x 3, cooperative, normal mood/affect Eye Exam: eyes nml inspection Ears, Nose, Throat Exam: normal ENT inspection Neck Exam: normal inspection Respiratory Exam: normal breath sounds Cardiovascular Exam: regular rate/rhythm Gastrointestinal/Abdomen Exam: soft, normal bowel sounds (nontender) Extremity Exam: normal inspection Final Diagnosis/Problem List - Final Discharge Diagnosis/Problem (1) UTI (urinary tract infection) Current Visit: Yes Status: Acute Assessment & Plan: Urine Culture grew Enteroccus Faecius sens to Levaquin- will tx at home on oral and follow up wit Dr Escalante Code(s): N39.0 - URINARY TRACT INFECTION, SITE NOT SPECIFIED (2) Diarrhea Current Visit: Yes Status: Chronic Assessment & Plan: improved Code(s): R19.7 - DIARRHEA, UNSPECIFIED (3) Fecal impaction in rectum Current Visit: Yes Status: Resolved Assessment & Plan: enema and manual disimpaction with relief. Appt with Dr José needs moved up from MAR 2021 Code(s): K56.41 - FECAL IMPACTION (4) Diverticulosis large intestine w/o perforation or abscess w/o bleeding Current Visit: Yes Status: Chronic Assessment & Plan: Hx perforated Diverticula tx with bowel rest .Dr José. Code(s): K57.30 - DVRTCLOS OF LG INT W/O PERFORATION OR ABSCESS W/O BLEEDING (5) Abdominal pain Current Visit: No Status: Resolved Onset Date: ~05/29/18 Code(s): R10.9 - UNSPECIFIED ABDOMINAL PAIN - Discharge Disposition: Home, Self-Care Condition: Good Prescriptions: New Levofloxacin [Levaquin] 500 mg PO DAILY #5 tablet Continue Aspirin EC 81 mg [Ecotrin 81 mg] 81 mg PO DAILY Polyethylene Glycol 3350 17 gm [Miralax Powder 17GM PACKET] 17 gm PO DAILY Spironolactone 25 mg [Aldactone 25 MG] 25 mg PO DAILY Solifenacin Succinate [Vesicare] 5 mg PO HS Gabapentin 300 mg PO HS Doxazosin Mesylate 1 mg PO DAILY Calcium Carb, Citrate/Vit D3 [Calcium + D3 ER Tablet] 1 each PO DAILY Docusate Sodium 100 mg [Colace 100 MG] 100 mg PO BID PRN #30 capsule PRN Reason: Constipation Famotidine [Pepcid] 40 mg PO DAILY Ibuprofen 200 mg [Motrin 200 mg] 200 mg PO DAILY Mecobalamin [B12 Active] 500 mcg PO DAILY Discontinued Ciprofloxacin [Cipro 500 MG] 500 mg PO BID #14 tablet Diphenhydramine HCl 25 mg [Benadryl 25 mg Capsule] 25 mg PO BID Metronidazole 500 mg [Flagyl 500 MG] 500 mg PO QID Additional Instructions: See Dr Alexis José ,call his office to move your appt up sooner from your MAR 2021 scheduled visit due to fecal impaction Follow up with: GUILLAUME ESCALANTE MD [Primary Care Provider] -
== END 2020-12-25 15:55 | disposition home or self-care (01) ==
LOC: ED 12:54 → MED SURG 20:48
PROVIDERS: ADMIT Family Medicine; ATTEND Family Medicine
DX: N39.0 Urinary tract infection, site not specified (principal); R19.7 Diarrhea, unspecified; K57.30 Diverticulosis of large intestine without perforation or abscess without bleeding; K56.41 Fecal impaction; R53.1 Weakness; R11.0 Nausea; Z79.899 Other long term (current) drug therapy; R10.32 Left lower quadrant pain; I10 Essential (primary) hypertension; E78.00 Pure hypercholesterolemia, unspecified; Z86.73 Personal history of transient ischemic attack (TIA), and cerebral infarction without residual deficits; Z20.828 Contact with and (suspected) exposure to other viral communicable diseases
CPT/HCPCS: 0097U; 36000; 36415; 74021; 74177; 80053; 81001; 82150; 83605; 83690; 84484; 85025; 87077; 87086; 87186; 87493; 93005; 96365; 96374; 96375; 99285; G0378; U0003; J0696; J2405; J3010; A9270-GY